=== PATIENT | female | born 1930 | race Caucasian/White ===

== ENCOUNTER 2018-02-03 09:08 | Inpatient (IN) | payer MEDICARE ==
[~2018-02-03] VITALS: Ht 157.5 cm; Wt 75.3 kg
[2018-02-03 10:00] VITALS: BP 139/87
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
[2018-02-03] MEDS ORDERED: VENL75CA62 PO (10:57)
[2018-02-03] MEDS ORDERED: GABA-534 PO (10:57)
[2018-02-03] MEDS ORDERED: GABA600T2 PO (10:57)
[2018-02-03] MEDS ORDERED: DOCU100C58 PO (10:57)
[2018-02-03] MEDS ORDERED: MEMA10TA PO (10:57)
[2018-02-03] MEDS ORDERED: MELO-107 PO (10:57)
[2018-02-03] MEDS ORDERED: AMPI500C11 PO (10:57)
[2018-02-03] MEDS ORDERED: MIRT15TA7 PO (11:00)
--- NOTE | 2018-02-03 11:20 | NUR ---
RIGHT FOREARM IV ACCESS ESTABLISHED. 20G. PATENT AND INTACT.
[2018-02-03] MEDS ORDERED: GABAPENTIN 300 MG CAPSULE PO SCH ×2 (13:00→22:00)
[2018-02-03] MEDS ORDERED: ACETAMINOPHEN 325 MG TABLET PO PRN (13:00)
[2018-02-03] MEDS ORDERED: ONDANSETRON HCL/PF 4 MG/2 ML VIAL IV PRN (13:00)
[2018-02-03 13:32] LABS: BASOPHILS % (AUTO) 0.9 % (0.0-2.0); EOSINOPHILS % (AUTO) 2.8 % (0.0-6.0); HEMATOCRIT 40 % (33-45); HEMOGLOBIN 12.8 g/dL (11.5-14.8); LYMPHOCYTES # (AUTO) 1.3 /CMM (0.8-4.8); LYMPHOCYTES % (AUTO) 32.8 % (20.0-44.0); MEAN CORPUSCULAR HGB CONC 32 g/dl (31.0-36.0); MEAN CORPUSCULAR VOLUME 85 fL (82-100); MONOCYTES # (AUTO) 0.3 /CMM (0.1-1.30); MONOCYTES % (AUTO) 6.9 % (2.0-12.0); NEUTROPHILS # (AUTO) 2.3 /CMM (1.8-8.9); NEUTROPHILS % (AUTO) 56.6 % (43.0-81.0); PLATELET COUNT (AUTO) 181 /CMM (150-450); RDW COEFFICIENT OF VARIATION 15.5 (11.5-15.0); RED BLOOD CELL COUNT(AUTO) 4.74 MIL/uL (4.0-5.2); WHITE BLOOD COUNT (AUTO) 4.1 K/uL (4.3-11.0)
[2018-02-03 13:46] LABS: CALCIUM, SERUM 9.3 mg/dL (8.5-10.1); CARBON DIOXIDE 30 mmol/L (21-32); CHLORIDE 103 mmol/L (98-107); CREATININE 1.1 mg/dL (0.6-1.3); GLUCOSE 130 mg/dL (74-106); POTASSIUM 3.3 mmol/L (3.5-5.1); SODIUM SERUM 141 mmol/L (136-145); UREA NITROGEN, BLOOD 16 mg/dL (7-18)
[2018-02-03 13:52] LABS: ALANINE AMINOTRANSFERASE 33 U/L (12-78); ALBUMIN 3.4 g/dL (3.4-5.0); ALKALINE PHOSPHATASE 55 U/L (46-116); ASPARTATE AMINOTRANSFERASE 48 U/L (15-37); BILIRUBIN,TOTAL 0.3 mg/dL (0.2-1.0)
[2018-02-03] MEDS ORDERED: LEVOFLOXACIN 500 MG /D5W 100ML 500 MG in PREMIX 1 EA IV ONE (14:00)
[2018-02-03] MEDS: Potassium Chloride 20 MEQ in IV D5/ 0.9% NACL 1,000 ML IV PRN (14:45)
[2018-02-03] MEDS: ENOXAPARIN SODIUM 30 MG/0.3 ML DISP.SYRIN SQ SCH (14:47)
[2018-02-03 16:00] VITALS: BP 148/93
[2018-02-03] MEDS: DOCUSATE SODIUM 100 MG CAPSULE PO SCH (17:13)
[2018-02-03] MEDS: MELOXICAM 7.5 MG TABLET PO SCH (17:13)
[2018-02-03] MEDS: HYDROCODONE/APAP 5/325MG 1 EACH TABLET PO PRN (18:22)
--- NOTE | 2018-02-03 19:20 | NUR ---
MS RN OPENING NOTE Patient was seen sitting upright in bed AAOx2, breathing comfortably on RA with no SOB, and no signs of acute distress. D5NS with 20mEq of KCl is running at 80ml/hr through the right FA with no signs of leaking or infiltration. Patient was educated on the use of the call rossa, as well the need to collect urine for culture and UA; patient verbalized understanding. and family are currently at the bedside. Bed is low/locked, two side rails up, and call rosas within reach. Patient has no immediate needs/concerns at this time. Will continue to monitor.
--- NOTE | 2018-02-03 19:20 | NUR ---
MS RN CLOSING NOTE PATIENT IN BED. ALERT ORIENTED X2-3. ON ROOM AIR. TOLERATING WELL. IN NO APPARENT DISTRESS OR DISCOMFORT AT THIS TIME. RESPIRATIONS EVEN AND UNLABORED. DENIES PAIN AND SOB. PATIENT IS ABLE TO COMMUNICATE NEEDS. IV ACCESS ON RIGHT FOREARM 22G, WITH FLUIDS RUNNING AT 80ML/HR. PATIENT IS ABLE TO USE BATHROOM WITH ASSISTANCE. DIAPER IN PLACE3 FOR OCCASIONAL INCONTINENCE. ALL NEEDS ATTENDED. ORDERS CARRIED OUT. ALL DUE MEDICATIONS GIVEN. SAFETY MEASURES IN PLACE, FAMILY AT BEDSIDE. BED IN LOW LOCKED POSITION, SIDE RAILS UP X2, CALL LIGHT WITHIN EASY REACH. WILL ENDORSE TO PM NURSE FOR ARGELIA.
[2018-02-03 20:00] VITALS: BP 151/81
[2018-02-03] MEDS: MIRTAZAPINE 15 MG TABLET PO SCH (21:22)
[2018-02-03] MEDS: GABAPENTIN 300 MG CAPSULE PO SCH (21:23)
[2018-02-03] MEDS: MEMANTINE HCL 5 MG TABLET PO SCH (21:23)
[2018-02-03] MEDS: POLYETHYLENE GLYCOL 3350 17 GM POWD.PACK PO SCH (21:23)
--- NOTE | 2018-02-04 02:30 | NUR ---
MS RN NOTE - IV out, new IV inserted Upon entering the patient's room, I observed the patient's IV had been pulled out or removed from her right FA. A new IV was inserted into the patient's right wrist (22g); IV had positive blood return and flushed easily with no pain/discomfort. IVF D5NS w/ KCl was reconnected and is running at 80ml/hr with no signs of leaking or infiltration.
[2018-02-04] MEDS: Potassium Chloride 20 MEQ in IV D5/ 0.9% NACL 1,000 ML IV PRN (05:16)
--- NOTE | 2018-02-04 07:02 | NUR ---
MS RN CLOSING NOTE Patient slept well overnight without complications and remains in stable condition with no signs of acute distress. Patient care endorsed to day shift nurse.
[2018-02-04 07:14] LABS: BASOPHILS % (AUTO) 0.3 % (0.0-2.0); EOSINOPHILS % (AUTO) 3.8 % (0.0-6.0); HEMATOCRIT 37 % (33-45); HEMOGLOBIN 11.8 g/dL (11.5-14.8); LYMPHOCYTES # (AUTO) 1.5 /CMM (0.8-4.8); LYMPHOCYTES % (AUTO) 40.8 % (20.0-44.0); MEAN CORPUSCULAR HGB CONC 32 g/dl (31.0-36.0); MEAN CORPUSCULAR VOLUME 86 fL (82-100); MONOCYTES # (AUTO) 0.4 /CMM (0.1-1.30); MONOCYTES % (AUTO) 9.7 % (2.0-12.0); NEUTROPHILS # (AUTO) 1.7 /CMM (1.8-8.9); NEUTROPHILS % (AUTO) 45.4 % (43.0-81.0); PLATELET COUNT (AUTO) 133 /CMM (150-450); RDW COEFFICIENT OF VARIATION 16.1 (11.5-15.0); RED BLOOD CELL COUNT(AUTO) 4.25 MIL/uL (4.0-5.2); WHITE BLOOD COUNT (AUTO) 3.8 K/uL (4.3-11.0)
[2018-02-04 07:24] LABS: CALCIUM, SERUM 7.8 mg/dL (8.5-10.1); CARBON DIOXIDE 30 mmol/L (21-32); CHLORIDE 106 mmol/L (98-107); CREATININE 1.3 mg/dL (0.6-1.3); GLUCOSE 140 mg/dL (74-106); MAGNESIUM 1.5 mg/dL (1.8-2.4); POTASSIUM 3.1 mmol/L (3.5-5.1); SODIUM SERUM 145 mmol/L (136-145); UREA NITROGEN, BLOOD 13 mg/dL (7-18)
[2018-02-04 08:00] VITALS: BP 174/113
--- NOTE | 2018-02-04 08:00 | NUR ---
MS NELL AM NOTES Patient was seen sitting upright in bed AAOx2, breathing comfortably on RA with no SOB, and no signs of acute distress. D5NS with 20mEq of KCl is running at 80ml/hr through the right WRIST with no signs of leaking or infiltration. Patient was educated on the use of the call rosas, as well the need to collect urine for culture and UA; patient verbalized understanding. and family are currently at the bedside. Bed is low/locked, two side rails up, and call rosas within reach. Patient has no immediate needs/concerns at this time. Will continue to monitor.
[2018-02-04] MEDS ORDERED: POTASSIUM CHLORIDE 20 MEQ TAB.PRT.SR PO ONE (08:30)
[2018-02-04] MEDS ORDERED: CLONIDINE HCL 0.1 MG TABLET PO PRN (08:30)
[2018-02-04] MEDS: VENLAFAXINE XR 75 MG CAP.SR.24H PO SCH (09:12)
[2018-02-04] MEDS: Magnesium 1GM/D5W 100ML PREMIX 100 ML IV SCH ×2 (09:12→11:13)
[2018-02-04] MEDS: DOCUSATE SODIUM 100 MG CAPSULE PO SCH ×2 (09:12→18:52)
[2018-02-04] MEDS: GABAPENTIN 300 MG CAPSULE PO SCH ×3 (09:12→21:33)
[2018-02-04] MEDS: ENOXAPARIN SODIUM 30 MG/0.3 ML DISP.SYRIN SQ SCH (09:13)
[2018-02-04] MEDS: PANTOPRAZOLE 40 MG TABLET.DR PO SCH (09:14)
--- NOTE | 2018-02-04 09:40 | NUR ---
PT WALKED WITH P.T.,RANIER USING FWW WITH ASSIST ALONG THE HALLWAY TOLERATING WELL.HELD MAG TEMPORARILY.WILL RESUME AFTER P.T. TX.
--- NOTE | 2018-02-04 10:31 | NUR ---
PT IS BROUGHT DOWN TO RADIOLOGY FOR XRAY OF LUMBAR SPINE COMPLETE D/T BACK PAIN.
[2018-02-04] MEDS: LEVOFLOXACIN 250 MG /D5W 50 ML 250 MG in PREMIX 1 EA IV SCH (14:55)
--- NOTE | 2018-02-04 18:00 | NUR ---
PT RESTING IN BED DENYING ANY PAIN OR DISTRESS.WITH ONGOING IVF OF NS+20MEQ KCL INFUSING WELL TO RT WRIST.CALL LIGHT PLACED WITHIN REACH.
[2018-02-04] MEDS: MELOXICAM 7.5 MG TABLET PO SCH (18:53)
[2018-02-04 19:08] LABS: APPEARANCE,URINE SL CLOUDY (CLEAR); BILIRUBIN,URINE NEGATIVE (NEGATIVE); BLOOD, URINE NEGATIVE Ery/uL (NEGATIVE); COLOR,URINE YELLOW (YELLOW); KETONES,URINE NEGATIVE (NEGATIVE); LEUKOCYTE ESTERASE ,URINE NEGATIVE (NEGATIVE); NITRITE, URINE NEGATIVE (NEGATIVE); PH,URINE 7.5 (5.0-8.0); PROTEIN,URINE NEGATIVE (NEGATIVE); UGLUCOSE NEGATIVE (NEGATIVE); UROBILINOGEN,URINE 0.2 EU/dL (0.2)
--- NOTE | 2018-02-04 19:30 | NUR ---
RECEIVED PT IN BED W/ AT THE BED SIDE. BREATHING EVENLY .NO SOB. NAD. SKIN WARM AND DRY, W/ C/O LOWER BACK PAIN. ON ONGOING IVF HYDRATION AGUSTO WELL. IV SITE INTACT AND PATENT. NEEDS ATTENDED. BED LOW LOCKED. CALL LIGHT WITHIN REACH, WILL CONT TO MONITOR,
[2018-02-04 20:00] VITALS: BP 145/94
[2018-02-04] MEDS: HYDROCODONE/APAP 5/325MG 1 EACH TABLET PO PRN (20:06)
--- NOTE | 2018-02-04 20:10 | NUR ---
NORCO GIVEN FOR C/O LOWER BACK. PT WAS ALSO PROVIDED WITH A WARM PACK. WILL CONT TO MONITOR ,
[2018-02-04] MEDS: POLYETHYLENE GLYCOL 3350 17 GM POWD.PACK PO SCH (21:32)
[2018-02-04] MEDS: MEMANTINE HCL 5 MG TABLET PO SCH (21:33)
[2018-02-04] MEDS: MIRTAZAPINE 15 MG TABLET PO SCH (21:33)
[2018-02-05] MEDS: Potassium Chloride 20 MEQ in IV D5/ 0.9% NACL 1,000 ML IV PRN (05:22)
[2018-02-05 06:17] LABS: CALCIUM, SERUM 7.7 mg/dL (8.5-10.1); CARBON DIOXIDE 28 mmol/L (21-32); CHLORIDE 108 mmol/L (98-107); CREATININE 1.1 mg/dL (0.6-1.3); GLUCOSE 123 mg/dL (74-106); MAGNESIUM 1.8 mg/dL (1.8-2.4); POTASSIUM 3.4 mmol/L (3.5-5.1); SODIUM SERUM 144 mmol/L (136-145); UREA NITROGEN, BLOOD 8 mg/dL (7-18)
[2018-02-05 06:19] LABS: BASOPHILS % (AUTO) 0.5 % (0.0-2.0); EOSINOPHILS % (AUTO) 4.4 % (0.0-6.0); HEMATOCRIT 37 % (33-45); HEMOGLOBIN 12.2 g/dL (11.5-14.8); LYMPHOCYTES # (AUTO) 1.5 /CMM (0.8-4.8); MEAN CORPUSCULAR HGB CONC 33 g/dl (31.0-36.0); MEAN CORPUSCULAR VOLUME 86 fL (82-100); MONOCYTES # (AUTO) 0.3 /CMM (0.1-1.30); MONOCYTES % (AUTO) 8.5 % (2.0-12.0); NEUTROPHILS # (AUTO) 1.8 /CMM (1.8-8.9); NEUTROPHILS % (AUTO) 47.6 % (43.0-81.0); PLATELET COUNT (AUTO) 116 /CMM (150-450); RDW COEFFICIENT OF VARIATION 15.4 (11.5-15.0); RED BLOOD CELL COUNT(AUTO) 4.34 MIL/uL (4.0-5.2); WHITE BLOOD COUNT (AUTO) 3.8 K/uL (4.3-11.0)
--- NOTE | 2018-02-05 06:24 | NUR ---
PT IN BED SLEEPING . BREATHING EVENLY, NO SOB. NO ACUTE DISTRESS DURING THE NIGHT. WITH EPISODES OF FORGETFULNESS. REMAINED ON CLOSE SUPERVISION FOR SAFETY AND FALL RISK. NEEDS ATTENDED. BED LOW LOCKED. CALL LIGHT WITHIN REACH. SRX3. BED ALARM ON. WILL CONT TO MONITOR AND WILL ENDORSE TO AM SHIFT FOR ARGELIA
[2018-02-05] MEDS: PANTOPRAZOLE 40 MG TABLET.DR PO SCH (07:24)
--- NOTE | 2018-02-05 07:30 | NUR ---
M/S RN - Assessment Patient awake, A/O x 2-3, forgetful, no apparent distress noted, tolerating room air, c/o mild lower back pain but refused to be medicated at this time. Patient stated "I'm okay for now." Xray lumbar spine shows no fracture or dislocation. IVF D5NS +20 meq KCl at 80 ml/hr infusing well on the right wrist with no signs of infiltration. Skin is intact, independent with bed mobility. Fall and aspiration precautions maintained. Patient educated on plan of care.
[2018-02-05 08:00] VITALS: BP 162/103
[2018-02-05] MEDS: GABAPENTIN 300 MG CAPSULE PO SCH ×3 (08:05→21:36)
[2018-02-05] MEDS: DOCUSATE SODIUM 100 MG CAPSULE PO SCH ×2 (08:05→16:24)
[2018-02-05] MEDS: VENLAFAXINE XR 75 MG CAP.SR.24H PO SCH (08:05)
[2018-02-05] MEDS: ENOXAPARIN SODIUM 30 MG/0.3 ML DISP.SYRIN SQ SCH (08:06)
[2018-02-05] MEDS: LEVOFLOXACIN 250 MG /D5W 50 ML 250 MG in PREMIX 1 EA IV SCH (13:35)
[2018-02-05 16:00] VITALS: BP 147/94
[2018-02-05] MEDS: ENSURE ENLIVE 237 ML LIQUID (VANILLA) PO SCH (17:09)
[2018-02-05] MEDS: MELOXICAM 7.5 MG TABLET PO SCH (17:10)
--- NOTE | 2018-02-05 17:37 | NUR ---
M/S RN - Closing notes No significant change in condition noted, remain afebrile, still c/o mild low back pain but refused medication. Family at bedside updated on treatment plan. Possible discharge to SNF ([facility]) vs home with home health tomorrow if stable. Will continue with current medical management.
[2018-02-05 20:00] VITALS: BP 152/83
[2018-02-05] MEDS: POLYETHYLENE GLYCOL 3350 17 GM POWD.PACK PO SCH (21:36)
[2018-02-05] MEDS: MIRTAZAPINE 15 MG TABLET PO SCH (21:36)
[2018-02-05] MEDS: MEMANTINE HCL 5 MG TABLET PO SCH (21:36)
[2018-02-05] MEDS: HYDROCODONE/APAP 5/325MG 1 EACH TABLET PO PRN (22:35)
--- NOTE | 2018-02-06 06:27 | NUR ---
MS RN NOTES PT AWAKE & RESPONSIVE. NOT IN ANY DISTRESS. NO SOB NOTED. DENIES ANY PAIN OR DISCOMFORT AT THIS TIME. WITH IV-HL PATENT & INTACT. MONITORED ACCORDINGLY. CALL LIGHT WITHIN REACH. BED IN LOWEST POSITION. SR UP X 3 WITH BED ALARM ON FOR SAFETY. WILL ENDORSE TO NEXT SHIFT.
--- NOTE | 2018-02-06 07:32 | NUR ---
MS RN NOTES PATIENT RECEIVED RESTING INSIDE ROOM. SLEEPING, EASILY AROUSABLE TROUGH VERBAL AND TACTILE STIMULI. PATIENT ALERT AND ORIENTED X 2. BREATHING EVEN AND UNLABORED. NO SOB OR ACUTE DISTRESS. DENIES ANY PAIN OR DISCOMFORT. WILL CONTINUE TO MONITOR. BED LOCKED AND IN LOW POSITION. BILATERAL UPPER SIDE RAILS UP AND LOCKED. BED ALARM ON. CALL LIGHT WITHIN EASY REACH
[2018-02-06 08:00] VITALS: BP 155/90
[2018-02-06] MEDS: PANTOPRAZOLE 40 MG TABLET.DR PO SCH (08:24)
[2018-02-06] MEDS: VENLAFAXINE XR 75 MG CAP.SR.24H PO SCH (08:24)
[2018-02-06] MEDS: ENSURE ENLIVE 237 ML LIQUID (VANILLA) PO SCH (08:24)
[2018-02-06] MEDS: GABAPENTIN 300 MG CAPSULE PO SCH ×2 (08:24→12:25)
[2018-02-06] MEDS: DOCUSATE SODIUM 100 MG CAPSULE PO SCH (08:24)
[2018-02-06] MEDS: ENOXAPARIN SODIUM 30 MG/0.3 ML DISP.SYRIN SQ SCH (08:25)
[2018-02-06] MEDS: LEVOFLOXACIN 250 MG /D5W 50 ML 250 MG in PREMIX 1 EA IV SCH (13:21)
--- NOTE | 2018-02-06 15:19 | NUR ---
MS RN NOTES PATIENT FOR DISCHARGE HOME TODAY. FOR HOME HEALTH EVALUATION. DISCHARGE INSTRUCTIONS AND EDUCATION GIVEN AND VERBALIZED UNDERSTANDING. IV REMOVED WITH MINIMAL BLEEDING NOTED, PRESSURE DRESSING APPLIED TO SITE. BELONGINGS COMPLETE ON DISCHARGE. NO SKIN BREAKDOWN NOTED. PATIENT LEFT UNIT AT 1500 IN VIA WHEELCHAIR STABLE CONDITION. BREATHING EVEN AND UNLABORED. NO SOB OR ACUTE DISTRESS. NO C/O PAIN OR DISCOMFORT. PATIENT ACCOMPANIED TO PARKING LOT BY NURSING STAFF. PATIENT LEFT HOSPITAL PREMISES VIA PRIVATE CAR, ACCOMPANIED BY FAMILY. MD AWARE OF DISCHARGE.
== END 2018-02-06 15:00 | disposition home health service (06) | DRG 871 ==
LOC: MED 09:08
PROVIDERS: ADMIT Legal Medicine; ATTEND Legal Medicine
DX: A41.9 Sepsis, unspecified organism (principal); G93.41 Metabolic encephalopathy; N39.0 Urinary tract infection, site not specified; F03.91 Unspecified dementia, unspecified severity, with behavioral disturbance; R29.6 Repeated falls; Z79.899 Other long term (current) drug therapy; F32.9 Major depressive disorder, single episode, unspecified; M12.9 Arthropathy, unspecified; Z87.440 Personal history of urinary (tract) infections; G89.4 Chronic pain syndrome; I10 Essential (primary) hypertension; F41.9 Anxiety disorder, unspecified
CPT/HCPCS: 36415; 71045-TC; 72110-TC; 80048-TC; 80053-TC; 81000-TC; 83735-TC; 85025-TC; 87040-TC; 87081-TC; 87086-TC; 97116-TC; 97530-TC; A4216; G0378; J1650; J1956; J3475; J3480; J7042; Z7610

== ENCOUNTER 2018-05-12 21:48 | Inpatient (IN) | payer MEDICARE ==
[~2018-05-12] VITALS: Ht 160 cm; Wt 63.5 kg
[~2018-05-12 21:48] MED LIST: ASPI-1169 PO; ATOR40TA PO; DOCU100C58 PO; GABA-534 PO; GABA600T12 PO; MELO-107 PO; MEMA10TA PO; MIRT15TA7 PO; VENL75CA62 PO
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
--- NOTE | 2018-05-12 22:01 | NUR ---
[employer] AT BEDSIDE
--- NOTE | 2018-05-12 22:05 | NUR ---
[employer] AT BEDSIDE FOR BLOOD DRAW
[2018-05-12 22:11] LABS: BASOPHILS # (AUTO) 0.1 /CMM (0.0-0.2); BASOPHILS % (AUTO) 1.1 % (0.0-2.0); EOSINOPHILS % (AUTO) 4.5 % (0.0-6.0); HEMATOCRIT 45 % (33-45); HEMOGLOBIN 14.9 g/dL (11.5-14.8); LYMPHOCYTES # (AUTO) 1.8 /CMM (0.8-4.8); LYMPHOCYTES % (AUTO) 38.7 % (20.0-44.0); MEAN CORPUSCULAR HGB CONC 33 g/dl (31.0-36.0); MEAN CORPUSCULAR VOLUME 84 fL (82-100); MONOCYTES # (AUTO) 0.4 /CMM (0.1-1.30); MONOCYTES % (AUTO) 9.4 % (2.0-12.0); NEUTROPHILS # (AUTO) 2.2 /CMM (1.8-8.9); NEUTROPHILS % (AUTO) 46.3 % (43.0-81.0); PLATELET COUNT (AUTO) 198 /CMM (150-450); RED BLOOD CELL COUNT(AUTO) 5.42 MIL/uL (4.0-5.2); WHITE BLOOD COUNT (AUTO) 4.7 K/uL (4.3-11.0)
--- NOTE | 2018-05-12 22:22 | NUR ---
PT UNABLE TO PROVIDE URINE AT THIS TIME. MD [place]
[2018-05-12 22:26] LABS: ALANINE AMINOTRANSFERASE 17 U/L (12-78); ALBUMIN 3.9 g/dL (3.4-5.0); ALCOHOL, BLOOD < 3 mg/dL (0-0); ALKALINE PHOSPHATASE 72 U/L (46-116); ASPARTATE AMINOTRANSFERASE 26 U/L (15-37); BILIRUBIN,DIRECT 0.1 mg/dL (0.0-0.2); BILIRUBIN,TOTAL 0.4 mg/dL (0.2-1.0); CALCIUM, SERUM 10.1 mg/dL (8.5-10.1); CARBON DIOXIDE 29 mmol/L (21-32); CHLORIDE 100 mmol/L (98-107); CREATININE 1.6 mg/dL (0.6-1.3); GLUCOSE 107 mg/dL (74-106); SODIUM SERUM 141 mmol/L (136-145); TOTAL PROTEIN, SERUM 9.2 g/dL (6.4-8.2); UREA NITROGEN, BLOOD 20 mg/dL (7-18)
[2018-05-12] MEDS ORDERED: CLONIDINE HCL 0.1 MG TABLET PO ONE (22:30)
[2018-05-12] MEDS ORDERED: CLONIDINE HCL 0.1 MG TABLET ONE (22:30)
[2018-05-12 22:32] LABS: ACETAMINOPHEN 0 ug/ml (10-30); SALICYLATE 1.7 mg/dL (2.8-20.0)
--- NOTE | 2018-05-12 22:35 | NUR ---
URINE COLLECTED AND SENT TO LAB
[2018-05-12 22:49] LABS: APPEARANCE,URINE Clear (CLEAR); BILIRUBIN,URINE Negative (NEGATIVE); BLOOD, URINE Negative Ery/uL (NEGATIVE); COLOR,URINE Yellow (YELLOW); KETONES,URINE Negative (NEGATIVE); LEUKOCYTE ESTERASE ,URINE Negative (NEGATIVE); NITRITE, URINE Negative (NEGATIVE); PROTEIN,URINE Negative (NEGATIVE); UGLUCOSE Negative (NEGATIVE); UROBILINOGEN,URINE 0.2 EU/dL (0.2)
--- NOTE | 2018-05-12 22:50 | NUR ---
PT BECAME CONFUSED AND AGGRESSIVE. PT STARTED YELLING AND TRYING TO CLIMB OUT OF BED. FAMILY AT BEDSIDE. AWARE.
[2018-05-12] MEDS ORDERED: POTASSIUM CHLORIDE 20 MEQ TAB.PRT.SR PO ONE ×3 (23:00→23:37)
[2018-05-12] MEDS ORDERED: LORAZEPAM INJ 2 MG/ML VIAL IM ONE (23:00)
[2018-05-12] MEDS ORDERED: LORAZEPAM INJ 2 MG/ML VIAL ONE (23:04)
--- NOTE | 2018-05-13 00:12 | NUR ---
RAZ FREY AT BEDSIDE
--- NOTE | 2018-05-13 00:43 | NUR ---
GAVE REPORT TO SHELBI CAMEJO FOR ARGELIA
--- NOTE | 2018-05-13 01:07 | NUR ---
PT TRANSFERRED TO [facility] BED 214 VIA WHEELCHAIR
--- NOTE | 2018-05-13 01:15 | NUR ---
GPS-CORPORATE OPERATIONS COMPLIANCE MANAGER NOTES: PATIENT ADMITTED FROM ER INITIALLY FROM HOME. ADMITTED ON 5150 FOR DTS/DTO/GD. CAME TO THE UNIT AROUND 0115 VIA WHEELCHAIR, BROUGHT IN BY ER STAFF. PATIENT IS ADMITTED DUE TO THOUGHTS OF WANTING TO HURT HER . PATIENT WAS CONFUSED, NOT MAKING SENSE. PATIENT WAS YELLING REFUSING SERVICES FROM MEDICAL STAFF. PLACED PATIENT IN BED COMFORTABLY. PATIENT SHOWS NO S/SX OF ANY DISTRESS, RESPIRATION EVEN, BREATHING PATTERN NON-LABORED, DENIES PAIN OR DISCOMFORT AT THIS TIME . UPON FACE TO FACE ASSESSMENT PATIENT IS ALERT, ORIENTED X1, COOPERATIVE, ANXIOUS AND CONFUSED. AMBULATORY WITH ASSISTANCE . BELONGINGS WERE INVENTORIED AND CHECKED FOR CONTRABAND. PATIENT'S SON AT BEDSIDE. ORDERS WERE OBTAINED FROM DR. LEMON, AND UNDER THE MEDICAL CARE OF DR. CORADO LEFT VOICE MESSAGE REGARDING PT'S ADMISSION, AWAITING FOR CALL BACK. SKIN ASSESSMENT DONE. SKIN IS CLEAR AND INTACT. BED LOCKED AND PLACED ON LOWEST POSITION TO MAINTAIN SAFETY. WILL CONTINUE TO MONITOR Q 15 MINS. FOR SAFETY AND BEHAVIOR.
[2018-05-13] MEDS ORDERED: MAGNESIUM HYDROXIDE 30 ML UDC PO PRN (01:30)
[2018-05-13] MEDS ORDERED: MAG HYDROX/AL HYDROX/SIMETH 30 ML UDC PO PRN (01:30)
[2018-05-13] MEDS: ACETAMINOPHEN 325 MG TABLET PO PRN (01:53)
[2018-05-13] MEDS: LORAZEPAM 0.5 MG TABLET PO PRN ×3 (02:21→16:51)
[2018-05-13 02:32] VITALS: BP 141/88
--- NOTE | 2018-05-13 07:00 | NUR ---
GPS-RN PER PT'S SON REQUEST TO MOVE PATIENT IN ROOM 214-1. WILL ENDORSE TO THE NEXT SHIFT ACCORDINGLY.
[2018-05-13 07:59] LABS: CREATININE 1.5 mg/dL (0.6-1.3)
[2018-05-13 08:00] VITALS: BP 140/92
[2018-05-13] MEDS ORDERED: GABAPENTIN 300 MG CAPSULE PO SCH ×2 (13:00→22:00)
[2018-05-13] MEDS ORDERED: OLANZAPINE 10 MG VIAL IM ONE (14:00)
--- NOTE | 2018-05-13 15:04 | NUR ---
pt very anxious, restless, emotional, tearful. unable to control her own behavior/emotion. Psychiatrist orders zyprexa 5 mg IM x 1 now. Pt voluntary accepted the injection and no physical restraint needed. will continue to monitor patient for safety.
[2018-05-13 16:00] VITALS: BP 122/82
--- NOTE | 2018-05-13 16:11 | NUR ---
ERICH met with the pt's son, Ld ([phone]), and the pt's , Aroldo ([phone]), and discussed the initial discharge plan of the pt returning to her home with a caregiver. The pt's son and also met with their psychiatrist, Dr. Austin, and he informed them that the pt will be at the hospital for about one week and the discharge plan for her to return to her home is acceptable.
[2018-05-13] MEDS: DOCUSATE SODIUM 100 MG CAPSULE PO SCH (16:44)
[2018-05-13] MEDS: GABAPENTIN 300 MG CAPSULE PO SCH ×2 (16:44→21:00)
[2018-05-13] MEDS: MELOXICAM 7.5 MG TABLET PO SCH (18:46)
[2018-05-13] MEDS ORDERED: LORAZEPAM 0.5 MG TABLET PO PRN (19:30)
[2018-05-13 20:21] VITALS: BP 159/94
[2018-05-13] MEDS: OLANZAPINE 2.5 MG TABLET PO SCH (21:00)
[2018-05-13] MEDS: MEMANTINE HCL 5 MG TABLET PO SCH (21:00)
[2018-05-13 21:56] VITALS: BP 145/84
--- NOTE | 2018-05-13 21:56 | NUR ---
GPS-RN NOTES: RECEIVED PATIENT ASLEEP, AROUSES EASILY. RESPONDS TO INTERNAL STIMULI. SCHEDULED MEDICATIONS FOR 2100 WAS NOT GIVEN DUE TO PATIENT IS SLEEPY/SEDATED. V/S STABLE. NO S/SX OF ACUTE DISTRESS NOTED. WILL CONTINUE TO MONITOR CLOSELY PATIENT'S SAFETY AND BEHAVIOR.
[2018-05-13] MEDS ORDERED: MEMANTINE HCL 5 MG TABLET PO SCH (22:00)
[2018-05-14 03:15] VITALS: BP 144/72
[2018-05-14 07:45] LABS: CHOLESTEROL 228 mg/dL (<200); HDL CHOLESTEROL 40 mg/dL (40-60); LDL 168 mg/dL (0-99); TRIGLYCERIDES 243 mg/dL (30-150)
[2018-05-14 08:00] VITALS: BP 123/65
[2018-05-14] MEDS: OLANZAPINE 2.5 MG TABLET PO SCH ×2 (09:00→21:45)
[2018-05-14] MEDS: DOCUSATE SODIUM 100 MG CAPSULE PO SCH ×2 (09:00→17:55)
[2018-05-14] MEDS: GABAPENTIN 300 MG CAPSULE PO SCH ×4 (10:46→21:45)
[2018-05-14] MEDS: MEMANTINE HCL 5 MG TABLET PO SCH ×2 (10:47→21:44)
--- NOTE | 2018-05-14 13:04 | NUR ---
ERICH met with the pt's , Aroldo ([phone]), and informed him that the pt's psychiatrist is recommending that the pt be discharged home the following week and have a time clock inspector caregiver present. He stated that she does not need a facility at this time and would benefit from being in a home setting where she is looked after. Pt's said that he wanted to have a discussion with [facility] as a backup option.
[2018-05-14] MEDS: VENLAFAXINE XR 75 MG CAP.SR.24H PO SCH (13:09)
--- NOTE | 2018-05-14 16:00 | NUR ---
Initial Discharge Plan: Pt currently resides at home with her family and caregiver at [address] [place] [address]; ([phone]). Per pt, she would like to return home. SW spoke to the pt's psychiatrist, Dr. Austin, and he believes that the pt will be safe to return home with a caregiver. ERICH will continue to work with the family and the MD regarding appropriate discharge planning. SW will form a safe and proper discharge.
[2018-05-14 16:03] VITALS: BP 127/71
[2018-05-14] MEDS: MELOXICAM 7.5 MG TABLET PO SCH (17:55)
--- NOTE | 2018-05-14 19:30 | NUR ---
GPS RN NOTES RECEIVED THIS VERY PLEASANT LADY,A/O 1-2,CALM AND ABLE TO FOLLOW SIMPLE COMMAND.FAMILY MEMBERS AT BEDSIDE.ABLE TO AMBULATE WITH STANDBY ASSIST.MONITOR Q 15 MINUTES FOR SAFETY AND PER PROTOCOL.WILL CONTINUE TO MONITOR BEHAVIOR.
[2018-05-14 20:00] VITALS: BP 124/69
[2018-05-14] MEDS: ATORVASTATIN 10 MG TABLET PO SCH (21:45)
--- NOTE | 2018-05-15 06:33 | NUR ---
GPS RN NOTES CALM AND QUIET THRU OUT SHIFT,SLEPT WELL,VERBALIZED NEEDS.NO EPISODE OF COMBATIVENESS.ENDORSED TO DAY NURSE FOR ARGELIA.
[2018-05-15 07:52] LABS: BASOPHILS % (AUTO) 0.5 % (0.0-2.0); EOSINOPHILS % (AUTO) 3.9 % (0.0-6.0); HEMATOCRIT 41 % (33-45); HEMOGLOBIN 13.4 g/dL (11.5-14.8); LYMPHOCYTES # (AUTO) 1.7 /CMM (0.8-4.8); LYMPHOCYTES % (AUTO) 34.3 % (20.0-44.0); MEAN CORPUSCULAR HGB CONC 32 g/dl (31.0-36.0); MEAN CORPUSCULAR VOLUME 83 fL (82-100); MONOCYTES # (AUTO) 0.5 /CMM (0.1-1.30); MONOCYTES % (AUTO) 9.5 % (2.0-12.0); NEUTROPHILS # (AUTO) 2.6 /CMM (1.8-8.9); NEUTROPHILS % (AUTO) 51.8 % (43.0-81.0); PLATELET COUNT (AUTO) 128 /CMM (150-450); RED BLOOD CELL COUNT(AUTO) 4.96 MIL/uL (4.0-5.2)
[2018-05-15 08:00] VITALS: BP_SYST 145; BP_SYST 163; BP_DIAS 93; BP_DIAS 96
[2018-05-15 08:03] LABS: CALCIUM, SERUM 9.8 mg/dL (8.5-10.1); CARBON DIOXIDE 30 mmol/L (21-32); CHLORIDE 104 mmol/L (98-107); CREATININE 1.4 mg/dL (0.6-1.3); GLUCOSE 117 mg/dL (74-106); SODIUM SERUM 144 mmol/L (136-145); UREA NITROGEN, BLOOD 18 mg/dL (7-18)
[2018-05-15] MEDS ORDERED: POTASSIUM CHLORIDE 20 MEQ TAB.PRT.SR PO ONE (09:00)
[2018-05-15] MEDS: VENLAFAXINE XR 75 MG CAP.SR.24H PO SCH (09:08)
[2018-05-15] MEDS: DOCUSATE SODIUM 100 MG CAPSULE PO SCH ×2 (09:08→17:32)
[2018-05-15] MEDS: OLANZAPINE 2.5 MG TABLET PO SCH ×2 (09:09→20:57)
[2018-05-15] MEDS: GABAPENTIN 300 MG CAPSULE PO SCH ×4 (09:09→20:56)
[2018-05-15] MEDS: MEMANTINE HCL 5 MG TABLET PO SCH ×2 (09:13→20:55)
[2018-05-15] MEDS: LORAZEPAM 0.5 MG TABLET PO PRN ×2 (10:42→20:58)
--- NOTE | 2018-05-15 10:43 | NUR ---
GPS/RN-NOTES PATIENT PACING IN AND OUT THE ROOM CRYING FOCUSING ON GOING ON HOME DR. LEMON TALK TO THE PATIENT. MOLD CHANGER OFFERED ATIVAN AND PATIENT AGREES, ATIVAN 1MG P.O GIVEN PRN ORDER. WILL CONT. MONITORING FOR SAFETY AND BEHAVIOR.
--- NOTE | 2018-05-15 11:45 | NUR ---
GPS/RN-NOTES PATIENT IN THE DAY ROOM AWAKE,ALERT CALM NO ACUTE DISTRESS NOTED, INTERACTING WITH HER ,
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
--- NOTE | 2018-05-15 12:45 | NUR ---
GPS/RN-NOTES [facility] ( [facility]) MADE AWARE OF THE FALL INCIDENT.
--- NOTE | 2018-05-15 13:43 | NUR ---
GPS/RN-NOTES DR. CORADO MADE AWARE OF INCIDENT WITH T.O ORDER OF CT OF THE HEAD W/O CONTRAST AND XR OF THE RIGHT HIP, NOTED AND CARRIED OUT. DR. LEMON ALSO MADE AWARE OF THE INCIDENT.
--- NOTE | 2018-05-15 15:52 | NUR ---
GPS/RN-NOTES PATIENT'S SPOUSE MADELYN LILLY ([phone]) MADE AWARE OF THE INCIDENT.
[2018-05-15 16:00] VITALS: BP 149/96
[2018-05-15] MEDS: MELOXICAM 7.5 MG TABLET PO SCH (17:32)
--- NOTE | 2018-05-15 17:38 | NUR ---
RN-CO: Patient is alert to name only, easily agitated, confused. Very high fall risk, not understanding concept, status post fall incident. Dr Austin ordered 1:1 sitter, noted.
[2018-05-15] MEDS: ACETAMINOPHEN 325 MG TABLET PO PRN (18:31)
--- NOTE | 2018-05-15 18:33 | NUR ---
GPS/RN-NOTES PATIENT IN THE DAY ROOM AWAKE,ALERT INTERACTING WITH FAMILY MEMBER. PER FAMILY, PATIENT C/O HEADACHE AND REQUESTING FOR PAIN MEDICATION. TYLENOL 650MG P.O GIVEN PRN ORDER.WILL CONT. MONITORING .
--- NOTE | 2018-05-15 19:41 | NUR ---
GPS/RN-NOTES PATIENT STILL IN THE DAY ROOM INTERACTING WITH FAMILY,CALM NO ACUTE DISTRESS NOTED. NO C/O PAIN OR DISCOMFORT. FAMILY REQUESTED TO GIVE STOOL SOFTENER PER RECORD PATIENT HAD BM ON . FAMILY STATED SHE NEEDS TO HAVE BM EVERYDAY. ENDORSE TO NIGHT NURSE FOR CONTINUITY OF CARE AND TO GIVE MOM AND MONITOR.
[2018-05-15 20:00] VITALS: BP 149/92
[2018-05-15] MEDS: ATORVASTATIN 10 MG TABLET PO SCH (20:57)
--- NOTE | 2018-05-15 20:59 | NUR ---
C/O CONSTIPATION, LAST BOWEL MOVEMENT 05/13, MILK OF MAGNESIA 30 ML PO GIVEN.
[2018-05-16 08:00] VITALS: BP 158/98
[2018-05-16] MEDS: GABAPENTIN 300 MG CAPSULE PO SCH ×4 (09:11→20:57)
[2018-05-16] MEDS: VENLAFAXINE XR 75 MG CAP.SR.24H PO SCH (09:11)
[2018-05-16] MEDS: OLANZAPINE 2.5 MG TABLET PO SCH ×2 (09:11→20:57)
[2018-05-16] MEDS: MEMANTINE HCL 5 MG TABLET PO SCH ×2 (09:11→20:56)
[2018-05-16] MEDS: DOCUSATE SODIUM 100 MG CAPSULE PO SCH ×2 (09:11→17:42)
[2018-05-16] MEDS ORDERED: ANESTHESIA TRAY IN PYXIS 1 EA TRAY MC ONE (10:52)
[2018-05-16 16:00] VITALS: BP 147/88
--- NOTE | 2018-05-16 16:56 | NUR ---
in dining room all day.family in to visit.has 1:1 sitter.
[2018-05-16] MEDS: MELOXICAM 7.5 MG TABLET PO SCH (17:42)
[2018-05-16] MEDS: ACETAMINOPHEN 325 MG TABLET PO PRN (19:35)
--- NOTE | 2018-05-16 19:36 | NUR ---
C/O PAIN ON BOTH KNEES, TYLENOL 650 MG TAB PO GIVEN.
[2018-05-16] MEDS: LORAZEPAM 0.5 MG TABLET PO PRN (20:57)
[2018-05-16] MEDS: ATORVASTATIN 10 MG TABLET PO SCH (20:57)
--- NOTE | 2018-05-16 20:58 | NUR ---
AWAKE, ALERT, CONFUSED, ANXIOUS, ATIVAN 1 MG TAB PO GIVEN.
[2018-05-16] MEDS: SENNOSIDES 8.6 MG TABLET PO SCH (21:08)
[2018-05-17 08:00] VITALS: BP 168/74
[2018-05-17] MEDS: DOCUSATE SODIUM 100 MG CAPSULE PO SCH ×2 (09:37→18:14)
[2018-05-17] MEDS: MEMANTINE HCL 5 MG TABLET PO SCH ×2 (09:37→20:32)
[2018-05-17] MEDS: GABAPENTIN 300 MG CAPSULE PO SCH ×4 (09:37→20:32)
[2018-05-17] MEDS: VENLAFAXINE XR 75 MG CAP.SR.24H PO SCH (09:37)
[2018-05-17] MEDS: OLANZAPINE 2.5 MG TABLET PO SCH ×2 (09:37→20:40)
[2018-05-17 16:00] VITALS: BP_SYST 137; BP_DIAS 76; BP_DIAS 78
[2018-05-17] MEDS: MELOXICAM 7.5 MG TABLET PO SCH (18:14)
[2018-05-17 20:07] VITALS: BP 161/91
[2018-05-17] MEDS: ATORVASTATIN 10 MG TABLET PO SCH (21:54)
[2018-05-17] MEDS: LORAZEPAM 0.5 MG TABLET PO PRN (21:55)
[2018-05-17] MEDS: SENNOSIDES 8.6 MG TABLET PO SCH (21:55)
--- NOTE | 2018-05-17 22:05 | NUR ---
Resident c/o anxiety at 2155 hrs. Least restrictive measures ineffective. Ativan 1 mg/po given as ordered. Will continue to monitor.
--- NOTE | 2018-05-17 23:23 | NUR ---
Post 1 hour Ativan 1mg effective. Pt calm and quiet in bed. Will continue to monitor.
[2018-05-18 08:00] VITALS: BP 151/83
[2018-05-18] MEDS: MEMANTINE HCL 5 MG TABLET PO SCH ×2 (08:32→21:22)
[2018-05-18] MEDS: VENLAFAXINE XR 75 MG CAP.SR.24H PO SCH (08:33)
[2018-05-18] MEDS: DOCUSATE SODIUM 100 MG CAPSULE PO SCH ×2 (08:33→16:58)
[2018-05-18] MEDS: GABAPENTIN 300 MG CAPSULE PO SCH (08:33)
[2018-05-18] MEDS: OLANZAPINE 2.5 MG TABLET PO SCH ×2 (08:37→21:27)
--- NOTE | 2018-05-18 12:25 | NUR ---
Dr. Austin, pt's psychiatrist, and the SW went into the pt's room together to speak to the pt. She was informed about the reason that she is on a 1:1 which was due to fall risk and then it was explained to her that she needs more care and cannot go home at this time.
--- NOTE | 2018-05-18 12:26 | NUR ---
ERICH met with the pt's , Aroldo ([phone]), and informed him that the psychiatrist is no longer recommending that the pt go directly home with a stopping builder. The recommendation is now for the pt to go to a custodial facility for a few weeks for stabilization purposes. Pt's stated that he approves of one facility called [facility] but then he is concerned about it because it is not a locked facility.
[2018-05-18] MEDS: GABAPENTIN 100 MG CAPSULE PO SCH ×3 (12:45→21:22)
[2018-05-18 16:00] VITALS: BP 146/99
[2018-05-18] MEDS: MELOXICAM 7.5 MG TABLET PO SCH (17:02)
[2018-05-18 20:00] VITALS: BP 139/80
[2018-05-18] MEDS: SENNOSIDES 8.6 MG TABLET PO SCH (21:22)
[2018-05-18] MEDS: ATORVASTATIN 10 MG TABLET PO SCH (21:27)
[2018-05-19 08:00] VITALS: BP 130/70
[2018-05-19] MEDS: OLANZAPINE 2.5 MG TABLET PO SCH ×2 (08:46→21:10)
[2018-05-19] MEDS: GABAPENTIN 100 MG CAPSULE PO SCH ×2 (08:46→21:10)
[2018-05-19] MEDS: VENLAFAXINE XR 75 MG CAP.SR.24H PO SCH (08:46)
[2018-05-19] MEDS: MEMANTINE HCL 5 MG TABLET PO SCH ×2 (08:46→21:11)
[2018-05-19] MEDS: DOCUSATE SODIUM 100 MG CAPSULE PO SCH ×2 (08:47→16:19)
[2018-05-19] MEDS: LORAZEPAM 0.5 MG TABLET PO PRN ×2 (10:00→22:07)
--- NOTE | 2018-05-19 13:01 | NUR ---
RN-CO: Per PT, patient was evaluated already. Patient can walked by stand by assist.
[2018-05-19 16:00] VITALS: BP 142/79
[2018-05-19] MEDS: ACETAMINOPHEN 325 MG TABLET PO PRN (16:19)
--- NOTE | 2018-05-19 16:22 | NUR ---
RN-CO: Tylenol 650 mg PO given for lower back pain.
[2018-05-19] MEDS: MELOXICAM 7.5 MG TABLET PO SCH (17:34)
[2018-05-19 20:42] VITALS: BP 140/90
[2018-05-19] MEDS: ATORVASTATIN 10 MG TABLET PO SCH (21:10)
[2018-05-19] MEDS: SENNOSIDES 8.6 MG TABLET PO SCH (21:11)
--- NOTE | 2018-05-19 22:10 | NUR ---
GPS RN NOTES: PT. C/O ANXIETY ,ATIVAN 1 MG PO PRN GIVEN PER PT. REQUEST ,WILL CONTINUE TO MONITOR.
[2018-05-20] MEDS: ACETAMINOPHEN 325 MG TABLET PO PRN (02:36)
[2018-05-20 08:00] VITALS: BP 147/75
[2018-05-20] MEDS: VENLAFAXINE XR 75 MG CAP.SR.24H PO SCH (08:16)
[2018-05-20] MEDS: OLANZAPINE 2.5 MG TABLET PO SCH ×2 (08:16→21:08)
[2018-05-20] MEDS: MEMANTINE HCL 5 MG TABLET PO SCH ×2 (08:16→21:08)
[2018-05-20] MEDS: DOCUSATE SODIUM 100 MG CAPSULE PO SCH ×2 (08:16→17:09)
[2018-05-20] MEDS: GABAPENTIN 100 MG CAPSULE PO SCH ×2 (08:16→21:08)
[2018-05-20] MEDS: LORAZEPAM 0.5 MG TABLET PO PRN ×2 (13:11→20:22)
--- NOTE | 2018-05-20 15:41 | NUR ---
Group note: Pt attended a group session on 05/20/18 at 11AM discussing the topic of what gives them meaning in their lives and what they are looking forward to once they get discharged from the hospital. S: Pt stated that being at home with family is what gives life meaning. I enjoy being around my and my children. I also have a bi solutions architect that I really get along with as well. I like to be in a comfortable environment and make my own decisions. O: Pt was present during the group session and was cooperative. Pt appeared to be in a euthymic mood and presented with an irritated affect. Pt appeared to be comfortable and spoke openly about her life. A: Pt understood that she has to remain patient for her discharge date because the doctor is the only one who can determine that and that would be based off of her progress. P: Pt will continue milieu treatment and medication stabilization.
--- NOTE | 2018-05-20 15:42 | NUR ---
Pt's psychiatrist, Dr. Austin, and the SW spoke to the pt's , Aroldo ([phone]) about the pt being discharged back home on Friday with 11/11 caregiver. Pt's agreed to this plan and stated that he would pick her up after lunch.
[2018-05-20 16:00] VITALS: BP 152/93
[2018-05-20] MEDS: MELOXICAM 7.5 MG TABLET PO SCH (17:09)
[2018-05-20 19:54] VITALS: BP 160/93
--- NOTE | 2018-05-20 20:23 | NUR ---
GPS RN NOTES: PT.C/O ANXIOUS YELLING SCREAMING , NOT FOLLOWING ANY REDIRECTIONS ATIVAN 1 MG MG PO PRN GIVEN , WILL CONTINUE TO MONITOR.
[2018-05-20] MEDS: SENNOSIDES 8.6 MG TABLET PO SCH (21:08)
[2018-05-20] MEDS: ATORVASTATIN 10 MG TABLET PO SCH (21:08)
[2018-05-20 23:00] VITALS: BP 138/70
--- NOTE | 2018-05-21 06:30 | NUR ---
GPS RN NOTES: CALLED TO MY ATTENTION BY EARLINE THAT PATIENT FOUND ON THE FLOOR. IMMEDIATELY WENT TO CHECK/ASSESS PT. AND ASKED WHAT HAPPENED, PT STATED "I WAS TRYING TO STAND UP BY MYSELF, THEN I SLID ON THE FLOOR. PT. C/O LEFT HIP PAIN 2/10, C/O RIGHT ARM PAIN AT A 6/10 ON THE PAIN SCALE, AND PT. CLAIMED SHE BUMPED HER HEAD. UPON ASSESSMENT, NO INJURY NOTED. V/S BP 145/88, HR 82, R 18, T98.0. O2 SATURATION @97%. NOTIFIED DR. CORADO REGARDING THE INCIDENT. DR CORADO ORDERED AN X-RAY ON RIGHT ARM, AN X RAY OF LEFT HIP, AND CT SCAN OF THE HEAD WITHOUT CONTRAST ALL ORDERS NOTED AND CARRIED OUT. PATIENT GIVEN TYLENOL 650MG PO Q6HR PRN ORDERED. NRSG ESCORT BLIND MADE AWARE OF THE INCIDENT, PT'S INFORMED. Addendum: 05/21/18 at 0800 by TAMIKA MONTALVO RN PT. ASSISTED BACK TO BED AND ASSIST TO BATH ROOM
--- NOTE | 2018-05-21 06:58 | NUR ---
GPS RN NOTE, PATIENT HAS A COMPLAINT OF RIGHT ARM PAIN AT 6 OUT OF 10 ON THE PAIN SCALE. PATIENT HAS A COMPLAINT OF LEFT HIP PAIN AT 2 OUT 10 ON THE PAIN SCALE. PATIENT HAS A COMPLAINT OF A HEADACHE AT 2 OUT 10 ON THE PAIN SCALE. PAGED DR SHERIDAN CORADO AND INFORMED HIM OF MY FINDINGS. DR SHERIDAN CORADO ORDERED A STAT X-RAY OF RIGHT FORE ARM, STAT X-RAY LEFT HIP, STAT CT OF HEAD WITHOUT CONTRAST. ALL ORDERS NOTED AND CARRIED OUT. WILL CONTINUE TO MONITOR THIS PATIENT.
[2018-05-21] MEDS: ACETAMINOPHEN 325 MG TABLET PO PRN (07:15)
[2018-05-21 08:00] VITALS: BP_SYST 160; BP_DIAS 96; BP_DIAS 98
[2018-05-21] MEDS: OLANZAPINE 2.5 MG TABLET PO SCH ×2 (08:50→20:51)
[2018-05-21] MEDS: MEMANTINE HCL 5 MG TABLET PO SCH ×2 (08:50→20:52)
[2018-05-21] MEDS: VENLAFAXINE XR 75 MG CAP.SR.24H PO SCH (08:50)
[2018-05-21] MEDS: DOCUSATE SODIUM 100 MG CAPSULE PO SCH ×2 (08:50→17:11)
[2018-05-21] MEDS: GABAPENTIN 100 MG CAPSULE PO SCH ×2 (08:50→20:51)
--- NOTE | 2018-05-21 13:39 | NUR ---
ERICH called the pt's , Aroldo ([phone]), and confirmed that the pt would be discharging back home the next day with a caregiver.
[2018-05-21] MEDS: MELOXICAM 7.5 MG TABLET PO SCH (17:11)
[2018-05-21 20:00] VITALS: BP 157/96
[2018-05-21] MEDS: SENNOSIDES 8.6 MG TABLET PO SCH (20:51)
[2018-05-21] MEDS: ATORVASTATIN 10 MG TABLET PO SCH (20:52)
[2018-05-21] MEDS: LORAZEPAM 0.5 MG TABLET PO PRN (23:28)
[2018-05-22 07:46] LABS: CARBON DIOXIDE 27 mmol/L (21-32); CHLORIDE 105 mmol/L (98-107); CREATININE 1.1 mg/dL (0.6-1.3); GLUCOSE 115 mg/dL (74-106); POTASSIUM 3.3 mmol/L (3.5-5.1); SODIUM SERUM 143 mmol/L (136-145); UREA NITROGEN, BLOOD 19 mg/dL (7-18)
[2018-05-22 08:00] VITALS: BP 159/92
[2018-05-22 08:41] LABS: BASOPHILS % (AUTO) 0.6 % (0.0-2.0); EOSINOPHILS % (AUTO) 4.1 % (0.0-6.0); HEMATOCRIT 40 % (33-45); HEMOGLOBIN 12.9 g/dL (11.5-14.8); LYMPHOCYTES # (AUTO) 1.3 /CMM (0.8-4.8); LYMPHOCYTES % (AUTO) 27.3 % (20.0-44.0); MEAN CORPUSCULAR HGB CONC 32 g/dl (31.0-36.0); MEAN CORPUSCULAR VOLUME 83 fL (82-100); MONOCYTES # (AUTO) 0.3 /CMM (0.1-1.30); MONOCYTES % (AUTO) 6.2 % (2.0-12.0); NEUTROPHILS # (AUTO) 2.9 /CMM (1.8-8.9); NEUTROPHILS % (AUTO) 61.8 % (43.0-81.0); PLATELET COUNT (AUTO) 147 /CMM (150-450); RED BLOOD CELL COUNT(AUTO) 4.82 MIL/uL (4.0-5.2); WHITE BLOOD COUNT (AUTO) 4.7 K/uL (4.3-11.0)
[2018-05-22] MEDS: MEMANTINE HCL 5 MG TABLET PO SCH (08:48)
[2018-05-22] MEDS: DOCUSATE SODIUM 100 MG CAPSULE PO SCH (08:48)
[2018-05-22] MEDS: VENLAFAXINE XR 75 MG CAP.SR.24H PO SCH (08:48)
[2018-05-22] MEDS: OLANZAPINE 2.5 MG TABLET PO SCH (08:48)
[2018-05-22] MEDS: GABAPENTIN 100 MG CAPSULE PO SCH (08:48)
--- NOTE | 2018-05-22 10:47 | NUR ---
ERICH called the pt's , Aroldo ([phone]), and informed him that the pt needs to have a follow up appointment made within a week of her discharge with her psychiatrist. He stated that the doctor's office is closed today but he left a message to make an appointment so he will call the SW back on Friday with the appointment information.
--- NOTE | 2018-05-22 10:48 | NUR ---
ERICH faxed the pt's discharge packet to her psychiatrist, Dr. Austin's office, to the fax number: [phone].
[2018-05-22] MEDS ORDERED: POTASSIUM CHLORIDE 20 MEQ TAB.PRT.SR PO SCH (11:00)
--- NOTE | 2018-05-22 13:00 | NUR ---
Discharge Note: Pt was discharged home to [address] [place] [address]; ([phone]). Pt was picked up at 12:30pm by her , Aroldo ([phone]). Pt will have a 24/7 caregiver in her home to attend to her needs. Upon discharge, the pt appeared to be in a euthymic mood and presented with a calm affect. Pt stated that she was very happy to be going back home because that is where she belongs. Pt denied both suicidal and homicidal ideation as well as auditory and visual hallucinations. Pt will be under the care of his psychiatrist, Dr. Austin, [place] [address] [facility] [address] [address]; and her design intern, Dr. Cummins, located at [address] [address]; . Pts attempted to make a follow up appointment with her psychiatrist, Dr. Austin, but the office was closed today. Pts stated that he left a message and will call the back with that follow up appointment when it is made. Addendum: 05/25/18 at 1124 by FERMIN JUNG Pt has a follow up [place] with Dr[place] [address] [facility] [address], [place] [address]; on Friday, June 01 at 5PM.
--- NOTE | 2018-05-22 13:00 | NUR ---
GPS/RN PT DISCHARGED HOME TODAY. NO SI OR HI AT THE TIME OF D/C. PROPERTY RETURNED AND ID BAND REMOVED.EXIT CARE INSTRUCTIONS AND PRESCRIPTIONS PROVIDED. PT SEEN BY DR CORADO AND MEDICALLY CLEARED PRIOR TO D/C. PT LEFT VIA W/C TO THE PRIVATE CAR DRIVEN BY HER SON ODIN. PT' S ACCOMPANIED PT WELL. PT REFUSED TO SIGN D/C PAPERWORK ON DISCHARGE.
--- NOTE | 2018-05-25 11:17 | NUR ---
SW called the pt's , Aroldo ([phone]), and reminded him to make an appointment with Dr. Austin and to call the SW back with that information.
--- NOTE | 2018-05-25 11:24 | NUR ---
Pt's , Aroldo ([phone]), called the SW and stated that the pt has a follow up appointment with her psychiatrist, Dr. Austin, located at [id number] [place] [address]; on June 01 at 5PM.
[2018-07-13] MEDS ORDERED: LEVO500T75 PO (10:17)
[2018-07-13] MEDS ORDERED: OSEL75CA PO (10:17)
== END 2018-05-22 13:00 | disposition home or self-care (01) | DRG 885 ==
LOC: ER 21:50 → GPS 05-13 00:55
PROVIDERS: ADMIT Psychiatry & Neurology Psychiatry; ATTEND Psychiatry & Neurology Psychiatry
DX: F33.3 Major depressive disorder, recurrent, severe with psychotic symptoms (principal); N17.9 Acute kidney failure, unspecified; F03.91 Unspecified dementia, unspecified severity, with behavioral disturbance; I10 Essential (primary) hypertension; Z79.82 Long term (current) use of aspirin; Z98.890 Other specified postprocedural states; Z79.899 Other long term (current) drug therapy; T39.395A Adverse effect of other nonsteroidal anti-inflammatory drugs [NSAID], initial encounter; Y92.009 Unspecified place in unspecified non-institutional (private) residence as the place of occurrence of the external cause; E87.6 Hypokalemia; M19.90 Unspecified osteoarthritis, unspecified site; F09 Unspecified mental disorder due to known physiological condition; G89.29 Other chronic pain; G62.9 Polyneuropathy, unspecified; K59.00 Constipation, unspecified
CPT/HCPCS: 36415; 70450-TC; 73020; 73090-TC; 73502; 80048-TC; 80061-TC; 80076-TC; 80305; 81000-TC; 82565-TC; 85025-TC; 87081-TC; G0480; J2060; J3490

== ENCOUNTER 2018-07-10 17:49 | Inpatient (IN) | payer MEDICARE ==
[~2018-07-10] VITALS: Ht 157.5 cm; Wt 68.2 kg
--- NOTE | 2018-07-10 17:49 | NUR ---
PT [id number] FRM HOME FOR WORSENING SOB AND GENERALIZED WEAKNESS PER REPORT, ON AUGMENTIN PRESCRIBED BY PMD, PT IS AAOX3, NOTED SHORTNESS OF BREATH, HOOKED TO MONITOR, KEPT RESTED AND COMFORTABLE, WILL CONTINUE TO MONITOR.
--- NOTE | 2018-07-10 18:10 | NUR ---
SEEN AND EXAMINED BY DR. BURROWS.
--- NOTE | 2018-07-10 18:20 | NUR ---
IV LINE ESTABLISHED, LABS DRAWNED AND SENT TO LAB.
[2018-07-10 18:43] LABS: BASOPHILS % (AUTO) 0.5 % (0.0-2.0); EOSINOPHILS % (AUTO) 2.1 % (0.0-6.0); HEMATOCRIT 41 % (33-45); HEMOGLOBIN 13.4 g/dL (11.5-14.8); LYMPHOCYTES # (AUTO) 0.5 /CMM (0.8-4.8); LYMPHOCYTES % (AUTO) 12.3 % (20.0-44.0); MEAN CORPUSCULAR HGB CONC 33 g/dl (31.0-36.0); MEAN CORPUSCULAR VOLUME 83 fL (82-100); MONOCYTES # (AUTO) 0.4 /CMM (0.1-1.30); MONOCYTES % (AUTO) 9.2 % (2.0-12.0); NEUTROPHILS # (AUTO) 3.2 /CMM (1.8-8.9); NEUTROPHILS % (AUTO) 75.9 % (43.0-81.0); PLATELET COUNT (AUTO) 104 /CMM (150-450); RED BLOOD CELL COUNT(AUTO) 4.96 MIL/uL (4.0-5.2); WHITE BLOOD COUNT (AUTO) 4.3 K/uL (4.3-11.0)
[2018-07-10 19:05] LABS: ALANINE AMINOTRANSFERASE 20 U/L (12-78); ALBUMIN 3.7 g/dL (3.4-5.0); ALKALINE PHOSPHATASE 66 U/L (46-116); ASPARTATE AMINOTRANSFERASE 27 U/L (15-37); B-TYPE NATRIURETIC PEPTIDE 267 PG/ML (0-125); BILIRUBIN,DIRECT 0.1 mg/dL (0.0-0.2); BILIRUBIN,TOTAL 0.4 mg/dL (0.2-1.0); CALCIUM, SERUM 9.1 mg/dL (8.5-10.1); CARBON DIOXIDE 27 mmol/L (21-32); CHLORIDE 98 mmol/L (98-107); CREATININE 1.2 mg/dL (0.6-1.3); GLUCOSE 131 mg/dL (74-106); SODIUM SERUM 137 mmol/L (136-145); TOTAL PROTEIN, SERUM 8.8 g/dL (6.4-8.2); UREA NITROGEN, BLOOD 19 mg/dL (7-18)
[2018-07-10 19:06] LABS: POTASSIUM 2.6 mmol/L (3.5-5.1)
--- NOTE | 2018-07-10 19:14 | NUR ---
REPORT GIVEN TO NELL RDZ FOR ARGELIA.
[2018-07-10] MEDS ORDERED: POTASSIUM CHLORIDE 20 MEQ TAB.PRT.SR PO ONE ×2 (19:15→19:30)
--- NOTE | 2018-07-10 19:54 | NUR ---
MARIKA WAS CALLED. WAS PAGED
--- NOTE | 2018-07-10 19:55 | NUR ---
TELE BED 326-2 WAS GIVEN
--- NOTE | 2018-07-10 20:03 | NUR ---
REPORT GIVEN TO TAPAN CAMEJO FOF ARGELIA.
[2018-07-10 20:20] VITALS: BP 154/93
--- NOTE | 2018-07-10 20:20 | NUR ---
TELE/RN NOTE RECEIVED PT FROM ER VIA LOVE WITH FAMILY MEMBER AT BEDSIDE. PT A/O 1-2. PT DENIES SOB AT THIS TIME. RESPIRATION REGULAR AND UNLABORED. PT DENIES PAIN AT THIS TIME. SAFETY MEASURES IN PLACE, BED IN LOW AND LOCKED POSITION WITH SIDE RAILS UP X2. CALL LIGHT WITHIN REACH. WILL CONTINUE TO MONITOR.
[2018-07-10 21:50] LABS: BAND % (MANUAL) 3 % (0.0-5.0); LYMPHOCYTES % (MANUAL) 9 % (16-48); MONOCYTES % (MANUAL) 6 % (0-11.0); NEUTROPHILS % (MANUAL) 82 (42-76)
[2018-07-10] MEDS ORDERED: ZOLPIDEM TARTRATE 5 MG TABLET PO PRN (22:30)
[2018-07-10] MEDS ORDERED: ONDANSETRON HCL/PF 4 MG/2 ML VIAL IVP PRN (22:30)
[2018-07-10] MEDS ORDERED: MAGNESIUM HYDROXIDE 30 ML UDC PO PRN (22:30)
[2018-07-10] MEDS ORDERED: IV NS 0.9% 1,000 ML IV PRN (22:30)
[2018-07-10] MEDS ORDERED: Z GUARD REMEDY 2 OZ OINT TP PRN (22:30)
[2018-07-10] MEDS ORDERED: MAG HYDROX/AL HYDROX/SIMETH 30 ML UDC PO PRN (22:30)
[2018-07-10] MEDS ORDERED: IV NS 0.9% 100 ML IV SCH (23:00)
[2018-07-10] MEDS: ALBUTEROL FS 2.5 MG/3 ML VIAL.NEB NEB SCH (23:30)
[2018-07-10 23:32] LABS: MAGNESIUM 1.4 mg/dL (1.8-2.4)
[2018-07-10] MEDS: ENOXAPARIN SODIUM 40 MG/0.4 ML DISP.SYRIN SQ SCH (23:36)
[2018-07-10] MEDS: HYDROCODONE/APAP 5/325MG 1 EACH TABLET PO PRN (23:46)
[2018-07-10] MEDS: hydrALAZINE HCL 25 MG TABLET PO PRN (23:50)
[2018-07-11] VITALS: BP 181/104
[2018-07-11] MEDS ORDERED: PIPERACILLIN /TAZOBACTAM 4.5 G in IV D5W 50 ML IV SCH ×2
[2018-07-11] MEDS: IV NS 0.9% 1,000 ML IV PRN ×2 (00:35→17:23)
[2018-07-11] MEDS ORDERED: POTASSIUM CHLORIDE 20 MEQ TAB.PRT.SR PO ONE ×2 (01:00→11:00)
[2018-07-11] MEDS ORDERED: Magnesium 1GM/D5W 100ML PREMIX 100 ML IV ONE (01:03)
[2018-07-11] MEDS ORDERED: Magnesium 1GM/D5W 100ML PREMIX 300 ML IV ONE (01:04)
[2018-07-11] MEDS ORDERED: PIPERACILLIN /TAZOBACTAM 3.375 G VIAL IV ONE (01:05)
[2018-07-11] MEDS: Magnesium 1GM/D5W 100ML PREMIX 100 ML IV SCH ×4 (01:43→04:52)
[2018-07-11] MEDS ORDERED: AMLODIPINE BESYLATE 5 MG TABLET PO ONE (02:00)
[2018-07-11 04:00] VITALS: BP 108/70
[2018-07-11] MEDS: PIPERACILLIN /TAZOBACTAM 3.375 G in IV NS 0.9% 50 ML IV SCH ×2 (04:59→12:34)
[2018-07-11 06:29] LABS: APPEARANCE,URINE CLEAR (CLEAR); BILIRUBIN,URINE NEGATIVE (NEGATIVE); BLOOD, URINE NEGATIVE Ery/uL (NEGATIVE); COLOR,URINE YELLOW (YELLOW); KETONES,URINE NEGATIVE (NEGATIVE); LEUKOCYTE ESTERASE ,URINE NEGATIVE (NEGATIVE); NITRITE, URINE POSITIVE (NEGATIVE); PROTEIN,URINE NEGATIVE (NEGATIVE); UGLUCOSE NEGATIVE (NEGATIVE); UROBILINOGEN,URINE 0.2 EU/dL (0.2)
--- NOTE | 2018-07-11 07:06 | NUR ---
TELE/RN NOTE PT IN BED SLEEPING BUT EASILY AWOKEN VERBALLY OR BY TOUCH. PT A/O 1-2. PT ON RA TOLERATING WELL AT 94%. RESPIRATION REGULAR AND UNLABORED WITH NO S/S OF ACUTE DISTRESS OR SOB THROUGHOUT SHIFT. PT COMPLAINANT WITH CARE. PT DENIES PAIN AT THIS TIME. SAFETY MEASURES IN PLACE, BED IN LOW AND LOCKED POSITION WITH SIDE RAILS UP X2. CALL LIGHT WITHIN REACH. WILL ENDORSE TO ONCOMING NURSE FOR ARGELIA.
[2018-07-11 07:17] LABS: BACTERIA,URINE Few /HPF (None Seen); RBC,URINE NONE SEEN /HPF (0-2); SQUAMOUS EPITHELIAL CELL,UR Few /HPF (None Seen); WBC,URINE 0-2 /HPF (0-3)
[2018-07-11] MEDS: ALBUTEROL FS 2.5 MG/3 ML VIAL.NEB NEB SCH ×4 (07:35→20:01)
--- NOTE | 2018-07-11 07:52 | NUR ---
CUTTING AND PRINTING MACHINE OPERATOR OPENING NOTES RECEIVED PT IN BED HOB ELEVATED. EASILY AWAKEN, A/O X 1-2. TOLERATING RA, WITH NO CUTE RESPIRATORY DISTRESS NOTED. DENIES PAIN. PIV TO RIGHT HAND WITH 20G, FLUSHED WITH NS, INTACT AND PATENT. IVF TO LEFT WRIST 22G WITH NS AT 100ML/HR, INFUSING WELL. CALL LIGHT KEPT WITHIN REACH. WILL CONTINUE PLAN OF CARE.
[2018-07-11 08:00] VITALS: BP 161/87
[2018-07-11] MEDS: ASPIRIN 81 MG TAB.CHEW PO SCH (08:14)
[2018-07-11] MEDS: ACETAMINOPHEN 325 MG TABLET PO PRN ×2 (08:14→16:27)
[2018-07-11] MEDS: GABAPENTIN 300 MG CAPSULE PO SCH ×4 (08:14→21:07)
[2018-07-11] MEDS: VENLAFAXINE XR 75 MG CAP.SR.24H PO SCH (08:14)
[2018-07-11] MEDS: DOCUSATE SODIUM 100 MG CAPSULE PO SCH ×2 (08:14→16:27)
[2018-07-11] MEDS: hydrALAZINE HCL 25 MG TABLET PO PRN (08:15)
[2018-07-11 10:06] LABS: BASOPHILS % (AUTO) 0.8 % (0.0-2.0); EOSINOPHILS % (AUTO) 1.5 % (0.0-6.0); HEMATOCRIT 39 % (33-45); HEMOGLOBIN 12.9 g/dL (11.5-14.8); LYMPHOCYTES # (AUTO) 0.7 /CMM (0.8-4.8); LYMPHOCYTES % (AUTO) 21.7 % (20.0-44.0); MEAN CORPUSCULAR HGB CONC 33 g/dl (31.0-36.0); MEAN CORPUSCULAR VOLUME 82 fL (82-100); MONOCYTES # (AUTO) 0.4 /CMM (0.1-1.30); MONOCYTES % (AUTO) 11.4 % (2.0-12.0); NEUTROPHILS # (AUTO) 2.1 /CMM (1.8-8.9); NEUTROPHILS % (AUTO) 64.6 % (43.0-81.0); RED BLOOD CELL COUNT(AUTO) 4.76 MIL/uL (4.0-5.2); WHITE BLOOD COUNT (AUTO) 3.3 K/uL (4.3-11.0)
[2018-07-11 10:23] LABS: CALCIUM, SERUM 8.5 mg/dL (8.5-10.1); CARBON DIOXIDE 25 mmol/L (21-32); CHLORIDE 104 mmol/L (98-107); GLUCOSE 113 mg/dL (74-106); MAGNESIUM 2.8 mg/dL (1.8-2.4); PHOSPHORUS 2.5 mg/dL (2.5-4.9); SODIUM SERUM 140 mmol/L (136-145); UREA NITROGEN, BLOOD 15 mg/dL (7-18)
[2018-07-11 11:50] VITALS: BP 118/66
[2018-07-11 11:54] LABS: BAND % (MANUAL) 1 % (0.0-5.0); LYMPHOCYTES % (MANUAL) 23 % (16-48); MONOCYTES % (MANUAL) 8 % (0-11.0); NEUTROPHILS % (MANUAL) 68 (42-76)
[2018-07-11 12:02] LABS: PLATELET COUNT (AUTO) 104 /CMM (150-450)
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
[2018-07-11] MEDS: ENSURE ENLIVE 237 ML LIQUID (VANILLA) PO SCH ×2 (14:38→16:27)
--- NOTE | 2018-07-11 15:14 | NUR ---
LADLE CAR OPERATOR NOTES PT'S CONCERN ABOUT SIGNS AND SYMPTOMS OF STROKE THAT HE READ AROUND THE UNIT. STATING UNABLE TO TALK, UNABLE TO WALK, WEAKNESS WAS THE PT'S SYMPTOMS LAST NIGHT. EXPLAINED TO THAT ELECTROLYTES SUCH MAGNESIUM AND POTASSIUM WAS REPLACED TODAY. NEURO ASSESSMENT WAS DONE. NO DRIFTS, NO DIFFICULTY SWALLOWING AND VERBAL. PHYSICAL THERAPIST EVALUATED THE PT EARLIER AND OKAY TO AMBULATE, [id number]. CN AWARE. OVERHEAD CLEANER DT MADE AWARE OF 'S CONCERNS AND ORDERED CT OF HEAD. PT MADE AWARE OF THE PROCEDURE.
[2018-07-11 15:54] VITALS: BP 107/65
[2018-07-11] MEDS: MELOXICAM 7.5 MG TABLET PO SCH (17:17)
--- NOTE | 2018-07-11 18:39 | NUR ---
BIT TRIPOLER CLOSING NOTES PT IN BED RESTING, TOLERATING RA WITH NO SOB NOTED. DENIES PAIN AT THIS MOMENT. A/O 3-4. AMBULATORY WITH [id number]. IVF NS AT 100ML/HR TO LEFT WRIST, INFUSING WELL. PIV TO RIGHT HAND, FLUSHED WITH NS, INTACT AND PATENT. ON TELE MONITORING SR, HR 72. ALL NEEDS AND CARE PROVIDED. CALL LIGHT KEPT WITHIN REACH. CT OF HEAD RESULT RELAYED TO CUSHION STUFFER MARK, AWAITING FOR RESPONSE. WILL ENDORSE TO NEXT SHIFT NURSE FOR ARGELIA.
--- NOTE | 2018-07-11 19:30 | NUR ---
LABORATORY ENGINEER INITIAL NOTES Patient in bed, awake. Sinus rhythm in the tele monitor, stable oxygen saturation on RA. IVF infusing at 100 ml/hr. Will cont to monitor. Safety measure explained, verbalized understanding.
[2018-07-11 20:00] VITALS: BP 132/68
[2018-07-11] MEDS ORDERED: CEFTRIAXONE 1 G VIAL ONE (20:19)
[2018-07-11] MEDS: AZITHROMYCIN 250 MG TABLET PO SCH (20:30)
[2018-07-11] MEDS: CEFTRIAXONE 1 G in IV D5W 50 ML IV SCH (20:37)
[2018-07-11] MEDS: HYDROCODONE/APAP 5/325MG 1 EACH TABLET PO PRN (21:03)
[2018-07-11] MEDS: ATORVASTATIN 40 MG TABLET PO SCH (21:07)
[2018-07-11] MEDS: MIRTAZAPINE 15 MG TABLET PO SCH (21:07)
[2018-07-11] MEDS: POLYETHYLENE GLYCOL 3350 17 GM POWD.PACK PO SCH (21:07)
[2018-07-11] MEDS: MEMANTINE HCL 5 MG TABLET PO SCH (21:08)
[2018-07-11] MEDS: ENOXAPARIN SODIUM 40 MG/0.4 ML DISP.SYRIN SQ SCH (21:47)
[2018-07-12] VITALS (8 sets, daily range): BP systolic 124–152; BP diastolic 59–91
[2018-07-12] MEDS: IV NS 0.9% 1,000 ML IV PRN ×2 (03:19→14:24)
--- NOTE | 2018-07-12 06:12 | NUR ---
GROUND NUCLEAR WEAPONS ASSEMBLY OFFICER CLOSING NOTES Patient in bed, stable oxygen saturation on RA, 98%. Sinus rhythm in the tele monitor. Nebulizer as scheduled per RT. IVF infusing, maintained at 100ml/hr. On IV/PO antibiotic, had BM this shift, no diarrhea, afebrile. PRN [place] for headache with relief. Slept well. Maintained safety. Xray chest today. Will endorse to oncoming RN.
[2018-07-12 06:42] LABS: CALCIUM, SERUM 8.5 mg/dL (8.5-10.1); CARBON DIOXIDE 26 mmol/L (21-32); CHLORIDE 108 mmol/L (98-107); CREATININE 1.2 mg/dL (0.6-1.3); GLUCOSE 92 mg/dL (74-106); MAGNESIUM 2.2 mg/dL (1.8-2.4); POTASSIUM 3.3 mmol/L (3.5-5.1); SODIUM SERUM 145 mmol/L (136-145); UREA NITROGEN, BLOOD 18 mg/dL (7-18)
[2018-07-12 06:46] LABS: BASOPHILS % (AUTO) 0.9 % (0.0-2.0); EOSINOPHILS % (AUTO) 5.4 % (0.0-6.0); HEMATOCRIT 38 % (33-45); HEMOGLOBIN 12.3 g/dL (11.5-14.8); LYMPHOCYTES # (AUTO) 0.8 /CMM (0.8-4.8); LYMPHOCYTES % (AUTO) 34.8 % (20.0-44.0); MEAN CORPUSCULAR HGB CONC 33 g/dl (31.0-36.0); MEAN CORPUSCULAR VOLUME 83 fL (82-100); MONOCYTES # (AUTO) 0.3 /CMM (0.1-1.30); NEUTROPHILS # (AUTO) 1.1 /CMM (1.8-8.9); NEUTROPHILS % (AUTO) 47.9 % (43.0-81.0); PLATELET COUNT (AUTO) 98 /CMM (150-450); RED BLOOD CELL COUNT(AUTO) 4.56 MIL/uL (4.0-5.2); WHITE BLOOD COUNT (AUTO) 2.4 K/uL (4.3-11.0)
[2018-07-12] MEDS: ALBUTEROL FS 2.5 MG/3 ML VIAL.NEB NEB SCH ×4 (07:39→20:20)
--- NOTE | 2018-07-12 07:51 | NUR ---
MS RN OPENING NOTES RECEIVED PT IN BED, EASILY AWAKEN. A/O X 3-4. DENIES PAIN AT THIS MOMENT. TOLERATING RA, WITH NO SOB NOTED. IVF OF NS AT 100 ML/HR TO RIGHT HAND G20, INTACT AND INFUSING WELL. SL TO LEFT WRIST, FLUSHED WITH NS, INTACT AND PATENT. CALL LIGHT AND FLUIDS KEPT WITHIN REACH. BED IN LOWEST, LOCKED POSITION WITH SR X2. WILL CONTINUE PLAN OF CARE. Addendum: 07/12/18 at 0758 by ABEL MARIO RN DIETITIAN THERAPEUTIC OPENING NOTES PT ON TELEMONITORING, SR WITH HR OF 88.
[2018-07-12 08:19] LABS: BAND % (MANUAL) 2 % (0.0-5.0); EOSINOPHILS % (MANUAL) 2 % (0-4); LYMPHOCYTES % (MANUAL) 40 % (16-48); MONOCYTES % (MANUAL) 8 % (0-11.0); NEUTROPHILS % (MANUAL) 48 (42-76)
[2018-07-12] MEDS: DOCUSATE SODIUM 100 MG CAPSULE PO SCH ×2 (08:32→16:25)
[2018-07-12] MEDS: VENLAFAXINE XR 75 MG CAP.SR.24H PO SCH (08:32)
[2018-07-12] MEDS: ASPIRIN 81 MG TAB.CHEW PO SCH (08:32)
[2018-07-12] MEDS: GABAPENTIN 300 MG CAPSULE PO SCH ×4 (08:33→22:07)
[2018-07-12] MEDS: ENSURE ENLIVE 237 ML LIQUID (VANILLA) PO SCH ×3 (08:33→17:19)
[2018-07-12] MEDS: LACTOBACILLUS RHAMNOSUS GG 1 EACH CAP.SPRINK PO SCH ×2 (09:55→16:26)
[2018-07-12] MEDS ORDERED: POTASSIUM CHLORIDE 20 MEQ TAB.PRT.SR PO SCH (10:00)
--- NOTE | 2018-07-12 11:45 | NUR ---
E COMMERCE RETAILER NOTES RN FOUND POSITIVE INFLUENZA A (+)/ iNFLUENZA b (-) RESULT. ACKNOWLEDGED ORDER TO START TAMIFLU BID X 5DAYS, WILL GIVE INITIAL DOSE AT 1700. INITIATED AIRBORNE ISOLATION. FAMILY PRESENT AT BEDSIDE AND MADE AWARE. TELEMONITORING SR, HR 84.
[2018-07-12] MEDS: OSELTAMIVIR PHOSPHATE 75 MG CAPSULE PO SCH (16:26)
[2018-07-12] MEDS: MELOXICAM 7.5 MG TABLET PO SCH (17:05)
[2018-07-12] MEDS: CEFTRIAXONE 1 G in IV D5W 50 ML IV SCH (18:03)
[2018-07-12] MEDS: AZITHROMYCIN 250 MG TABLET PO SCH (18:03)
--- NOTE | 2018-07-12 18:49 | NUR ---
LARD REFINER CLOSING NOTES PT RESTING IN BED. AWAKE, A/O X2-3. TOLERATING RA, WITHOUT SOB, O2 SATURATION OF 99-100%. DENIES PAIN AT THIS MOMENT. PIV TO RIGHT WRIST G22 SL, FLUSHED WITH NS INTACT AND OPERATIONAL. IVF NS AT 100ML/HR TO RIGHT HAND, INTACT AND INFUSING WELL. ON TELEMONITORING SR, HR OF 87. ALL NEEDS AND CARE PROVIDED. FLUID AND CALL LIGHT KEPT WITHIN REACH. PT'S BED IN LOWEST, LOCKED POSITION WITH SR X2. WILL ENDORSE TO INCOMING LEATHER STAMPER NURSE FOR ARGELIA.
--- NOTE | 2018-07-12 19:20 | NUR ---
TEACHER KINDERGARTEN NOTES FAMILY SON AND PRESENT BEDSIDE AND WANTED TO TALK TO A DOCTOR TO EXPLAIN MORE DETAILED FOR CXRAY AND CT HEAD RESULTS. CALLED [employer] AND LEFT MESSAGE. ENDORSE TO INCOMING NURSE/DENILSON WELL REGARDING FAMILY CONCERNS.
--- NOTE | 2018-07-12 19:25 | NUR ---
HARDWARE DESIGN ENGINEER NOTE RECEIVED PT IN STABLE CONDITION A&O X3 WITH PERIODS OF FORGETFULNESS. SON CURRENTLY AT BEDSIDE. NO SIGNS OF SOB OR DISTRESS, NO C/O PAIN. AIRBORNE PRECAUTIONS IN PLACE. ALL CURRENT NEEDS MET. SAFETY PRECAUTIONS IN PLACE: BED LOW, LOCKED, UPPER RAILS UP, AND CALL LIGHT WITHIN REACH. WILL CONT TO MONITOR.
[2018-07-12] MEDS: ENOXAPARIN SODIUM 40 MG/0.4 ML DISP.SYRIN SQ SCH (22:06)
[2018-07-12] MEDS: ATORVASTATIN 40 MG TABLET PO SCH (22:06)
[2018-07-12] MEDS: MEMANTINE HCL 5 MG TABLET PO SCH (22:06)
[2018-07-12] MEDS: POLYETHYLENE GLYCOL 3350 17 GM POWD.PACK PO SCH (22:06)
[2018-07-12] MEDS: MIRTAZAPINE 15 MG TABLET PO SCH (22:07)
[2018-07-13 00:06] VITALS: BP 139/72
[2018-07-13] MEDS: IV NS 0.9% 1,000 ML IV PRN ×2 (04:10→17:01)
[2018-07-13 05:08] VITALS: BP 164/97
--- NOTE | 2018-07-13 06:40 | NUR ---
AQUATIC CENTRE MANAGER NOTE PT IN STABLE CONDITION A&O X3 WITH PERIODS OF FORGETFULNESS. NO SIGNS OF SOB OR DISTRESS, NO C/O PAIN. AIRBORNE PRECAUTIONS IN PLACE. ALL CURRENT NEEDS MET. SAFETY PRECAUTIONS IN PLACE: BED LOW, LOCKED, UPPER RAILS UP, AND CALL LIGHT WITHIN REACH. WILL CONT TO MONITOR AND ENDORSE TO NEXT SHIFT FOR ARGELIA.
[2018-07-13 06:58] VITALS: BP 175/97
[2018-07-13 07:00] LABS: CALCIUM, SERUM 8.9 mg/dL (8.5-10.1); CARBON DIOXIDE 30 mmol/L (21-32); CHLORIDE 107 mmol/L (98-107); GLUCOSE 100 mg/dL (74-106); POTASSIUM 3.2 mmol/L (3.5-5.1); SODIUM SERUM 145 mmol/L (136-145); UREA NITROGEN, BLOOD 12 mg/dL (7-18)
[2018-07-13] MEDS: hydrALAZINE HCL 25 MG TABLET PO PRN ×2 (07:01→23:50)
--- NOTE | 2018-07-13 07:02 | NUR ---
COLD WATER MACHINE OPERATOR NOTE PRN HYRALAZINE GIVEN FOR BP OF 175/97. WILL ENDORSE TO NEXT SHIFT FOR ARGELIA.
[2018-07-13 07:08] LABS: BASOPHILS % (AUTO) 0.6 % (0.0-2.0); EOSINOPHILS % (AUTO) 3.8 % (0.0-6.0); HEMATOCRIT 37 % (33-45); HEMOGLOBIN 12.2 g/dL (11.5-14.8); LYMPHOCYTES % (AUTO) 41.7 % (20.0-44.0); MEAN CORPUSCULAR HGB CONC 33 g/dl (31.0-36.0); MEAN CORPUSCULAR VOLUME 83 fL (82-100); MONOCYTES # (AUTO) 0.2 /CMM (0.1-1.30); NEUTROPHILS # (AUTO) 1.1 /CMM (1.8-8.9); NEUTROPHILS % (AUTO) 43.9 % (43.0-81.0); PLATELET COUNT (AUTO) 74 /CMM (150-450); RED BLOOD CELL COUNT(AUTO) 4.53 MIL/uL (4.0-5.2); WHITE BLOOD COUNT (AUTO) 2.4 K/uL (4.3-11.0)
[2018-07-13] MEDS: ALBUTEROL FS 2.5 MG/3 ML VIAL.NEB NEB SCH ×4 (07:22→20:09)
--- NOTE | 2018-07-13 07:30 | NUR ---
MS/RN Patient received Patient received from milling machine operator. Sleeping soundly, appears in no distress or pain. Call light within reach, safety measures in place, will continue to monitor and ensure safety.
[2018-07-13 07:52] LABS: LYMPHOCYTES % (MANUAL) 41 % (16-48); MONOCYTES % (MANUAL) 12 % (0-11.0); NEUTROPHILS % (MANUAL) 47 (42-76)
[2018-07-13 08:00] VITALS: BP 128/67
[2018-07-13] MEDS: GABAPENTIN 300 MG CAPSULE PO SCH ×4 (08:34→21:04)
[2018-07-13] MEDS: ASPIRIN 81 MG TAB.CHEW PO SCH (08:34)
[2018-07-13] MEDS: DOCUSATE SODIUM 100 MG CAPSULE PO SCH ×2 (08:34→17:01)
[2018-07-13] MEDS: LACTOBACILLUS RHAMNOSUS GG 1 EACH CAP.SPRINK PO SCH ×2 (08:34→17:01)
[2018-07-13] MEDS: OSELTAMIVIR PHOSPHATE 75 MG CAPSULE PO SCH ×2 (08:35→17:01)
[2018-07-13] MEDS: VENLAFAXINE XR 75 MG CAP.SR.24H PO SCH (08:35)
[2018-07-13] MEDS: ENSURE ENLIVE 237 ML LIQUID (VANILLA) PO SCH ×3 (08:37→17:05)
[2018-07-13] MEDS ORDERED: POTASSIUM CHLORIDE 20 MEQ TAB.PRT.SR PO ONE (09:00)
--- NOTE | 2018-07-13 09:10 | NUR ---
MS/RN Labs Morning labs reviewed: -potassium 3.2, replaced with 40meq oral.
--- NOTE | 2018-07-13 10:16 | NUR ---
MS/RN S/B Dr Rodriguez Seen by Dr Rodriguez - tele monitoring discontinued.
[2018-07-13] MEDS ORDERED: LEVO500T75 PO (10:17)
[2018-07-13] MEDS ORDERED: OSEL75CA PO (10:17)
[2018-07-13] MEDS ORDERED: LEVOFLOXACIN (500MG) 500 MG TABLET PO ONE (12:00)
--- NOTE | 2018-07-13 12:28 | NUR ---
MS/RN S/B ID Seen by ID - IVAB changed to oral (levaquin 250mg PO every 24hrs).
[2018-07-13] MEDS ORDERED: ALBUTEROL FS 2.5 MG/0.5 ML VIAL.NEB NEB PRN (12:30)
[2018-07-13 16:00] VITALS: BP_SYST 148; BP_DIAS 79; BP_DIAS 89
[2018-07-13] MEDS: MELOXICAM 7.5 MG TABLET PO SCH (17:01)
--- NOTE | 2018-07-13 18:20 | NUR ---
MS/RN End note Patient remains in stable condition, denies pain at this time. at bedside and updated as to plan of care. Will endorse to fast food shift lead.
[2018-07-13 20:00] VITALS: BP_SYST 102; BP_SYST 140; BP_DIAS 58; BP_DIAS 96
--- NOTE | 2018-07-13 20:00 | NUR ---
MS RN NOTES RECEIVED PATIENT AWAKE IN BED WITH NO DISTRESS NOTED. AT BEDSIDE. CALL LIGHT WITHIN REACH. PERIPHERAL LINE INTACT AND PATENT. NO C/O PAIN OR DISCOMFORT. ENCOURAGED USE OF CALL LIGHT FOR ASSISTANCE AND VERBALIZED GOOD UNDERSTANDING. ROOM FREE OF CLUTTER AND ALL BELONGINGS KEPT NEAR BEDSIDE. BED IN LOW LOCK SETTING. WILL CONTINUE TO MONITOR .
[2018-07-13] MEDS: POLYETHYLENE GLYCOL 3350 17 GM POWD.PACK PO SCH (21:05)
[2018-07-13] MEDS: ATORVASTATIN 40 MG TABLET PO SCH (21:05)
[2018-07-13] MEDS: MEMANTINE HCL 5 MG TABLET PO SCH (21:05)
[2018-07-13] MEDS: MIRTAZAPINE 15 MG TABLET PO SCH (21:05)
[2018-07-13] MEDS: ENOXAPARIN SODIUM 40 MG/0.4 ML DISP.SYRIN SQ SCH (22:30)
[2018-07-13] MEDS: ACETAMINOPHEN 325 MG TABLET PO PRN (23:51)
[2018-07-14] MEDS: IV NS 0.9% 1,000 ML IV PRN (06:29)
--- NOTE | 2018-07-14 06:56 | NUR ---
MS RN NOTES PATIENT ASLEEP IN BED WITH NO DISTRESS NOTED. CALL LIGHT WITHIN REACH. BED ALARM ON AND FUNCTIONING PROPERLY. BED IN LOW LOCK SETTING. ALL BELONGINGS KEPT NEAR BEDSIDE. ALL DUE MEDS GIVEN ORDERED WITH NO ASE NOTED. STAT HEAD CT UNREMARKABLE. NO FURTHER C/O PAIN OR DISCOMFORT. VITALS WNL. , MADELYN LILLY, MADE AWARE OF PATIENT'S ARGELIA AND VERBALIZED GOOD UNDERSTANDING. PER , WILL COME TODAY TO DISCUSS NEW POC. WILL ENDORSE TO ONCOMING SHIFT.
[2018-07-14] MEDS: ALBUTEROL FS 2.5 MG/3 ML VIAL.NEB NEB SCH ×2 (07:35→11:57)
[2018-07-14 08:00] VITALS: BP 132/86
--- NOTE | 2018-07-14 08:00 | NUR ---
m/s electrical service technician: initial assessment received pt in bed awake, a/ox2 with forgetfulness and disorientation to place and situation. pt wants to go home. s/p fall. neuro check wnl for self, pupils perrla. active rom performed to all ext's wnl. pt refused skin assessment. reality orientation provided prn. instructed to call for assistance. will monitor.
[2018-07-14] MEDS: LACTOBACILLUS RHAMNOSUS GG 1 EACH CAP.SPRINK PO SCH (08:53)
[2018-07-14] MEDS: GABAPENTIN 300 MG CAPSULE PO SCH (08:53)
[2018-07-14] MEDS: DOCUSATE SODIUM 100 MG CAPSULE PO SCH (08:53)
[2018-07-14] MEDS: OSELTAMIVIR PHOSPHATE 75 MG CAPSULE PO SCH (08:54)
[2018-07-14] MEDS: VENLAFAXINE XR 75 MG CAP.SR.24H PO SCH (08:54)
[2018-07-14] MEDS: ASPIRIN 81 MG TAB.CHEW PO SCH (08:54)
[2018-07-14] MEDS: ENSURE ENLIVE 237 ML LIQUID (VANILLA) PO SCH (08:56)
--- NOTE | 2018-07-14 09:00 | NUR ---
m/s end finder forming department: notes in at this time and wants her evaluate by the doctor, i was told he'll be here in the morning as stated. informed that dr. pleitez is assigned to her today and will see today. pt for d'c planning. will continue to monitor.
--- NOTE | 2018-07-14 10:00 | NUR ---
m/s lens mounter: notes assisted to bathroom and voided, pt refused full body assessment. pt remains forgetful. reality orientation provided prn. remains at bedside and anxiously waiting for md to come. left message to dr. pleitez. will continue to monitor.
[2018-07-14] MEDS: ACETAMINOPHEN 325 MG TABLET PO PRN (11:56)
[2018-07-14] MEDS ORDERED: LEVOFLOXACIN (250MG) 250 MG TABLET PO SCH (12:00)
--- NOTE | 2018-07-14 12:10 | NUR ---
m/s florist: md visit seen and examined by dr. pleitez and also spoke to at bedside. okay for discharge today, pt wants to go home and feels better. d'c instructions given to pt and at bedside and informed them that she needs to complete the tamiflu as prescribed and no need for antibiotic as stated, pt and verbalized understanding.
--- NOTE | 2018-07-14 12:30 | NUR ---
m/s technical artist: notes discharge instructions with prescription given to and verbalized understanding. prescription med teaching provided to pt and , verbalized understanding. h/l removed with tip intact with no bleeding, no redness, and no swelling noted. son arrived at this time and aware of d'c home today.
--- NOTE | 2018-07-14 12:50 | NUR ---
m/s transportation planning engineer: discharged discharged home accompanied by and son via private car in stable condition.
== END 2018-07-14 11:50 | disposition home health service (06) | DRG 871 ==
LOC: ER 17:52 → TELE 20:12 → MED 07-13 09:32
PROVIDERS: ADMIT Internal Medicine; ATTEND Nurse Practitioner Acute Care
DX: A41.9 Sepsis, unspecified organism (principal); J18.9 Pneumonia, unspecified organism; J10.00 Influenza due to other identified influenza virus with unspecified type of pneumonia; N39.0 Urinary tract infection, site not specified; E87.6 Hypokalemia; E83.42 Hypomagnesemia; E78.5 Hyperlipidemia, unspecified; J20.9 Acute bronchitis, unspecified; M19.90 Unspecified osteoarthritis, unspecified site; I11.9 Hypertensive heart disease without heart failure; K59.00 Constipation, unspecified; Z79.82 Long term (current) use of aspirin; Z79.899 Other long term (current) drug therapy; K21.9 Gastro-esophageal reflux disease without esophagitis; F01.50 Vascular dementia, unspecified severity, without behavioral disturbance, psychotic disturbance, mood disturbance, and anxiety
CPT/HCPCS: 36415; 70450-TC; 71045-TC; 80048-TC; 80076-TC; 81000-TC; 83605-TC; 83735-TC; 83880; 84100-TC; 85025-TC; 87040-TC; 87081-TC; 87086-TC; 87400; A4216; G0378; J0696; J1650; J2543; J3475; J7030; J7050; J7060

== ENCOUNTER 2021-01-31 01:44 | Emergency (ER) | payer MEDICARE ==
[~2021-01-31] VITALS: Ht 157.5 cm; Wt 68.0 kg
[~2021-01-31 01:44] MED LIST changes: +LEVO500T23 PO; +MIRT-90 PO; -MIRT15TA7 PO; +OSEL75CA PO
--- NOTE | 2021-01-31 01:49 | NUR ---
PT AAOX4. BIBRA 102 FROM HOME FOR C/O ABD PAIN, N/V FOR A FEW HOURS. PLACED IN A GOWN, ON MONITOR, AND PULSE OX. ER MD AT BEDSIDE FOR EVAL. AWAITING ORDERS.
[2021-01-31] MEDS ORDERED: ONDANSETRON HCL/PF 4 MG/2 ML VIAL ONE (02:12)
[2021-01-31] MEDS ORDERED: MORPHINE SULFATE INJ 4 MG/ML DISP.SYRIN ONE (02:12)
--- NOTE | 2021-01-31 02:14 | NUR ---
EMT AT BEDSIDE FOR EKG
[2021-01-31 02:19] LABS: BASOPHILS % (AUTO) 0.4 % (0.0-2.0); HEMATOCRIT 38 % (33-45); HEMOGLOBIN 12.4 g/dL (11.5-14.8); LYMPHOCYTES # (AUTO) 2.2 K/uL (0.8-4.8); LYMPHOCYTES % (AUTO) 27.9 % (20.0-44.0); MEAN CORPUSCULAR HGB CONC 32 g/dl (31.0-36.0); MEAN CORPUSCULAR VOLUME 82 fL (82-100); MONOCYTES # (AUTO) 0.5 K/uL (0.1-1.30); MONOCYTES % (AUTO) 6.9 % (2.0-12.0); NEUTROPHILS % (AUTO) 63.8 % (43.0-81.0); PLATELET COUNT (AUTO) 189 K/uL (150-450); RED BLOOD CELL COUNT(AUTO) 4.68 MIL/uL (4.0-5.2); WHITE BLOOD COUNT (AUTO) 7.9 K/uL (4.3-11.0)
--- NOTE | 2021-01-31 02:25 | NUR ---
ODIN PILLAI [phone]
[2021-01-31 02:29] LABS: CARBON DIOXIDE 25 mmol/L (21-32); CHLORIDE 99 mmol/L (98-107); SODIUM SERUM 139 mmol/L (136-145)
[2021-01-31] MEDS ORDERED: IV NS 0.9% 500 ML BAG IV ONE (02:30)
[2021-01-31] MEDS ORDERED: ONDANSETRON HCL/PF 4 MG/2 ML VIAL IVP ONE (02:30)
[2021-01-31] MEDS ORDERED: MORPHINE SULFATE INJ 2 MG/ML DISP.SYRIN IV ONE (02:30)
[2021-01-31 02:35] LABS: ALANINE AMINOTRANSFERASE 29 U/L (12-78); ALBUMIN 3.9 g/dL (3.4-5.0); ALKALINE PHOSPHATASE 105 U/L (46-116); ASPARTATE AMINOTRANSFERASE 34 U/L (15-37); BILIRUBIN,DIRECT 0.1 mg/dL (0.0-0.2); BILIRUBIN,TOTAL 0.4 mg/dL (0.2-1.0); LIPASE 125 U/L (73-393)
[2021-01-31 03:00] LABS: CALCIUM, SERUM 10.3 mg/dL (8.5-10.1); CREATININE 2.2 mg/dL (0.6-1.3); GLUCOSE 133 mg/dL (74-106); POTASSIUM 3.2 mmol/L (3.5-5.1); UREA NITROGEN, BLOOD 32 mg/dL (7-18)
--- NOTE | 2021-01-31 03:00 | NUR ---
pt was asked for urine sample and was assisted w/ a bed byrd. will follow up
--- NOTE | 2021-01-31 03:40 | NUR ---
urine collected and sent to lab.
[2021-01-31 03:59] LABS: COLOR,URINE YELLOW (YELLOW); PROTEIN,URINE NEGATIVE (NEGATIVE); UGLUCOSE NEGATIVE (NEGATIVE)
[2021-01-31 04:00] LABS: BILIRUBIN,URINE NEGATIVE (NEGATIVE); LEUKOCYTE ESTERASE ,URINE NEGATIVE (NEGATIVE); NITRITE, URINE NEGATIVE (NEGATIVE); UROBILINOGEN,URINE 0.2 EU/dL (0.2)
[2021-01-31] MEDS ORDERED: DOCU-141 PO (05:42)
[2021-01-31] MEDS ORDERED: POLY17PO4 PO (05:42)
--- NOTE | 2021-01-31 06:11 | NUR ---
Patient discharged to home in stable condition. Written and verbal after care instructions given. Patient verbalizes understanding of instruction.
[2021-01-31 06:12] VITALS: BP 134/87
== END 2021-01-31 06:12 | disposition home or self-care (01) ==
LOC: ER 01:45
DX: K59.00 Constipation, unspecified (principal); R91.8 Other nonspecific abnormal finding of lung field; Z20.822 Contact with and (suspected) exposure to COVID-19; R94.31 Abnormal electrocardiogram [ECG] [EKG]; F03.90 Unspecified dementia, unspecified severity, without behavioral disturbance, psychotic disturbance, mood disturbance, and anxiety; I10 Essential (primary) hypertension; R11.2 Nausea with vomiting, unspecified; Z79.899 Other long term (current) drug therapy
CPT/HCPCS: 36415; 71045; 74176; 80048; 80076; 81003; 83690; 84484; 85025; 85730; 87426; 93005; 96361; 96374; 96375; 99285; J2270; J2405; J7040; C9803

== ENCOUNTER 2021-02-08 00:08 | Inpatient (IN) | payer MEDICARE ==
[~2021-02-08] VITALS: Ht 160 cm; Wt 61.2 kg
[~2021-02-08 00:08] MED LIST changes: +DOCU-141 PO; +POLY17PO4 PO
--- NOTE | 2021-02-08 00:17 | NUR ---
ABIGAIL, SON: [phone] , MADELYN: [phone]
--- NOTE | 2021-02-08 00:28 | NUR ---
URINE COLLLECTED AND SENT TO THE LAB.
[2021-02-08] MEDS ORDERED: MORPHINE SULFATE INJ 2 MG/ML DISP.SYRIN ONE (00:29)
[2021-02-08] MEDS ORDERED: ONDANSETRON HCL/PF 4 MG/2 ML VIAL ONE (00:29)
[2021-02-08] MEDS ORDERED: IV NS 0.9% 1,000 ML BAG IV ONE (00:30)
[2021-02-08] MEDS ORDERED: ONDANSETRON HCL/PF 4 MG/2 ML VIAL IV ONE (00:30)
[2021-02-08] MEDS ORDERED: MORPHINE SULFATE INJ 2 MG/ML DISP.SYRIN IV ONE (00:30)
--- NOTE | 2021-02-08 00:42 | NUR ---
DR JAUREGUI ON THE PHONE W/ DR CARABALLO
[2021-02-08 00:55] LABS: BASOPHILS % (AUTO) 0.4 % (0.0-2.0); EOSINOPHILS % (AUTO) 0.2 % (0.0-6.0); HEMATOCRIT 32 % (33-45); HEMOGLOBIN 10.3 g/dL (11.5-14.8); LYMPHOCYTES # (AUTO) 0.8 K/uL (0.8-4.8); LYMPHOCYTES % (AUTO) 11.5 % (20.0-44.0); MEAN CORPUSCULAR HGB CONC 32 g/dl (31.0-36.0); MEAN CORPUSCULAR VOLUME 80 fL (82-100); MONOCYTES # (AUTO) 0.5 K/uL (0.1-1.30); MONOCYTES % (AUTO) 7.3 % (2.0-12.0); NEUTROPHILS # (AUTO) 5.4 K/uL (1.8-8.9); NEUTROPHILS % (AUTO) 80.6 % (43.0-81.0); PLATELET COUNT (AUTO) 244 K/uL (150-450); RED BLOOD CELL COUNT(AUTO) 3.97 MIL/uL (4.0-5.2); WHITE BLOOD COUNT (AUTO) 6.6 K/uL (4.3-11.0)
[2021-02-08] MEDS ORDERED: CIPROFLOXACIN IV RTU 400 MG in PREMIX 1 EA IV SCH ×2 (01:00→14:00)
[2021-02-08] MEDS ORDERED: FLAGYL/NS RTU 500 MG/100 ML PIGGYBACK IV ONE (01:00)
[2021-02-08 01:02] LABS: BILIRUBIN,URINE NEGATIVE (NEGATIVE); COLOR,URINE YELLOW (YELLOW); LEUKOCYTE ESTERASE ,URINE NEGATIVE (NEGATIVE); NITRITE, URINE NEGATIVE (NEGATIVE); PH,URINE 5.5 (5.0-8.0); PROTEIN,URINE TRACE mg/dl (NEGATIVE); UGLUCOSE NEGATIVE (NEGATIVE); UROBILINOGEN,URINE 0.2 EU/dL (0.2)
[2021-02-08 01:10] LABS: ALANINE AMINOTRANSFERASE 15 U/L (12-78); ALBUMIN 2.9 g/dL (3.4-5.0); ALKALINE PHOSPHATASE 61 U/L (46-116); ASPARTATE AMINOTRANSFERASE 21 U/L (15-37); BILIRUBIN,DIRECT 0.1 mg/dL (0.0-0.2); BILIRUBIN,TOTAL 0.4 mg/dL (0.2-1.0); CARBON DIOXIDE 22 mmol/L (21-32); CHLORIDE 100 mmol/L (98-107); GLUCOSE 91 mg/dL (74-106); LIPASE 142 U/L (73-393); SODIUM SERUM 136 mmol/L (136-145); TOTAL PROTEIN, SERUM 7.3 g/dL (6.4-8.2); UREA NITROGEN, BLOOD 23 mg/dL (7-18)
[2021-02-08] MEDS ORDERED: CIPROFLOXACIN IV RTU 200 ML IV ONE (01:10)
[2021-02-08] MEDS ORDERED: METRONIDAZOLE 500MG/ NS 100ML 100 ML IV ONE (01:11)
[2021-02-08 01:19] LABS: POTASSIUM 2.8 mmol/L (3.5-5.1)
--- NOTE | 2021-02-08 01:19 | NUR ---
per lab, potassium 2.8
[2021-02-08] MEDS ORDERED: LORAZEPAM INJ 2 MG/ML VIAL ONE (01:21)
[2021-02-08] MEDS ORDERED: POTASSIUM CHLORIDE 20 MEQ TAB.PRT.SR PO ONE ×3 (01:28→01:30)
[2021-02-08] MEDS ORDERED: LORAZEPAM INJ 2 MG/ML VIAL IV ONE (01:30)
--- NOTE | 2021-02-08 07:13 | NUR ---
covid swab done and sent to the lab.
--- NOTE | 2021-02-08 08:13 | NUR ---
ROOM 109
--- NOTE | 2021-02-08 08:22 | NUR ---
REPORT GIVEN TO NURSE BADILLO
[2021-02-08 10:00] VITALS: BP 130/72
[2021-02-08] MEDS: HEPARIN SODIUM, PORCINE 5000 UNITS/1 ML VIAL SQ SCH ×2 (10:49→20:23)
[2021-02-08] MEDS ORDERED: QUETIAPINE FUMARATE 25 MG TABLET PO PRN (13:30)
[2021-02-08] MEDS ORDERED: ONDANSETRON HCL/PF 4 MG/2 ML VIAL IV PRN (13:30)
[2021-02-08] MEDS: Potassium Chloride 20 MEQ in IV D5/ 0.9% NACL 1,000 ML IV SCH (13:41)
[2021-02-08 14:00] VITALS: BP 114/70
[2021-02-08] MEDS: METRONIDAZOLE 500MG/ NS 100ML 500 MG in PREMIX 1 EA IV SCH ×2 (14:00→21:11)
[2021-02-08] MEDS ORDERED: CIPROFLOXACIN IV RTU 200 MG in PREMIX 1 EA IV SCH (14:00)
[2021-02-08] MEDS: CIPROFLOXACIN IV RTU 400 MG in PREMIX 1 EA IV SCH (15:04)
[2021-02-08] MEDS ORDERED: FERR325T23 PO (15:09)
[2021-02-08] MEDS ORDERED: METR-147 PO (15:09)
[2021-02-08] MEDS ORDERED: LUBI24CA5 PO (15:09)
[2021-02-08] MEDS ORDERED: CIPR-262 PO (15:09)
[2021-02-08] MEDS ORDERED: GABA-532 PO (15:09)
[2021-02-08] MEDS ORDERED: AMLO-212 PO (15:09)
[2021-02-08] MEDS ORDERED: CHOL100062 PO (15:10)
[2021-02-08] MEDS ORDERED: ACET325T53 PO (15:12)
[2021-02-08] MEDS: LORAZEPAM INJ 2 MG/ML VIAL IV PRN ×2 (17:02→22:11)
[2021-02-08 18:00] VITALS: BP 110/68
--- NOTE | 2021-02-08 18:47 | NUR ---
RN NOTES; ADMITTED FROM ER. PT C/O ABDOMINAL PAIN. PT COVID +. PT A/OX1 WITH A HISTORY OF DEMENTIA. PT AGGRESSIVE AND COMBATIVE. SOFT RESTRAINTS ON BOTH HANDS.TO BE RENEWED AT 16.25. ATIVAN GIVEN AND WAS ABLE TO CALM PT DOWN. NO SOB NOTED, NO COUGH OR SPUTUM ON SHIFT. PT IS RESTING. ALL MEDICATION GIVEN, WELL TOLERATED. SAFETY MEASURES RENDERED. BED IN LOWEST POS. WITH CALL LIGHT WITHIN REACH. ENDORSED TO ASSURANCE ENGINEER RN IN STABLE CONDITION.
--- NOTE | 2021-02-08 19:00 | NUR ---
RN NOTE RECEIVED PATIENT IN BED RESTING ALERT ORIETNED X1 VERBALLY RESPONSIVE ON 2L OXYGEN VIA NASAL CANNULA O2:99% IV SITE IS ON RIGHT HAND AND LEFT UPPER ARM MIDLINE INTACT PATENT ON IV HYDRATION POTASSIUM CHLORIDE IN D5 NS 70CC/HR RUNNING.INCONTINENT TO BOWEL/BLADDER,SOFT BILATERAL WRIST RESTRAIN IN PLACE WILL CHECK EVERY 15MINS FOR SKIN BREAKDOWN AND CIRCULATION.SAFETY MEASURE IMPLEMENT BED IN LOW POSITION AND LOCKED CONTINUE TO MONITOR.
[2021-02-08 20:00] VITALS: BP 134/59
[2021-02-08] MEDS: FAMOTIDINE (20 MG) 20 MG TABLET PO SCH (20:22)
--- NOTE | 2021-02-08 21:30 | NUR ---
RN NOTE PATIENT PULLED OUT MIDLINE, COMPRESS THE SITE,COVERED WITH DRESSING.EDUCATED NOT PULLING OUT IV LINES STARTED A NEW IV LINE ON LEFT HAND #22 G WITH GOOD BLOOD RETURN NO INFILTRATION CONTINUE TO MONITOR
[2021-02-09 04:00] VITALS: BP 103/64
[2021-02-09] MEDS: Potassium Chloride 20 MEQ in IV D5/ 0.9% NACL 1,000 ML IV SCH (04:30)
[2021-02-09] MEDS: ACETAMINOPHEN 650 MG/20.3 ML UDC NG PRN ×3 (04:32→22:50)
[2021-02-09] MEDS: METRONIDAZOLE 500MG/ NS 100ML 500 MG in PREMIX 1 EA IV SCH ×3 (05:16→22:06)
--- NOTE | 2021-02-09 06:32 | NUR ---
RN NOTE PATIENT REMAINS ALERT ORIENTED X1 ANXIOUS VERBALLY RESPONSIVE ON 2L OXYGEN VIA NASAL CANNULA,O2::98%,NO SOB NOT ACUTE DISTRESS NOTED, IV SITE IS ON LEFT HAND AND RIGHT HAND INTACT PATENT ON IV HYDRATION POTASSIUM CHLORIDE IN D5NS 70CC/HR.ALL DUE MEDS GIVEN MD ORDERED KEPT CLEAN AND DRY ALL THE TIME,REPOSITIONED EVERY 2 HOURS,SOFT BILATERAL WRIST RESTRAIN IN PLACE CHECKED EVERY 15MINS FOR SKIN BREAK DOWN AND CIRCULATION,ALL NEEDS MET ENDORSE NEXT COMING SHIFT FOR CONTINUATION OF CARE.
--- NOTE | 2021-02-09 07:27 | NUR ---
MS RN OPENING NOTES RECEIVED PATIENT IN BED, RESTING. EASY TO AROUSE. A/O X1. CONFUSED. STABLE ON 2L OXYGEN VIA NASAL CANNULA - TOLERATING WELL. NO SOB NOTED. NO DISTRESS/DISCOMFORT NOTED. IV ACCESS TO RIGHT HAND #20 AND AND LEFT HAND #22 - BOTH INTACT AND FLUSH WELL. RIGHT HAND RUNNING POTASSIUM CHLORIDE IN D5NS @ 70ML/HR. SOFT BILATERAL WRIST RESTRAINTS IN PLACE. GOOD CIRCULATION NOTED. SAFETY MEASURES IN PLACE. CALL LIGHT WITHIN REACH. WILL CONTINUE TO MONITOR.
[2021-02-09 07:40] LABS: BASOPHILS % (AUTO) 0.4 % (0.0-2.0); EOSINOPHILS % (AUTO) 0.1 % (0.0-6.0); HEMATOCRIT 25 % (33-45); HEMOGLOBIN 8.4 g/dL (11.5-14.8); LYMPHOCYTES # (AUTO) 0.6 K/uL (0.8-4.8); LYMPHOCYTES % (AUTO) 11.7 % (20.0-44.0); MEAN CORPUSCULAR HGB CONC 33 g/dl (31.0-36.0); MEAN CORPUSCULAR VOLUME 80 fL (82-100); MONOCYTES # (AUTO) 0.5 K/uL (0.1-1.30); MONOCYTES % (AUTO) 10.5 % (2.0-12.0); NEUTROPHILS # (AUTO) 3.6 K/uL (1.8-8.9); NEUTROPHILS % (AUTO) 77.3 % (43.0-81.0); RED BLOOD CELL COUNT(AUTO) 3.15 MIL/uL (4.0-5.2); WHITE BLOOD COUNT (AUTO) 4.7 K/uL (4.3-11.0)
[2021-02-09 07:56] VITALS: BP 120/64
[2021-02-09 08:11] LABS: CARBON DIOXIDE 19 mmol/L (21-32); CHLORIDE 107 mmol/L (98-107); CREATININE 1.5 mg/dL (0.6-1.3); GLUCOSE 121 mg/dL (74-106); POTASSIUM 3.2 mmol/L (3.5-5.1); SODIUM SERUM 137 mmol/L (136-145); UREA NITROGEN, BLOOD 16 mg/dL (7-18)
[2021-02-09] MEDS: FAMOTIDINE (20 MG) 20 MG TABLET PO SCH ×2 (08:18→22:06)
[2021-02-09] MEDS: HEPARIN SODIUM, PORCINE 5000 UNITS/1 ML VIAL SQ SCH ×2 (08:21→22:09)
[2021-02-09] MEDS ORDERED: POTASSIUM CHLORIDE 20 MEQ TAB.PRT.SR PO SCH (10:30)
[2021-02-09] MEDS ORDERED: POTASSIUM CHLORIDE 10 MEQ TABLET.SA PO ONE (11:30)
[2021-02-09 12:03] VITALS: BP 120/64
[2021-02-09] MEDS ORDERED: POTASSIUM CHLORIDE 20 MEQ TAB.PRT.SR PO ONE (13:30)
[2021-02-09] MEDS: NEPRO VAN 237 ML CAN PO SCH ×2 (14:36→16:10)
[2021-02-09 14:40] LABS: PLATELET COUNT (AUTO) 144 K/uL (150-450)
[2021-02-09] MEDS: CIPROFLOXACIN IV RTU 400 MG in PREMIX 1 EA IV SCH (15:02)
[2021-02-09] MEDS: MORPHINE SULFATE INJ 2 MG/ML DISP.SYRIN IV PRN ×2 (15:47→22:08)
[2021-02-09] MEDS: MEMANTINE HCL 5 MG TABLET PO SCH (16:14)
[2021-02-09] MEDS: GABAPENTIN 100 MG CAPSULE PO SCH (16:15)
[2021-02-09] MEDS: DOCUSATE SODIUM 100 MG CAPSULE PO SCH (16:15)
[2021-02-09] MEDS: LORAZEPAM INJ 2 MG/ML VIAL IV PRN (18:06)
--- NOTE | 2021-02-09 18:40 | NUR ---
MS RN CLOSING NOTES PATIENT CURRENTLY LYING IN BED, AWAKE AND WATCHING TV. A/O X2. CONFUSED AT TIMES. STABLE ON 2L OXYGEN VIA NASAL CANNULA - TOLERATING WELL. NO SOB NOTED. NO DISTRESS/DISCOMFORT NOTED. IV ACCESS TO RIGHT HAND #20 AND AND LEFT HAND #22 - BOTH INTACT AND FLUSH WELL. NO FLUIDS RUNNING. SOFT BILATERAL WRIST RESTRAINT TO LEFT ARM IN PLACE. GOOD CIRCULATION NOTED. SAFETY MEASURES IN PLACE. CALL LIGHT WITHIN REACH. WILL ENDORSE TO NCR OPERATOR NURSE FOR ARGELIA.
[2021-02-09 20:00] VITALS: BP 142/75
[2021-02-10 04:00] VITALS: BP 133/69
[2021-02-10] MEDS: METRONIDAZOLE 500MG/ NS 100ML 500 MG in PREMIX 1 EA IV SCH (06:07)
--- NOTE | 2021-02-10 07:30 | NUR ---
RN notes Resting comfortably in bed with no distress noted. Breathing even and unlabored. Noted with elevated temperature of 100.5, tylenol given with help. Son called, updated on mother's condition. MD called with orders for UA and C&S, blood culture x 2, dc cipro and start Cefepime 1g q12h. Noted with allergy to penicillin, doctor aware and said it is ok to administer cefepime. All orders noted and carried out. Kept clean and dry. Endorsed to next shift for continuity of care.
--- NOTE | 2021-02-10 07:30 | NUR ---
MS RN OPENING NOTES RECEIVED PATIENT IN BED, ASLEEP, EASY TO AROUSE AND RESPONDS TO TOUCH AND NAME. A/O X1-2. CONFUSED. ON 2L OXYGEN VIA NASAL CANNULA - O2 SAT 100%, NO SOB, RESPIRATION UNLABORED. DENIES PAIN AT THIS TIME. IV ACCESS TO RIGHT HAND #20 AND AND LEFT HAND #22 - BOTH INTACT AND FLUSH WELL. BOTH SITES CLEAR. SOFT BILATERAL WRIST RESTRAINTS IN PLACE. RELEASED AND CHECKED FOR CIRCULATION THEN EVERY 2 HOURS. RENAL STANDARD DIET, ASSISTED IN EATING, WILL TURN AND REPOSITION. BEL LOW LOCKED, SR UPX 2, SAFETY MEASURES IN PLACE. CALL LIGHT WITHIN REACH. WILL CONTINUE TO MONITOR.
[2021-02-10 08:00] VITALS: BP 143/65
[2021-02-10] MEDS: MEMANTINE HCL 5 MG TABLET PO SCH ×2 (08:35→17:13)
[2021-02-10] MEDS: CEFEPIME 1 GM in IV D5W 50 ML IV SCH ×2 (08:35→21:20)
[2021-02-10] MEDS: HEPARIN SODIUM, PORCINE 5000 UNITS/1 ML VIAL SQ SCH ×2 (08:37→21:19)
[2021-02-10] MEDS: CYANOCOBALAMIN 500 MCG TABLET PO SCH (08:37)
[2021-02-10] MEDS: VENLAFAXINE XR 75 MG CAP.SR.24H PO SCH (08:37)
[2021-02-10] MEDS: DOCUSATE SODIUM 100 MG CAPSULE PO SCH ×2 (08:38→17:13)
[2021-02-10] MEDS: FAMOTIDINE (20 MG) 20 MG TABLET PO SCH ×2 (08:38→21:17)
[2021-02-10] MEDS: GABAPENTIN 100 MG CAPSULE PO SCH ×3 (08:38→17:13)
[2021-02-10] MEDS: NEPRO VAN 237 ML CAN PO SCH ×3 (08:43→17:30)
--- NOTE | 2021-02-10 09:30 | NUR ---
RN NOTES DUE MEDS GIVEN
[2021-02-10] MEDS: LORAZEPAM INJ 2 MG/ML VIAL IV PRN ×2 (10:19→21:19)
[2021-02-10 11:43] LABS: BASOPHILS % (AUTO) 0.4 % (0.0-2.0); EOSINOPHILS % (AUTO) 0.3 % (0.0-6.0); HEMATOCRIT 30 % (33-45); HEMOGLOBIN 9.5 g/dL (11.5-14.8); LYMPHOCYTES # (AUTO) 0.5 K/uL (0.8-4.8); LYMPHOCYTES % (AUTO) 10.9 % (20.0-44.0); MEAN CORPUSCULAR HGB CONC 32 g/dl (31.0-36.0); MEAN CORPUSCULAR VOLUME 83 fL (82-100); MONOCYTES # (AUTO) 0.3 K/uL (0.1-1.30); MONOCYTES % (AUTO) 6.1 % (2.0-12.0); NEUTROPHILS # (AUTO) 3.8 K/uL (1.8-8.9); NEUTROPHILS % (AUTO) 82.3 % (43.0-81.0); PLATELET COUNT (AUTO) 203 K/uL (150-450); RED BLOOD CELL COUNT(AUTO) 3.61 MIL/uL (4.0-5.2); WHITE BLOOD COUNT (AUTO) 4.6 K/uL (4.3-11.0)
[2021-02-10 11:49] LABS: CALCIUM, SERUM 6.5 mg/dL (8.5-10.1); CARBON DIOXIDE 19 mmol/L (21-32); CHLORIDE 106 mmol/L (98-107); CREATININE 1.5 mg/dL (0.6-1.3); GLUCOSE 114 mg/dL (74-106); POTASSIUM 3.8 mmol/L (3.5-5.1); SODIUM SERUM 137 mmol/L (136-145); UREA NITROGEN, BLOOD 12 mg/dL (7-18)
[2021-02-10] MEDS: METRONIDAZOLE 500 MG TABLET PO SCH ×2 (12:50→21:17)
[2021-02-10] MEDS: GUAIFENESIN LA 600 MG TABLET.SA PO SCH ×2 (15:34→21:17)
[2021-02-10] MEDS: QUETIAPINE FUMARATE 25 MG TABLET PO SCH ×2 (15:35→17:13)
[2021-02-10 16:00] VITALS: BP 135/74
--- NOTE | 2021-02-10 18:35 | NUR ---
RN CLOSING NOTE PT IS LYING IN BED WITH HOB ABOVE 30 DEGREES. PT EASY TO AROUSE AND RESPONDS TO TOUCH AND NAME. A/O X1-2. CONFUSED. ON 2L OXYGEN VIA NASAL CANNULA - O2 SAT 100%, NO SOB, RESPIRATION UNLABORED. DENIES PAIN AT THIS TIME. IV ACCESS TO RIGHT HAND #20 AND AND LEFT HAND #22 - BOTH INTACT AND FLUSH WELL. BOTH SITES CLEAR. SOFT BILATERAL WRIST RESTRAINTS IN PLACE. RELEASED AND CHECKED FOR CIRCULATION THEN EVERY 2 HOURS. 12.5MG SCHEDULED AND PRN SEROQUEL STARTED @1700. CXR SCHEDULED FOR 02/11. RENAL STANDARD DIET, ASSISTED IN EATING, WILL TURN AND REPOSITION. BEL LOW LOCKED, SR UPX 2, SAFETY MEASURES IN PLACE. CALL LIGHT WITHIN REACH. WILL CONTINUE TO MONITOR. Addendum: 02/10/21 at 1841 by ISAAC GOODMAN RN PT IS LYING IN BED WITH HOB ABOVE 30 DEGREES. PT EASY TO AROUSE AND RESPONDS TO TOUCH AND NAME. A/O X1-2. CONFUSED. ON 2L OXYGEN VIA NASAL CANNULA - O2 SAT 100%, NO SOB, RESPIRATION UNLABORED. DENIES PAIN AT THIS TIME. IV ACCESS TO RIGHT HAND #20 AND AND LEFT HAND #22 - BOTH INTACT AND FLUSH WELL. BOTH SITES CLEAR. SOFT BILATERAL WRIST RESTRAINTS IN PLACE. RELEASED AND CHECKED FOR CIRCULATION THEN EVERY 2 HOURS. 12.5MG SCHEDULED AND PRN SEROQUEL STARTED @1700. CXR SCHEDULED FOR 02/11. RENAL STANDARD DIET, ASSISTED IN EATING, TURNED AND REPOSITIONED. BED LOW LOCKED, SR UPX 2, SAFETY MEASURES IN PLACE. CALL LIGHT WITHIN REACH. ALL DUE MEDICATIONS GIVEN, ALL NEEDS MET, PATIENT REMAINED STABLE THROUGHOUT SHIFT. WILL ENDORSE TO SBA BUSINESS DEVELOPMENT OFFICER NURSE FOR ARGELIA.
--- NOTE | 2021-02-10 19:00 | NUR ---
MS RN OPENING NOTE RECEIVED PT IN BED, RESTING. A WITH CONFUSION. PT IS ON 2L OXYGEN VIA NASAL CANULA, NO SOB OR RESPIRATORY DISTRESS NOTED, NO C/O PAIN. RESPIRATIONS EVEN AND UNLABORED, IV ACCESS NOTED IN RIGHT HAND G#20, LEFT HAND G#22, INTACT, PATENT AND FLUSHING WELL. FALL AND SAFETY MEASURES IN PLACE AND MAINTAINED AT ALL TIMES. BED ALARM ON, BED IN LOW AND LOCKED POSITION, HOB ELEVATED TO SEMI FOWLERS POSITION, CALL LIGHT AND TABLE WITHIN REACH, SIDE RAILS UP X2. WILL CONTINUE TO MONITOR.
[2021-02-10 20:00] VITALS: BP 167/93
--- NOTE | 2021-02-10 21:19 | NUR ---
PER NURSING JUDGEMENT, PT WAS RESTLESS AND AGITATED. ADMINISTERED ATIVAN 0.25ML IV Q4HR PRN ORDERED. WILL CONTINUE TO MONITOR
[2021-02-11 00:46] VITALS: BP 160/87
[2021-02-11 04:00] VITALS: BP 147/87
[2021-02-11] MEDS: METRONIDAZOLE 500 MG TABLET PO SCH ×3 (05:20→21:06)
--- NOTE | 2021-02-11 06:30 | NUR ---
RN CLOSING NOTE PT REMAINED STABLE THROUGHOUT SHIFT. WILL ENDORSE TO ONCOMING RN.
--- NOTE | 2021-02-11 07:45 | NUR ---
RN NOTES RECEIVED PT IN BED, HIGH-FOWLERS POSITION WITH SOFT WRIST RESTRAINTS. PT L HAND 22G INFILTRATED, STOPPED IV, REMOVED, AND ELEVATED WITH A PILLOW. PT ON 2L NC, SHOWING NO S/SX OF ACUTE RESPIRATORY DISTRESS. SAFETY MEASURES IN PLACE WITH BED IN LOWEST LOCKED POSITION, SIDE RAILS UP X3, CALL LIGHT WITHIN REACH AND BED ALARM ON.
[2021-02-11 08:00] VITALS: BP 132/74
[2021-02-11 08:19] LABS: CALCIUM, SERUM 6.5 mg/dL (8.5-10.1); CARBON DIOXIDE 21 mmol/L (21-32); CHLORIDE 103 mmol/L (98-107); CREATININE 1.5 mg/dL (0.6-1.3); GLUCOSE 104 mg/dL (74-106); POTASSIUM 3.6 mmol/L (3.5-5.1); SODIUM SERUM 135 mmol/L (136-145); UREA NITROGEN, BLOOD 13 mg/dL (7-18)
[2021-02-11] MEDS: NEPRO VAN 237 ML CAN PO SCH ×3 (08:31→17:00)
[2021-02-11 08:39] LABS: BASOPHILS % (AUTO) 0.2 % (0.0-2.0); HEMATOCRIT 30 % (33-45); HEMOGLOBIN 9.9 g/dL (11.5-14.8); LYMPHOCYTES # (AUTO) 0.6 K/uL (0.8-4.8); LYMPHOCYTES % (AUTO) 12.7 % (20.0-44.0); MEAN CORPUSCULAR HGB CONC 33 g/dl (31.0-36.0); MEAN CORPUSCULAR VOLUME 80 fL (82-100); MONOCYTES # (AUTO) 0.3 K/uL (0.1-1.30); MONOCYTES % (AUTO) 5.3 % (2.0-12.0); NEUTROPHILS % (AUTO) 81.8 % (43.0-81.0); RED BLOOD CELL COUNT(AUTO) 3.69 MIL/uL (4.0-5.2); WHITE BLOOD COUNT (AUTO) 4.9 K/uL (4.3-11.0)
[2021-02-11] MEDS: CYANOCOBALAMIN 500 MCG TABLET PO SCH (08:39)
[2021-02-11] MEDS: QUETIAPINE FUMARATE 25 MG TABLET PO SCH ×2 (08:39→16:03)
[2021-02-11] MEDS: GUAIFENESIN LA 600 MG TABLET.SA PO SCH ×2 (08:40→21:06)
[2021-02-11] MEDS: VENLAFAXINE XR 75 MG CAP.SR.24H PO SCH (08:40)
[2021-02-11] MEDS: GABAPENTIN 100 MG CAPSULE PO SCH ×3 (08:40→16:03)
[2021-02-11] MEDS: MEMANTINE HCL 5 MG TABLET PO SCH ×2 (08:40→16:02)
[2021-02-11] MEDS: FAMOTIDINE (20 MG) 20 MG TABLET PO SCH ×2 (08:40→21:06)
[2021-02-11] MEDS: HEPARIN SODIUM, PORCINE 5000 UNITS/1 ML VIAL SQ SCH ×2 (08:42→21:11)
[2021-02-11] MEDS: CEFEPIME 1 GM in IV D5W 50 ML IV SCH ×2 (08:43→21:06)
[2021-02-11] MEDS: DOCUSATE SODIUM LIQ 100 MG/10 ML UDC PO SCH ×2 (09:02→16:02)
--- NOTE | 2021-02-11 11:00 | NUR ---
RN NOTES UNABLE TO FLUSH R HAND 20 G, REMOVED AND FIELD SALES AGENT INSERTED R HAND 22G, DRESSING IN TACT AND FLUSHED.
[2021-02-11 12:00] VITALS: BP 100/66
[2021-02-11] MEDS: ACETAMINOPHEN 650 MG/20.3 ML UDC NG PRN (12:43)
[2021-02-11 13:09] LABS: PLATELET COUNT (AUTO) 164 K/uL (150-450)
--- NOTE | 2021-02-11 14:30 | NUR ---
RN NOTES DR. MON ASSESSED PATIENT AND SPOKE WITH SON, MAURISIO WHO WAS ABLE TO FACETIME WITH THE PT.
[2021-02-11] MEDS ORDERED: FUROSEMIDE 40 MG/4 ML VIAL IV ONE (15:00)
[2021-02-11] MEDS ORDERED: REMDESIVIR (CHARGED) 200 MG, *LOADING DOSE 1 EA in IV NS 0.9% 210 ML IV ONE (15:30)
[2021-02-11] MEDS ORDERED: POTASSIUM CHLORIDE 20 MEQ TAB.PRT.SR PO ONE (15:30)
[2021-02-11 16:00] VITALS: BP 102/64
[2021-02-11] MEDS: DEXAMETHASONE 4 MG TABLET PO SCH (16:00)
--- NOTE | 2021-02-11 18:45 | NUR ---
RN NOTES PT IS RESTING COMFORTABLY IN HIGH-FOWLERS POSITION WITH LEFT ARM ELEVATED, SHOWING NO S/SX OF ACUTE RESPIRATORY DISTRESS. PT HAD NO BOWEL MOVEMENT ON SHIFT. PT HAS A RIGHT HAND 22 G SALINE LOCK, FLUSHED, WITH DRESSING IN TACT. ALL NEEDS ATTENDED AT THIS TIME. SAFETY MEASURES IN PLACE WITH BED IN LOWEST LOCKED POSITION, SIDE RAILS UP X3, CALL LIGHT WITHIN REACH.
--- NOTE | 2021-02-11 19:50 | NUR ---
MS RN NOTES PT IS RESTING COMFORTABLY IN HIGH-FOWLERS POSITION WITH LEFT ARM ELEVATED, SHOWING NO S/SX OF ACUTE RESPIRATORY DISTRESS. PT HAS A RIGHT HAND 22 G SALINE LOCK, FLUSHED, WITH DRESSING INTACT. ALL NEEDS ATTENDED AT THIS TIME. SAFETY MEASURES IN PLACE WITH BED IN LOWEST LOCKED POSITION, SIDE RAILS UP X3, CALL LIGHT WITHIN REACH. WILL CONTINUE TO MONITOR.
[2021-02-11 20:55] VITALS: BP_SYST 102; BP_SYST 126; BP_DIAS 64; BP_DIAS 78
[2021-02-12 00:19] VITALS: BP 126/78
[2021-02-12] MEDS: METRONIDAZOLE 500 MG TABLET PO SCH ×3 (05:25→22:06)
--- NOTE | 2021-02-12 06:35 | NUR ---
RN NOTES PT IS RESTING COMFORTABLY IN HIGH-FOWLERS POSITION WITH LEFT ARM ELEVATED, SHOWING NO S/SX OF ACUTE RESPIRATORY DISTRESS. PT HAS A RIGHT HAND 22 G SALINE LOCK, FLUSHED, WITH DRESSING INTACT. ALL NEEDS ATTENDED AT THIS TIME. RESTRAINTS ON AT THIS TIME EVERY 2HRS CIRCULATION CHECK DONE NEEDS ANTICIPATED AND ATTENDED TO. ALL DUE MEDS GIVEN AND TOLERATED WELL. SAFETY MEASURES IN PLACE WITH BED IN LOWEST LOCKED POSITION, SIDE RAILS UP X3, CALL LIGHT WITHIN REACH. WILL ENDORSE CARE TO DAY SHIFT NURSE.
[2021-02-12 07:37] LABS: HEMOGLOBIN 9.4 g/dL (11.5-14.8); LYMPHOCYTES # (AUTO) 0.6 K/uL (0.8-4.8); MONOCYTES # (AUTO) 0.3 K/uL (0.1-1.30); RED BLOOD CELL COUNT(AUTO) 3.54 MIL/uL (4.0-5.2)
[2021-02-12 07:44] LABS: BASOPHILS % (AUTO) 0.1 % (0.0-2.0); HEMATOCRIT 28 % (33-45); MEAN CORPUSCULAR HGB CONC 33 g/dl (31.0-36.0); MEAN CORPUSCULAR VOLUME 80 fL (82-100); MONOCYTES % (AUTO) 6.5 % (2.0-12.0); NEUTROPHILS # (AUTO) 3.2 K/uL (1.8-8.9); NEUTROPHILS % (AUTO) 78.4 % (43.0-81.0); WHITE BLOOD COUNT (AUTO) 4.1 K/uL (4.3-11.0)
--- NOTE | 2021-02-12 07:45 | NUR ---
RN NOTE RECEIVED PT AWAKE IN BED IN SEMI-FOWLERS POSITION IN NO ACUTE RESPIRATORY DISTRESS. PT HAS A RIGHT HAND 22G SALINE LOCK, PATENT, FLUSHED WITH DRESSING IN TACT. SAFETY MEASURES IN PLACE WITH BED IN LOWEST LOCKED POSITION, CALL LIGHT WITHIN REACH, SOFT WRIST RESTRAINTS AND BED ALARM ON.
[2021-02-12 08:00] VITALS: BP 147/78
[2021-02-12 08:00] LABS: CALCIUM, SERUM 6.8 mg/dL (8.5-10.1); CARBON DIOXIDE 21 mmol/L (21-32); CHLORIDE 104 mmol/L (98-107); CREATININE 1.6 mg/dL (0.6-1.3); GLUCOSE 104 mg/dL (74-106); SODIUM SERUM 137 mmol/L (136-145); UREA NITROGEN, BLOOD 22 mg/dL (7-18)
[2021-02-12] MEDS: CYANOCOBALAMIN 500 MCG TABLET PO SCH (08:38)
[2021-02-12] MEDS: QUETIAPINE FUMARATE 25 MG TABLET PO SCH ×2 (08:39→16:38)
[2021-02-12] MEDS: GUAIFENESIN LA 600 MG TABLET.SA PO SCH ×2 (08:39→21:00)
[2021-02-12] MEDS: VENLAFAXINE XR 75 MG CAP.SR.24H PO SCH (08:39)
[2021-02-12] MEDS: MEMANTINE HCL 5 MG TABLET PO SCH ×2 (08:39→16:37)
[2021-02-12] MEDS: FAMOTIDINE (20 MG) 20 MG TABLET PO SCH ×2 (08:39→22:06)
[2021-02-12] MEDS: GABAPENTIN 100 MG CAPSULE PO SCH ×3 (08:39→16:38)
[2021-02-12] MEDS: DEXAMETHASONE 4 MG TABLET PO SCH (08:40)
[2021-02-12] MEDS: HEPARIN SODIUM, PORCINE 5000 UNITS/1 ML VIAL SQ SCH ×2 (08:49→22:08)
[2021-02-12] MEDS: NEPRO VAN 237 ML CAN PO SCH ×3 (09:02→17:00)
[2021-02-12] MEDS: DOCUSATE SODIUM LIQ 100 MG/10 ML UDC PO SCH ×2 (09:03→16:37)
[2021-02-12] MEDS: CEFEPIME 1 GM in IV D5W 50 ML IV SCH (09:03)
[2021-02-12 11:00] LABS: PLATELET COUNT (AUTO) 235 K/uL (150-450)
[2021-02-12] MEDS ORDERED: REMDESIVIR (CHARGED) 100 MG in IV NS 0.9% 100 ML IV SCH (15:30)
[2021-02-12 16:00] VITALS: BP 142/87
--- NOTE | 2021-02-12 19:00 | NUR ---
RN OPENING NOTES RECEIVED REPORT FROM MORNING NURSE. PATIENT IN BED ALERT WITH PERIODS OF CONFUSION. WITH OXYGEN INHALATION AT 2L VIA NASAL CANULA TOLERATING WELL NO DISTRESS NO SOB NOTED AT THIS TIME. PATIENT IS COVID POSITIVE.WITH IV ACCESS ON R HAND G#22 PATENT FLUSHES WELL NO SIGNS OF INFILTRATION. WITH SOFT RESTRAINTS APPLIED DUE TO PULLING OUT LIFE SUSTAINING DEVICE. VITAL SIGNS TAKEN AND RECORDED. SAFETY MEASURE APPLIED AT ALL TIMES. HOB ELEVATED, BED ON LOWEST POSITION AND LOCKED. CALL LIGHT WITHIN REACH. WILL CONTINUE TO MONITOR CLOSELY
[2021-02-12] MEDS: CEFTRIAXONE 1 G in IV D5W 50 ML IV SCH (22:05)
[2021-02-12] MEDS: GUAIFENESIN/D-METHORPHAN HB 5 ML UDC PO PRN ×3 (22:05→23:30)
[2021-02-13] VITALS: BP 145/85
[2021-02-13] MEDS: METRONIDAZOLE 500 MG TABLET PO SCH ×3 (04:55→21:41)
--- NOTE | 2021-02-13 06:41 | NUR ---
RN CLOSING NOTES PATIENT IN BED NO CHANGES IN HEALTH CONDITION DURING THIS SHIFT. PATIENT OXYGEN MAINTAINS IN 95-97% IN 2LPM/MIN NASAL CANULA. FREQUENT VISUAL MONITORING RENDERED. ALL SAFETY MEASURE IN PLACE, HOB ELEVATED, BED ON LOWEST POSITION AND LOCKED. CALL LIGHT WITHIN REACH. ALL DUE MEDS GIVEN ORDERED. ALL NEEDS ATTENDED PROMPTLY. ENDORSED
--- NOTE | 2021-02-13 07:37 | NUR ---
NURSE OPENING NOTE. RECEIVE REPORT FROM OUT GOING NURSE. ADMITTING DIAGNOSIS OF COVID. PATIENT RECEIVING OXYGEN VIA NASAL CANULA @ 2L. PATIENT IS ALERT WITH PERIOD OF CONFUSION. SKIN IS INTACT WITH PERINEAL REDNESS. SAFETY MEASURE IN PLACE. BED ON THE LOWEST POSITION WITH HOB ELEVATED WITH 3 SIDE RAIL UP. WILL CONTINUE TO MONITOR.
[2021-02-13 07:49] LABS: BASOPHILS % (AUTO) 0.1 % (0.0-2.0); HEMATOCRIT 32 % (33-45); HEMOGLOBIN 10.4 g/dL (11.5-14.8); LYMPHOCYTES # (AUTO) 0.7 K/uL (0.8-4.8); LYMPHOCYTES % (AUTO) 9.5 % (20.0-44.0); MEAN CORPUSCULAR HGB CONC 32 g/dl (31.0-36.0); MEAN CORPUSCULAR VOLUME 81 fL (82-100); MONOCYTES # (AUTO) 0.4 K/uL (0.1-1.30); MONOCYTES % (AUTO) 4.9 % (2.0-12.0); NEUTROPHILS # (AUTO) 6.4 K/uL (1.8-8.9); NEUTROPHILS % (AUTO) 85.5 % (43.0-81.0); PLATELET COUNT (AUTO) 182 K/uL (150-450); RED BLOOD CELL COUNT(AUTO) 3.96 MIL/uL (4.0-5.2); WHITE BLOOD COUNT (AUTO) 7.5 K/uL (4.3-11.0)
[2021-02-13 07:57] LABS: CALCIUM, SERUM 7.6 mg/dL (8.5-10.1); CARBON DIOXIDE 21 mmol/L (21-32); CHLORIDE 101 mmol/L (98-107); CREATININE 1.5 mg/dL (0.6-1.3); GLUCOSE 102 mg/dL (74-106); POTASSIUM 3.4 mmol/L (3.5-5.1); SODIUM SERUM 136 mmol/L (136-145); UREA NITROGEN, BLOOD 24 mg/dL (7-18)
[2021-02-13 08:00] VITALS: BP 166/83
[2021-02-13] MEDS: NEPRO VAN 237 ML CAN PO SCH ×3 (08:00→16:16)
[2021-02-13] MEDS: GABAPENTIN 100 MG CAPSULE PO SCH ×3 (09:24→16:08)
[2021-02-13] MEDS: CYANOCOBALAMIN 500 MCG TABLET PO SCH (09:24)
[2021-02-13] MEDS: DOCUSATE SODIUM LIQ 100 MG/10 ML UDC PO SCH ×2 (09:24→16:07)
[2021-02-13] MEDS: GUAIFENESIN LA 600 MG TABLET.SA PO SCH ×2 (09:24→21:41)
[2021-02-13] MEDS: VENLAFAXINE XR 75 MG CAP.SR.24H PO SCH (09:25)
[2021-02-13] MEDS: MEMANTINE HCL 5 MG TABLET PO SCH ×2 (09:25→16:08)
[2021-02-13] MEDS: QUETIAPINE FUMARATE 25 MG TABLET PO SCH ×2 (09:25→16:08)
[2021-02-13] MEDS: FAMOTIDINE (20 MG) 20 MG TABLET PO SCH ×2 (09:25→21:41)
[2021-02-13] MEDS: DEXAMETHASONE 4 MG TABLET PO SCH (09:26)
[2021-02-13] MEDS: HEPARIN SODIUM, PORCINE 5000 UNITS/1 ML VIAL SQ SCH ×2 (09:27→21:40)
[2021-02-13] MEDS ORDERED: POTASSIUM CHLORIDE 10 MEQ TABLET.SA PO SCH (09:30)
[2021-02-13 16:00] VITALS: BP 137/64
--- NOTE | 2021-02-13 19:23 | NUR ---
NURSE CLOSING NOTE PATIENT REMAIN STABLE THROUGH OUT SHIFT. TOOK ALL MEDS. ON 2L OF OXYGEN. O2 SAT @96%. ALERT BUT CONFUSE AT TIME. SKIN INTACT WITH PERINEAL REDNESS. PATIENT WAS TURN AND REPOSITION EVERY 2 HOUR PER PROTOCOL. SAFETY MEASURE IN PLACE. BED ON LOWEST POSITION WITH HOB ELEVATED WITH 3 SIDE RAIL UP. CALL LIGHT WITHIN REACH. WILL CONTINUE TO MONITOR AND GIVE REPORT TO ON COMING NURSE.
[2021-02-13 20:00] VITALS: BP 120/75
--- NOTE | 2021-02-13 20:43 | NUR ---
RN NOTES, ENDORSED PATIENT TO JORY RN FOR CONTINUATIONS OF CARE, PATIENT SATING WELL AT 2LPM VIA NC WITH O2 96% AT THIS TIME.
--- NOTE | 2021-02-13 20:49 | NUR ---
RN NOTE REPORT RECEIVED BY NELL PINEDA FOR ARGELIA.
--- NOTE | 2021-02-13 20:50 | NUR ---
RN NOTE PT IN BED RESTING. ON 2L OF O2 SHOWING NO S/S OF RESP DISTRESS. BREATHING EVEN AND UNLABORED. OXYGEN SATURATION >96%. IV ACCESS ON RIGHT HAND #22. LINE FLUSHED, PATENT, AND INTACT. WILL CONTINUE TO MONITOR AND ASSESS FOR ANY CHANGES.
[2021-02-13] MEDS: CEFTRIAXONE 1 G in IV D5W 50 ML IV SCH (21:41)
[2021-02-14] VITALS: BP 140/72
[2021-02-14 04:00] VITALS: BP 145/76
[2021-02-14] MEDS: METRONIDAZOLE 500 MG TABLET PO SCH ×3 (05:19→21:00)
--- NOTE | 2021-02-14 06:36 | NUR ---
RN NOTE NO CHANGES IN PT CONDITION DURING SHIFT. PT IS ON 2L OF O2 SHOWING NO S/S OF RESP DISTRESS. BREATHING EVEN AND UNLABORED. ON TELE MONITOR SHOWING NSR. IV ACCESS NOTED ON RIGHT HAND #22. LINE FLUSHED, PATENT, AND INTACT WITH NO S/SX OF INFILTRATION. ALL DUE MEDS GIVEN ORDERED. PT KEPT CLEAN AND COMFORTABLE. SAFETY MEASURES IMPLEMENTED. BED ALARM ON. BED LOCKED AND IN LOWEST POSITION. SIDE RAILS UP. CALL LIGHT WITHIN REACH. WILL ENDORSE TO MORNING SHIFT RN FOR ARGELIA.
--- NOTE | 2021-02-14 07:19 | NUR ---
NURSE OPENING NOTE RECEIVE REPORT FROM OUT GOING NURSE. PATIENT STABLE AT TIME OF REPORT. ON 2L OXYGEN VIA NASAL CANULA. WILL CONTINUE SUPPORTIVE CARE. ALL SAFETY MEASURE IN PLACE WITH BED. BED ON THE LOWEST POSITION WITH HOB ELEVATED AND 3 SIDE RAIL UP. CALL LIGHT WITHIN REACH. WILL CONTINUE TO MONITOR.
[2021-02-14 08:00] VITALS: BP 144/75
[2021-02-14] MEDS: DOCUSATE SODIUM LIQ 100 MG/10 ML UDC PO SCH ×2 (08:09→17:12)
[2021-02-14] MEDS: VENLAFAXINE XR 75 MG CAP.SR.24H PO SCH (08:10)
[2021-02-14] MEDS: CYANOCOBALAMIN 500 MCG TABLET PO SCH (08:10)
[2021-02-14] MEDS: MEMANTINE HCL 5 MG TABLET PO SCH ×2 (08:10→17:15)
[2021-02-14] MEDS: QUETIAPINE FUMARATE 25 MG TABLET PO SCH ×2 (08:12→17:14)
[2021-02-14] MEDS: FAMOTIDINE (20 MG) 20 MG TABLET PO SCH ×2 (08:12→21:00)
[2021-02-14] MEDS: GUAIFENESIN LA 600 MG TABLET.SA PO SCH ×2 (08:12→21:00)
[2021-02-14] MEDS: DEXAMETHASONE 4 MG TABLET PO SCH (08:13)
[2021-02-14] MEDS: GABAPENTIN 100 MG CAPSULE PO SCH ×3 (08:13→17:14)
[2021-02-14] MEDS: HEPARIN SODIUM, PORCINE 5000 UNITS/1 ML VIAL SQ SCH ×2 (08:33→21:01)
[2021-02-14] MEDS: NEPRO VAN 237 ML CAN PO SCH ×3 (08:39→17:16)
[2021-02-14 12:00] VITALS: BP 133/61
[2021-02-14 16:00] VITALS: BP 109/70
--- NOTE | 2021-02-14 18:42 | NUR ---
NURSE CLOSING NOTE PATIENT STABLE THROUGH OUT SHIFT. PATIENT REMAIN ON OXYGEN VIA NC @ 2L. O2 SAT 96%. PATIENT TURN AND REPOSITION ACCORDING TO PROTOCOL. REMAIN ON RENAL DIET. TOOK ALL MEDS. WILL STAY 2 MORE DAYS. EXPECT TO BE DISCHARGE FRIDAY. ALL SAFETY MEASURE IN PLACE. BED ON LOWEST POSITION WITH HOB ELEVATED 3 SIDE RAIL UP AND CALL LIGHT WITHIN REACH. WILL CONTINUE TO MONITOR AND GIVE REPORT TO ON COMING NURSE.
--- NOTE | 2021-02-14 19:00 | NUR ---
RN NOTE RECEIVED PATIENT IN BED, PT AWAKE AND ALERT WITH PERIODS OF CONFUSION, IN NO S/SX OF ACUTE DISTRESS AT THIS TIME. RESPIRATIONS EVEN AND UNLABORED, SATURATION AT 97% ON 2L VIA NC, HR IS 69. NOTED IV SITE AT R HAND 22G, PATENT AND FLUSHING WELL, NO S/S OF INFECTION OR INFILTRATION. B SOFT WRIST RESTRAINTS IN PLACE, SKIN AND CIRCULATION WAS CHECKED. SAFETY MEASURES IMPLEMENTED. PATIENT BED ALARM IS ON. HEAD OF BED ELEVATED. BED IS LOCKED, IN LOWEST POSITION AND SIDE RAILS UP. CALL LIGHT WITHIN REACH OF THE PATIENT. WILL CONTINUE TO MONITOR AND REASSESS FOR ANY CHANGES.
[2021-02-14 20:00] VITALS: BP_SYST 143; BP_SYST 91; BP_DIAS 46; BP_DIAS 79
[2021-02-14] MEDS: GUAIFENESIN/D-METHORPHAN HB 5 ML UDC PO PRN (23:00)
[2021-02-15 04:00] VITALS: BP_SYST 140; BP_SYST 143; BP_DIAS 79; BP_DIAS 84
[2021-02-15] MEDS: METRONIDAZOLE 500 MG TABLET PO SCH ×3 (05:03→20:02)
[2021-02-15 06:40] LABS: BASOPHILS % (AUTO) 0.1 % (0.0-2.0); HEMATOCRIT 28 % (33-45); HEMOGLOBIN 9.3 g/dL (11.5-14.8); LYMPHOCYTES # (AUTO) 0.7 K/uL (0.8-4.8); LYMPHOCYTES % (AUTO) 15.1 % (20.0-44.0); MEAN CORPUSCULAR HGB CONC 33 g/dl (31.0-36.0); MEAN CORPUSCULAR VOLUME 80 fL (82-100); MONOCYTES # (AUTO) 0.4 K/uL (0.1-1.30); MONOCYTES % (AUTO) 7.7 % (2.0-12.0); NEUTROPHILS # (AUTO) 3.5 K/uL (1.8-8.9); NEUTROPHILS % (AUTO) 77.1 % (43.0-81.0); PLATELET COUNT (AUTO) 234 K/uL (150-450); RED BLOOD CELL COUNT(AUTO) 3.51 MIL/uL (4.0-5.2); WHITE BLOOD COUNT (AUTO) 4.6 K/uL (4.3-11.0)
[2021-02-15 06:56] LABS: CALCIUM, SERUM 7.8 mg/dL (8.5-10.1); CARBON DIOXIDE 22 mmol/L (21-32); CHLORIDE 104 mmol/L (98-107); CREATININE 1.6 mg/dL (0.6-1.3); GLUCOSE 87 mg/dL (74-106); POTASSIUM 4.2 mmol/L (3.5-5.1); SODIUM SERUM 137 mmol/L (136-145); UREA NITROGEN, BLOOD 32 mg/dL (7-18)
--- NOTE | 2021-02-15 07:51 | NUR ---
RN OPENING NOTE PATIENT RECEIVED IN BED, ASLEEP. ON 2L O2 NC WITH NO SIGNS OF LABORED BREATHING AT THIS TIME. R HAND 22G IN PLACE WITH NO SIGNS OF INFILTRATION AT THIS TIME. NO DISTRESS NOTED. BED LOCKED AND IN LOWEST POSITION, CALL LIGHT WITHIN REACH, 3 SIDE RAILS UP. WILL CONTINUE TO MONITOR.
[2021-02-15 08:00] VITALS: BP 137/71
[2021-02-15] MEDS: MEMANTINE HCL 5 MG TABLET PO SCH ×2 (08:37→16:17)
[2021-02-15] MEDS: QUETIAPINE FUMARATE 25 MG TABLET PO SCH ×2 (08:37→16:18)
[2021-02-15] MEDS: DOCUSATE SODIUM LIQ 100 MG/10 ML UDC PO SCH ×2 (08:37→16:17)
[2021-02-15] MEDS: DEXAMETHASONE 4 MG TABLET PO SCH (08:37)
[2021-02-15] MEDS: FAMOTIDINE (20 MG) 20 MG TABLET PO SCH ×2 (08:38→20:02)
[2021-02-15] MEDS: GUAIFENESIN LA 600 MG TABLET.SA PO SCH ×2 (08:38→20:02)
[2021-02-15] MEDS: VENLAFAXINE XR 75 MG CAP.SR.24H PO SCH (08:38)
[2021-02-15] MEDS: GABAPENTIN 100 MG CAPSULE PO SCH ×3 (08:38→16:18)
[2021-02-15] MEDS: CYANOCOBALAMIN 500 MCG TABLET PO SCH (08:38)
[2021-02-15] MEDS: HEPARIN SODIUM, PORCINE 5000 UNITS/1 ML VIAL SQ SCH (08:41)
[2021-02-15] MEDS: NEPRO VAN 237 ML CAN PO SCH ×3 (08:56→16:18)
--- NOTE | 2021-02-15 15:22 | NUR ---
MS RN NOTE INSTRUCTED [place] TO USE INTENSIVE SPIROMETER PER DR RASHMI DIAMOND
[2021-02-15] MEDS: ACETAMINOPHEN 650 MG/20.3 ML UDC NG PRN (16:18)
[2021-02-15] MEDS: LORAZEPAM INJ 2 MG/ML VIAL IV PRN ×2 (16:28→23:28)
--- NOTE | 2021-02-15 18:51 | NUR ---
RN CLOSING NOTE PATIENT IN BED, ASLEEP AT THIS TIME. PATIENT ON 2L O2 NC WITH NO SIGNS OF LABORED BREATHING AT THIS TIME. RIGHT HAND 22G IV IN PLACE, PATENT WITH NO SIGNS OF INFILTRATION. NO SIGNS OF DISTRESS NOTED AT THIS TIME. BED LOCKED AND IN LOWEST POSITION, 3 SIDE RAILS UP, CALL LIGHT WITHIN REACH. WILL ENDORSE TO ZIGZAG STITCHER NURSE.
--- NOTE | 2021-02-15 19:00 | NUR ---
RN NOTE RECEIVED PATIENT IN BED RESTING ALERT ORIENTED X1 VERBALLY RESPONSIVE ON 2L OXYGEN VIA NASAL CANNULA O2:98% IV SITE IS ON RIGHT HAND INTACT PATENT,INCONTINENT BOWEL/BLADDER.SOFT BILATERAL RESTRAIN IN PLACE WILL CHECK EVERY 15MINS FOR SKIN BREAK DOWN AND CIRCULATION,SAFETY MEASURE IMPLEMENT BED IN LOW POSITION AND LOCKED HEAD OF THE BED ELEVATED,CONTINUE TO MONITOR.
[2021-02-15 20:00] VITALS: BP 127/66
--- NOTE | 2021-02-15 23:28 | NUR ---
RN NOTE ATIVAN 0.25ML PRN GIVEN FOR AGITATION CONTINUE TO MONITOR.
--- NOTE | 2021-02-16 04:00 | NUR ---
RN NOTE PATIENT IS CALM AND COOPERATIVE CONTINUE TO MONITOR.
[2021-02-16] MEDS: METRONIDAZOLE 500 MG TABLET PO SCH ×2 (04:30→13:47)
--- NOTE | 2021-02-16 06:48 | NUR ---
RN NOTE PATIENT REMAINS ALERT ORIENTED X1 VERBALLY RESPONSIVE NO SOB NOT ACUTE DISTRESS NOTED,ON 2L OXYGEN VIA NASAL CANNULA O2:96% IV SITE IS ON RIGHT HAND INTACT PATENT ALL DUE MEDS GIVEN MD ORDERED KEPT CLEAN AND DRY ALL THE TIME,SOFT BILATERAL WRIST RESTRAIN IN PLACE CHECKED EVERY 15 MINS FOR CIRCULATION AND SKIN BREAKDOWN KEPT CLEAN AND DRY AL THE TIME,ALL NEEDS MET ENDORSE NEXT COMING SHIFT FOR CONTINUATION OF CARE.
[2021-02-16 08:00] VITALS: BP 134/80
[2021-02-16] MEDS: NEPRO VAN 237 ML CAN PO SCH ×3 (08:00→17:41)
--- NOTE | 2021-02-16 08:00 | NUR ---
RN NOTE PT SAT 84% AFTER CHANGE OF POSITION AND CHANGE OF OXY PROBE. PT CONTINUED TO DESAT. RT TEAM INVOLVED THEY TOO ABG'S. WILL FOLLOW UP
[2021-02-16 08:55] LABS: BASOPHILS % (AUTO) 0.1 % (0.0-2.0); EOSINOPHILS % (AUTO) 0.3 % (0.0-6.0); HEMATOCRIT 31 % (33-45); HEMOGLOBIN 9.9 g/dL (11.5-14.8); LYMPHOCYTES # (AUTO) 0.9 K/uL (0.8-4.8); LYMPHOCYTES % (AUTO) 10.7 % (20.0-44.0); MEAN CORPUSCULAR HGB CONC 32 g/dl (31.0-36.0); MEAN CORPUSCULAR VOLUME 80 fL (82-100); MONOCYTES # (AUTO) 0.7 K/uL (0.1-1.30); MONOCYTES % (AUTO) 8.7 % (2.0-12.0); NEUTROPHILS # (AUTO) 6.4 K/uL (1.8-8.9); NEUTROPHILS % (AUTO) 80.2 % (43.0-81.0); PLATELET COUNT (AUTO) 455 K/uL (150-450); RED BLOOD CELL COUNT(AUTO) 3.86 MIL/uL (4.0-5.2)
[2021-02-16] MEDS: DOCUSATE SODIUM LIQ 100 MG/10 ML UDC PO SCH ×2 (09:00→17:41)
[2021-02-16] MEDS: MEMANTINE HCL 5 MG TABLET PO SCH ×2 (09:01→17:41)
[2021-02-16] MEDS: FAMOTIDINE (20 MG) 20 MG TABLET PO SCH ×2 (09:01→21:27)
[2021-02-16] MEDS: VENLAFAXINE XR 75 MG CAP.SR.24H PO SCH (09:01)
[2021-02-16] MEDS: GABAPENTIN 100 MG CAPSULE PO SCH ×3 (09:01→17:41)
[2021-02-16] MEDS: CYANOCOBALAMIN 500 MCG TABLET PO SCH (09:01)
[2021-02-16] MEDS: GUAIFENESIN LA 600 MG TABLET.SA PO SCH ×2 (09:01→21:27)
[2021-02-16] MEDS: DEXAMETHASONE 4 MG TABLET PO SCH (09:02)
[2021-02-16] MEDS: QUETIAPINE FUMARATE 25 MG TABLET PO SCH ×2 (09:02→17:41)
[2021-02-16 09:04] LABS: ALANINE AMINOTRANSFERASE 15 U/L (12-78); ALBUMIN 2.6 g/dL (3.4-5.0); ALKALINE PHOSPHATASE 47 U/L (46-116); ASPARTATE AMINOTRANSFERASE 21 U/L (15-37); BILIRUBIN,TOTAL 0.3 mg/dL (0.2-1.0); CALCIUM, SERUM 8.2 mg/dL (8.5-10.1); CARBON DIOXIDE 22 mmol/L (21-32); CHLORIDE 103 mmol/L (98-107); CREATININE 1.6 mg/dL (0.6-1.3); GLUCOSE 100 mg/dL (74-106); MAGNESIUM 2.2 mg/dL (1.8-2.4); PHOSPHORUS 2.8 mg/dL (2.5-4.9); SODIUM SERUM 138 mmol/L (136-145); TOTAL PROTEIN, SERUM 7.9 g/dL (6.4-8.2); UREA NITROGEN, BLOOD 34 mg/dL (7-18)
--- NOTE | 2021-02-16 09:20 | NUR ---
RT NOTE ABG RESULTS PLACED IN PATIENT'S CHART. NELL [place].
[2021-02-16 15:34] VITALS: BP 128/65
--- NOTE | 2021-02-16 19:30 | NUR ---
RN OPENING NOTES: RECEIVED PT A/OX1 IN BED RESTING COMFORTABLY. PATIENT IN NO S/SX OF ACUTE DISTRESS AT THIS TIME. NO SOB NOTED. PATIENT'S BREATHING IS EVEN AND UNLABORED. PATIENT IS ON 3L OF OXYGEN VIA NC; TOLERATING WELL. PATIENT ON TELE MONITORING READING SINUS RHYTHM HR IS @70s AT THE TIME OF RECEIVED. PATIENT ON PUREED DIET; TOLERATES WELL. NOTED IV SITE ON R HAND #22; PATENT, INTACT AND FLUSHING WELL; NO S/S OF INFECTION OR INFILTRATION. WITH BILATERAL SOFT RESTRAINTS IN PLACED, MONITORED AND ASSESSED PER PROTOCOL. SAFETY MEASURES HAVE BEEN PROVIDED AND IMPLEMENTED. PATIENT BED ALARM IS ON. HEAD OF BED ELEVATED. BED IS LOCKED, IN LOWEST POSITION AND SIDE RAILS UP. CALL LIGHT WITHIN REACH OF THE PATIENT. APPLICABLE ISOLATION PRECAUTIONS IN PLACE. WILL CONTINUE TO MONITOR AND REASSESS FOR ANY CHANGES AND WILL CARRY OUT ANY ONGOING AND ACTIVE MD ORDER.
[2021-02-16 20:00] VITALS: BP 138/85
--- NOTE | 2021-02-16 23:25 | NUR ---
RN NOTES FAMILY CALLED ([phone]) PROVIDED GENERAL UPDATES ; BASIC TX AND V/S. ADVISED TO CALL IN THE AM IF NEED SPECIFIC INFO FROM , FAMILY ACKNOWLEDGED. ADVISED THAT RN WILL GIVE A CALL IF THERE'S ANY SIGNIFICANT UPDATES OR CHANGES TO PT. ODIN ACKNOWLEDGED. RN NOTES
[2021-02-17] VITALS: BP 149/83
--- NOTE | 2021-02-17 | NUR ---
RN NOTES PATIENT REMAINED TO BE IN NO SIGNS OF ACUTE RESPIRATORY DISTRESS , VITAL SIGNS WNL AT THIS TIME. COAL TRIMMER MADE AWARE. WILL CONTINUE TO MONITOR AND REASSESS FOR ANY CHANGES THROUGHOUT THE SHIFT.
[2021-02-17 04:00] VITALS: BP 148/64
--- NOTE | 2021-02-17 04:00 | NUR ---
RN NOTES NO NOTED CHANGES IN PATIENT CONDITION AT THIS TIME; NO SIGNS OF ACUTE RESPIRATORY DISTRESS; 02 SAT REMAINS >95%. AM PATIENT CARE RENDERED.WILL CONTINUE TO MONITOR AND REASSESS FOR ANY CHANGES THROUGHOUT THE SHIFT.
--- NOTE | 2021-02-17 06:51 | NUR ---
RN CLOSING NOTE: PATIENT REMAINS IN ROOM IN NO SIGNS OF RESPIRATORY DISTRESS, PATIENT STILL ON 3L OF O2 VIA NC ;TOLERATING WELL SATURATING @ >95% SP02. SAFETY MEASURES IMPLEMENTED, BED IN LOWEST POSITION, LOCKED, SIDE RAILS UP, CALL LIGHT WITHIN REACH. ALL NEEDS AND ORDERS ADDRESSED DURING THE SHIFT. IV ACCESS MAINTAINED INTACT, SECURED AND FLUSHING WELL. ALL DUE MEDS GIVEN ORDERED & SCHEDULED ; PATIENT TOLERATED WELL. PATIENT KEPT CLEAN AND COMFORTABLE WITHIN THE SHIFT. PATIENT ENDORSED TO INCOMING SHIFT RN WITH STABLE VITAL SIGN AND FOR CONTINUITY OF CARE.
[2021-02-17 08:00] VITALS: BP 155/86
[2021-02-17] MEDS: DOCUSATE SODIUM LIQ 100 MG/10 ML UDC PO SCH ×2 (08:30→17:43)
[2021-02-17] MEDS: GUAIFENESIN LA 600 MG TABLET.SA PO SCH ×2 (08:31→21:06)
[2021-02-17] MEDS: FAMOTIDINE (20 MG) 20 MG TABLET PO SCH ×2 (08:31→21:06)
[2021-02-17] MEDS: MEMANTINE HCL 5 MG TABLET PO SCH ×2 (08:31→17:43)
[2021-02-17] MEDS: VENLAFAXINE XR 75 MG CAP.SR.24H PO SCH (08:31)
[2021-02-17] MEDS: DEXAMETHASONE 4 MG TABLET PO SCH (08:32)
[2021-02-17] MEDS: CYANOCOBALAMIN 500 MCG TABLET PO SCH (08:33)
[2021-02-17] MEDS: GABAPENTIN 100 MG CAPSULE PO SCH ×3 (08:33→17:43)
[2021-02-17] MEDS: QUETIAPINE FUMARATE 25 MG TABLET PO SCH ×2 (08:34→17:43)
[2021-02-17] MEDS: NEPRO VAN 237 ML CAN PO SCH ×3 (08:59→17:44)
[2021-02-17 12:00] VITALS: BP 158/86
[2021-02-17 16:00] VITALS: BP 124/79
--- NOTE | 2021-02-17 19:20 | NUR ---
RN NOTE RECEIVED PATIENT IN BED, RESTING. AROUSABLE TO NAME AND TOUCH. BREATHING EVEN AND UNLABORED. NO DISTRESS NOTED. ON 3L/MIN NC. TOLERATING WELL. ON TELEMETRY MONITORING, SR AT 75 BPM. SKIN WARM AND DRY. NOTED WITH BILATERAL SOFT WRIST RESTRAINT. CAPILLARY REFILL WNL. NOTED WITH RIGHT HAND 22G, PATENT. BED LOW, IN LOCKED POSITION. ALL NEEDS ATTENDED AT THIS TIME. CALL LIGHT WITHIN REACH.
[2021-02-17 20:00] VITALS: BP 169/91
--- NOTE | 2021-02-17 23:14 | NUR ---
RN NOTE PATIENT NOTED WITH BLOOD PRESSURE OF 162/100 AFTER 3 ATTEMPTS, AND HEART RATE OF 74. PATIENT WITHOUT SCHEDULED BP MEDICATION AND WITHOUT BP PRN MEDICATION. INFORMED CHARGE NURSE. INFORMED DR. CARABALLO, DISCUSSED SITUATION. NEW ORDER OF AMLODIPINE 5 MG BY MOUTH, DAILY. FIRST DOSE TO START NOW. NOTED AND CARRIED OUT. WILL CONTINUE TO MONITOR.
[2021-02-17] MEDS: AMLODIPINE BESYLATE 5 MG TABLET PO SCH (23:21)
[2021-02-18] VITALS: BP 166/90
[2021-02-18 04:00] VITALS: BP 150/98
[2021-02-18 06:28] LABS: BASOPHILS % (AUTO) 0.5 % (0.0-2.0); EOSINOPHILS % (AUTO) 1.6 % (0.0-6.0); HEMATOCRIT 30 % (33-45); HEMOGLOBIN 9.7 g/dL (11.5-14.8); LYMPHOCYTES # (AUTO) 0.9 K/uL (0.8-4.8); LYMPHOCYTES % (AUTO) 11.3 % (20.0-44.0); MEAN CORPUSCULAR HGB CONC 32 g/dl (31.0-36.0); MEAN CORPUSCULAR VOLUME 80 fL (82-100); MONOCYTES # (AUTO) 0.7 K/uL (0.1-1.30); MONOCYTES % (AUTO) 9.4 % (2.0-12.0); NEUTROPHILS % (AUTO) 77.2 % (43.0-81.0); PLATELET COUNT (AUTO) 400 K/uL (150-450); RED BLOOD CELL COUNT(AUTO) 3.75 MIL/uL (4.0-5.2); WHITE BLOOD COUNT (AUTO) 7.7 K/uL (4.3-11.0)
[2021-02-18 06:55] LABS: CALCIUM, SERUM 9.2 mg/dL (8.5-10.1); CARBON DIOXIDE 28 mmol/L (21-32); CHLORIDE 102 mmol/L (98-107); CREATININE 1.5 mg/dL (0.6-1.3); GLUCOSE 85 mg/dL (74-106); POTASSIUM 4.9 mmol/L (3.5-5.1); SODIUM SERUM 138 mmol/L (136-145); UREA NITROGEN, BLOOD 42 mg/dL (7-18)
--- NOTE | 2021-02-18 07:39 | NUR ---
RN OPENING NOTE PATIENT RECEIVED IN BED, ASLEEP. PATIENT ON 4L O2 NC WITH NO SIGNS OF LABORED BREATHING AT THIS TIME. RESTRAINS ON, SKIN WARM AND INTACT. RIGHT HAND 22G PIV IN PLACE, PATENT WITH NO SIGNS OF INFILTRATION. NO SIGNS OF DISTRESS NOTED AT THIS TIME. BED LOCKED AND IN LOWEST POSITION, 2 SIDE RAILS UP, CALL LIGHT WITHIN REACH. WILL CONTINUE TO MONITOR.
[2021-02-18 08:00] VITALS: BP 145/74
[2021-02-18] MEDS: NEPRO VAN 237 ML CAN PO SCH ×3 (08:00→16:24)
[2021-02-18] MEDS: DOCUSATE SODIUM LIQ 100 MG/10 ML UDC PO SCH ×2 (08:35→16:24)
[2021-02-18] MEDS: GUAIFENESIN LA 600 MG TABLET.SA PO SCH ×2 (08:36→20:37)
[2021-02-18] MEDS: QUETIAPINE FUMARATE 25 MG TABLET PO SCH ×2 (08:36→16:24)
[2021-02-18] MEDS: FAMOTIDINE (20 MG) 20 MG TABLET PO SCH ×2 (08:36→20:37)
[2021-02-18] MEDS: DEXAMETHASONE 4 MG TABLET PO SCH (08:36)
[2021-02-18] MEDS: MEMANTINE HCL 5 MG TABLET PO SCH ×2 (08:36→16:24)
[2021-02-18] MEDS: VENLAFAXINE XR 75 MG CAP.SR.24H PO SCH (08:36)
[2021-02-18] MEDS: CYANOCOBALAMIN 500 MCG TABLET PO SCH (08:36)
[2021-02-18] MEDS: GABAPENTIN 100 MG CAPSULE PO SCH ×3 (08:36→16:24)
[2021-02-18] MEDS: AMLODIPINE BESYLATE 5 MG TABLET PO SCH (08:37)
--- NOTE | 2021-02-18 09:36 | NUR ---
RN NOTE PATIENT CURRENTLY ON 4L O2 NC SATURATING AT 94% WITH NO SIGNS OF DISTRESS AT THIS TIME. PATIENT SATURATING AT 86% ON ROOM AIR AT REST.
[2021-02-18 12:00] VITALS: BP 136/80
[2021-02-18 14:18] LABS: BAND % (MANUAL) 1 % (0.0-5.0); LYMPHOCYTES % (MANUAL) 14 % (16-48); MONOCYTES % (MANUAL) 9 % (0-11.0); MYELOCYTES % 1 % (0-0); NEUTROPHILS % (MANUAL) 75 (42-76)
[2021-02-18 16:00] VITALS: BP 137/68
--- NOTE | 2021-02-18 18:27 | NUR ---
RN NOTE FACE TO FACE ASSESSMENT DONE AT BEDSIDE, SKIN WARM AND INTACT. PATIENT STILL AT HIGH RISK OF PULLING LINES DUE TO MENTAL CONFUSION. SOFT WRIST RESTRAIN ORDER RENEWED PER MD ORDER.
--- NOTE | 2021-02-18 18:40 | NUR ---
RN CLOSING NOTE PATIENT IN BED, ASLEEP. PATIENT ON 4L O2 NC WITH NO SIGNS OF LABORED BREATHING AT THIS TIME. RIGHT HAND 22G PIV IN PLACE, PATENT WITH NO SIGNS OF INFILTRATION. NO SIGNS OF DISTRESS NOTED AT THIS TIME. BED LOCKED AND IN LOWEST POSITION, CALL LIGHT WITHIN REACH, 2 SIDE RAILS UP, ALL SAFETY MEASURES IMPLEMENTED. WILL ENDORSE TO BLAST FURNACE KEEPER HELPER NURSE.
[2021-02-18 20:00] VITALS: BP 148/87
[2021-02-19] VITALS: BP 138/83
[2021-02-19 04:00] VITALS: BP 135/65
--- NOTE | 2021-02-19 06:58 | NUR ---
RN NOTE NO SIGNIFICANT CHANGES DURING SHIFT. PATIENT AOX1. EASILY AROUSABLE. BREATHING EVEN AND UNLABORED. ON 4L/MIN NC, TOLERATING WELL. PATIENT WITH BILATERAL SOFT WRIST RESTRAINTS. CAPILLARY REFILL WNL. PATIENT COOPERATES WITH PASSIVE RANGE OF MOTION. KEPT CLEAN AND DRY. OFFERED FLUIDS FOR ADEQUATE HYDRATION. BED LOCKED, IN LOW POSITION, CALL LIGHT WITHIN REACH.
[2021-02-19] MEDS: NEPRO VAN 237 ML CAN PO SCH ×2 (07:33→11:52)
--- NOTE | 2021-02-19 07:44 | NUR ---
HOOP RIVETING MACHINE OPERATOR HELPER NOTES RECEIVED PT AWAKE IN BED RESTING IN SEMI-FOWLERS POSITION WITH O2 SATURATION OF 93%, WITH BILATERAL SOFT WRIST RESTRAINTS. PT HAS A R HAND 22G, FLUSHED, PATENT, WITH DRESSING IN TACT. SAFETY MEASURES IN PLACE WITH BED IN LOWEST LOCKED POSITION, CALL LIGHT WITHIN REACH AND BED ALARM ON.
[2021-02-19 08:00] VITALS: BP 142/84
[2021-02-19] MEDS: GUAIFENESIN LA 600 MG TABLET.SA PO SCH (09:06)
[2021-02-19] MEDS: DOCUSATE SODIUM LIQ 100 MG/10 ML UDC PO SCH (09:06)
[2021-02-19 09:07] VITALS: BP 142/84
[2021-02-19] MEDS: DEXAMETHASONE 4 MG TABLET PO SCH (09:07)
[2021-02-19] MEDS: AMLODIPINE BESYLATE 5 MG TABLET PO SCH (09:07)
[2021-02-19] MEDS: FAMOTIDINE (20 MG) 20 MG TABLET PO SCH (09:07)
[2021-02-19] MEDS: MEMANTINE HCL 5 MG TABLET PO SCH (09:07)
[2021-02-19] MEDS: GABAPENTIN 100 MG CAPSULE PO SCH ×2 (09:08→13:01)
[2021-02-19] MEDS: QUETIAPINE FUMARATE 25 MG TABLET PO SCH (09:08)
[2021-02-19] MEDS: CYANOCOBALAMIN 500 MCG TABLET PO SCH (09:08)
[2021-02-19] MEDS: VENLAFAXINE XR 75 MG CAP.SR.24H PO SCH (09:08)
--- NOTE | 2021-02-19 15:15 | NUR ---
RN NOTES AMBULANCE ARRIVED. DISCHARGE CARE COORDINATED WITH POT FIRER, GREGORY. MAURISIO PILLAI INFORMED OF ORTHOTIC PRACTITIONER TIME. IV ACCESS REMOVED AND DRESSING APPLIED, WITH NO SIGNS OF BLEEDING. PT SHOWING NO S/SX OF PAIN OR RESPIRATORY DISTRESS AT THIS TIME. DISCHARGE INSTRUCTIONS GIVE TO AMBULANCE.
== END 2021-02-19 15:50 | disposition home health service (06) | DRG 177 ==
LOC: ER 00:11 → TRANSITION 06:11 → MEDSG1 08:23 → TELE1 02-13 21:22 → MEDSG1 02-14 08:13 → TELE1 02-16 08:02
PROVIDERS: ADMIT Internal Medicine; ATTEND Internal Medicine
PROC: 05HC33Z Insertion of Infusion Device into Left Basilic Vein, Percutaneous Approach (ICD-10-PCS; principal; 2021-02-08)
PROC: XW033E5 Introduction of Remdesivir Anti-infective into Peripheral Vein, Percutaneous Approach, New Technology Group 5 (ICD-10-PCS; 2021-02-11)
DX: U07.1 COVID-19 (principal); J12.82 Pneumonia due to coronavirus disease 2019; J96.01 Acute respiratory failure with hypoxia; N17.9 Acute kidney failure, unspecified; N18.4 Chronic kidney disease, stage 4 (severe); I13.0 Hypertensive heart and chronic kidney disease with heart failure and stage 1 through stage 4 chronic kidney disease, or unspecified chronic kidney disease; E44.1 Mild protein-calorie malnutrition; E87.6 Hypokalemia; K52.9 Noninfective gastroenteritis and colitis, unspecified; F03.90 Unspecified dementia, unspecified severity, without behavioral disturbance, psychotic disturbance, mood disturbance, and anxiety; I50.9 Heart failure, unspecified; R62.7 Adult failure to thrive; E86.0 Dehydration; D63.1 Anemia in chronic kidney disease; F01.50 Vascular dementia, unspecified severity, without behavioral disturbance, psychotic disturbance, mood disturbance, and anxiety; Z98.890 Other specified postprocedural states; Z79.82 Long term (current) use of aspirin; Z79.899 Other long term (current) drug therapy; E78.5 Hyperlipidemia, unspecified; D75.839 Thrombocytosis, unspecified; F32.A Depression, unspecified; F41.9 Anxiety disorder, unspecified; Z87.891 Personal history of nicotine dependence; K59.00 Constipation, unspecified; I70.0 Atherosclerosis of aorta; G89.29 Other chronic pain; M19.90 Unspecified osteoarthritis, unspecified site; D72.810 Lymphocytopenia; T38.0X5A Adverse effect of glucocorticoids and synthetic analogues, initial encounter; Y92.89 Other specified places as the place of occurrence of the external cause; F09 Unspecified mental disorder due to known physiological condition; G47.00 Insomnia, unspecified
CPT/HCPCS: 36415; 36600; 71045-TC; 80048-TC; 80053-TC; 80076-TC; 82803-TC; 83690-TC; 83735-TC; 83880; 84100-TC; 84484-TC; 85025-TC; 85378-TC; 86140-TC; 87040-TC; 87081-TC; 87086-TC; 92521; 92526; 94799-TC; 97112-TC; 97530-TC; A4216; A6403; C9803; G0378; J0692; J0696; J0744; J1644; J1940; J2060; J2270; J2405; J3480; J7030; J7042; J7050; J7060; J8540; U0003

== ENCOUNTER 2021-04-19 04:22 | Inpatient (IN) | payer MEDICARE ==
[~2021-04-19] VITALS: Ht 157.5 cm; Wt 60.8 kg
[~2021-04-19 04:22] MED LIST changes: +ACET325T53 PO; +AMLO-212 PO; -ASPI-1169 PO; -ATOR40TA PO; +CHOL100062 PO; +CIPR-262 PO; -DOCU-141 PO; +FERR325T23 PO; +GABA-532 PO; -GABA-534 PO; -GABA600T12 PO; -LEVO500T23 PO; +LUBI24CA5 PO; -MELO-107 PO; +METR-147 PO; -OSEL75CA PO; -POLY17PO4 PO
[2021-04-19 05:05] VITALS: BP 155/105
[2021-04-19] MEDS ORDERED: ZOLPIDEM TARTRATE 5 MG TABLET PO PRN (05:30)
[2021-04-19] MEDS ORDERED: BLOOD SUGAR DIAGNOSTIC 1 EACH STRIP IN ONE (05:30)
[2021-04-19] MEDS ORDERED: MAGNESIUM HYDROXIDE 30 ML UDC PO PRN (05:30)
[2021-04-19] MEDS ORDERED: MAG HYDROX/AL HYDROX/SIMETH 30 ML UDC PO PRN (05:30)
[2021-04-19] MEDS ORDERED: ACETAMINOPHEN 325 MG TABLET PO PRN (05:30)
[2021-04-19] MEDS ORDERED: LORAZEPAM 0.5 MG TABLET PO PRN (05:30)
[2021-04-19 05:45] VITALS: BP 152/89
[2021-04-19] MEDS ORDERED: FAMO20TA8 PO (06:39)
[2021-04-19] MEDS ORDERED: QUET25TA PO (06:39)
[2021-04-19] MEDS ORDERED: FURO-145 PO (06:39)
[2021-04-19] MEDS ORDERED: DIPH-530 PO (06:46)
[2021-04-19] MEDS ORDERED: DOXY100C2 PO (06:46)
[2021-04-19] MEDS ORDERED: DIPH25TA25 PO (06:48)
[2021-04-19 08:00] VITALS: BP 143/86
[2021-04-19] MEDS: FUROSEMIDE 20 MG TABLET PO SCH (09:50)
[2021-04-19] MEDS: GABAPENTIN 100 MG CAPSULE PO SCH ×3 (09:50→16:37)
[2021-04-19] MEDS: FAMOTIDINE (20 MG) 20 MG TABLET PO SCH ×2 (09:50→16:38)
[2021-04-19] MEDS: DOCUSATE SODIUM 100 MG CAPSULE PO SCH ×2 (09:50→16:42)
[2021-04-19] MEDS: VENLAFAXINE XR 75 MG CAP.SR.24H PO SCH (09:51)
[2021-04-19 16:00] VITALS: BP 138/85
[2021-04-19] MEDS: MEMANTINE HCL 5 MG TABLET PO SCH (16:37)
[2021-04-19] MEDS: DOXYCYCLINE HYCLATE (100 MG) 100 MG TABLET PO SCH (16:37)
[2021-04-19] MEDS: LORAZEPAM 0.5 MG TABLET PO PRN (17:50)
[2021-04-19 20:00] VITALS: BP 143/94
[2021-04-19] MEDS ORDERED: MIRTAZAPINE 15 MG TABLET PO SCH (22:00)
[2021-04-19] MEDS: QUETIAPINE FUMARATE 25 MG TABLET PO SCH (22:13)
[2021-04-20 08:00] VITALS: BP 146/90
[2021-04-20] MEDS: FUROSEMIDE 20 MG TABLET PO SCH (08:02)
[2021-04-20] MEDS: LORAZEPAM 0.5 MG TABLET PO PRN ×2 (08:02→20:13)
[2021-04-20] MEDS: VENLAFAXINE XR 75 MG CAP.SR.24H PO SCH (08:02)
[2021-04-20] MEDS: FAMOTIDINE (20 MG) 20 MG TABLET PO SCH ×2 (08:02→16:13)
[2021-04-20] MEDS: DOXYCYCLINE HYCLATE (100 MG) 100 MG TABLET PO SCH ×2 (08:02→16:13)
[2021-04-20] MEDS: GABAPENTIN 100 MG CAPSULE PO SCH ×3 (08:02→16:13)
[2021-04-20] MEDS: MEMANTINE HCL 5 MG TABLET PO SCH ×2 (08:02→16:13)
[2021-04-20] MEDS: DOCUSATE SODIUM 100 MG CAPSULE PO SCH ×2 (08:02→16:14)
[2021-04-20 16:00] VITALS: BP 137/92
[2021-04-20 17:36] LABS: BASOPHILS # (AUTO) 0.1 K/uL (0.0-0.2); BASOPHILS % (AUTO) 0.6 % (0.0-2.0); EOSINOPHILS % (AUTO) 1.6 % (0.0-6.0); HEMATOCRIT 34 % (33-45); HEMOGLOBIN 10.8 g/dL (11.5-14.8); LYMPHOCYTES # (AUTO) 2.1 K/uL (0.8-4.8); LYMPHOCYTES % (AUTO) 25.5 % (20.0-44.0); MEAN CORPUSCULAR HGB CONC 32 g/dl (31.0-36.0); MEAN CORPUSCULAR VOLUME 82 fL (82-100); MONOCYTES # (AUTO) 0.6 K/uL (0.1-1.30); MONOCYTES % (AUTO) 7.9 % (2.0-12.0); NEUTROPHILS # (AUTO) 5.3 K/uL (1.8-8.9); NEUTROPHILS % (AUTO) 64.4 % (43.0-81.0); PLATELET COUNT (AUTO) 240 K/uL (150-450); RED BLOOD CELL COUNT(AUTO) 4.21 MIL/uL (4.0-5.2); WHITE BLOOD COUNT (AUTO) 8.2 K/uL (4.3-11.0)
[2021-04-20 18:03] LABS: ALANINE AMINOTRANSFERASE 12 U/L (12-78); ALBUMIN 3.5 g/dL (3.4-5.0); ALKALINE PHOSPHATASE 63 U/L (46-116); ASPARTATE AMINOTRANSFERASE 25 U/L (15-37); BILIRUBIN,TOTAL 0.3 mg/dL (0.2-1.0); CALCIUM, SERUM 8.5 mg/dL (8.5-10.1); CARBON DIOXIDE 22 mmol/L (21-32); CHLORIDE 102 mmol/L (98-107); CREATININE 2.2 mg/dL (0.6-1.3); GLUCOSE 123 mg/dL (74-106); POTASSIUM 3.5 mmol/L (3.5-5.1); SODIUM SERUM 138 mmol/L (136-145); TOTAL PROTEIN, SERUM 9.3 g/dL (6.4-8.2); UREA NITROGEN, BLOOD 42 mg/dL (7-18)
[2021-04-20 18:04] LABS: CHOLESTEROL 250 mg/dL (<200); HDL CHOLESTEROL 48 mg/dL (40-60); LDL 151 mg/dL (0-99); THYROID STIMULATING HORMONE 4.621 uIU/mL (0.358-3.74); TRIGLYCERIDES 276 mg/dL (30-150)
[2021-04-20 20:00] VITALS: BP 146/92
[2021-04-20] MEDS: Z GUARD REMEDY 4 OZ OINT TP SCH (20:20)
[2021-04-20] MEDS: QUETIAPINE FUMARATE 25 MG TABLET PO SCH (21:40)
[2021-04-21 08:00] VITALS: BP 145/77
[2021-04-21] MEDS: GABAPENTIN 100 MG CAPSULE PO SCH ×3 (09:03→16:05)
[2021-04-21] MEDS: MEMANTINE HCL 5 MG TABLET PO SCH ×2 (09:03→16:05)
[2021-04-21] MEDS: FAMOTIDINE (20 MG) 20 MG TABLET PO SCH ×2 (09:03→16:05)
[2021-04-21] MEDS: DOCUSATE SODIUM 100 MG CAPSULE PO SCH ×2 (09:03→16:05)
[2021-04-21] MEDS: VENLAFAXINE XR 75 MG CAP.SR.24H PO SCH (09:03)
[2021-04-21] MEDS: DOXYCYCLINE HYCLATE (100 MG) 100 MG TABLET PO SCH ×2 (09:03→16:05)
[2021-04-21] MEDS: FUROSEMIDE 20 MG TABLET PO SCH (09:04)
[2021-04-21] MEDS: Z GUARD REMEDY 4 OZ OINT TP SCH ×2 (10:19→21:08)
[2021-04-21 16:00] VITALS: BP 151/95
[2021-04-21 20:00] VITALS: BP 144/99
[2021-04-21] MEDS: QUETIAPINE FUMARATE 25 MG TABLET PO SCH (21:54)
[2021-04-22 08:00] VITALS: BP 118/71
[2021-04-22] MEDS: MEMANTINE HCL 5 MG TABLET PO SCH ×2 (08:29→16:40)
[2021-04-22] MEDS: FAMOTIDINE (20 MG) 20 MG TABLET PO SCH ×2 (08:29→16:40)
[2021-04-22] MEDS: FUROSEMIDE 20 MG TABLET PO SCH (08:29)
[2021-04-22] MEDS: DOCUSATE SODIUM 100 MG CAPSULE PO SCH ×2 (08:29→16:40)
[2021-04-22] MEDS: DOXYCYCLINE HYCLATE (100 MG) 100 MG TABLET PO SCH ×2 (08:29→16:40)
[2021-04-22] MEDS: GABAPENTIN 100 MG CAPSULE PO SCH ×3 (08:29→16:40)
[2021-04-22] MEDS: VENLAFAXINE XR 75 MG CAP.SR.24H PO SCH (08:30)
[2021-04-22] MEDS: Z GUARD REMEDY 4 OZ OINT TP SCH ×2 (08:30→21:13)
[2021-04-22 11:05] LABS: CALCIUM, SERUM 8.5 mg/dL (8.5-10.1); CARBON DIOXIDE 22 mmol/L (21-32); CHLORIDE 103 mmol/L (98-107); GLUCOSE 104 mg/dL (74-106); POTASSIUM 3.3 mmol/L (3.5-5.1); SODIUM SERUM 137 mmol/L (136-145); UREA NITROGEN, BLOOD 34 mg/dL (7-18)
[2021-04-22] MEDS ORDERED: POTASSIUM CHLORIDE 20 MEQ TAB.PRT.SR PO ONE (13:00)
[2021-04-22] MEDS: LORAZEPAM 0.5 MG TABLET PO PRN (13:58)
[2021-04-22 18:22] VITALS: BP 133/60
[2021-04-22 19:52] VITALS: BP 142/86
[2021-04-22 20:20] VITALS: BP 142/86
[2021-04-22] MEDS: QUETIAPINE FUMARATE 25 MG TABLET PO SCH (21:12)
[2021-04-23] MEDS: Z GUARD REMEDY 4 OZ OINT TP PRN ×3 (03:15→21:53)
[2021-04-23 08:00] VITALS: BP 141/85
[2021-04-23] MEDS: Z GUARD REMEDY 4 OZ OINT TP SCH ×2 (08:25→21:54)
[2021-04-23] MEDS: MEMANTINE HCL 5 MG TABLET PO SCH ×2 (08:31→16:50)
[2021-04-23] MEDS: GABAPENTIN 100 MG CAPSULE PO SCH ×3 (08:31→16:50)
[2021-04-23] MEDS: FAMOTIDINE (20 MG) 20 MG TABLET PO SCH ×2 (08:31→16:50)
[2021-04-23] MEDS: VENLAFAXINE XR 75 MG CAP.SR.24H PO SCH (08:31)
[2021-04-23] MEDS: DOCUSATE SODIUM 100 MG CAPSULE PO SCH ×2 (08:31→16:48)
[2021-04-23] MEDS: FUROSEMIDE 20 MG TABLET PO SCH (08:31)
[2021-04-23] MEDS: DOXYCYCLINE HYCLATE (100 MG) 100 MG TABLET PO SCH ×2 (08:31→16:50)
[2021-04-23 08:45] LABS: CALCIUM, SERUM 8.5 mg/dL (8.5-10.1); CARBON DIOXIDE 22 mmol/L (21-32); CHLORIDE 106 mmol/L (98-107); CREATININE 1.9 mg/dL (0.6-1.3); GLUCOSE 84 mg/dL (74-106); POTASSIUM 3.7 mmol/L (3.5-5.1); SODIUM SERUM 137 mmol/L (136-145); UREA NITROGEN, BLOOD 33 mg/dL (7-18)
[2021-04-23 16:00] VITALS: BP 126/78
[2021-04-23 20:00] VITALS: BP 156/92
[2021-04-23] MEDS: QUETIAPINE FUMARATE 25 MG TABLET PO SCH (22:19)
[2021-04-24 08:00] VITALS: BP 146/97
[2021-04-24 08:57] LABS: CALCIUM, SERUM 8.2 mg/dL (8.5-10.1); CARBON DIOXIDE 24 mmol/L (21-32); CHLORIDE 104 mmol/L (98-107); CREATININE 1.9 mg/dL (0.6-1.3); GLUCOSE 87 mg/dL (74-106); POTASSIUM 3.5 mmol/L (3.5-5.1); SODIUM SERUM 140 mmol/L (136-145); UREA NITROGEN, BLOOD 31 mg/dL (7-18)
[2021-04-24] MEDS: VENLAFAXINE XR 75 MG CAP.SR.24H PO SCH (09:02)
[2021-04-24] MEDS: GABAPENTIN 100 MG CAPSULE PO SCH ×3 (09:02→16:26)
[2021-04-24] MEDS: DOCUSATE SODIUM 100 MG CAPSULE PO SCH ×2 (09:02→16:26)
[2021-04-24] MEDS: MEMANTINE HCL 5 MG TABLET PO SCH ×2 (09:02→16:26)
[2021-04-24] MEDS: FAMOTIDINE (20 MG) 20 MG TABLET PO SCH ×2 (09:03→16:26)
[2021-04-24] MEDS: FUROSEMIDE 20 MG TABLET PO SCH (09:03)
[2021-04-24] MEDS: DOXYCYCLINE HYCLATE (100 MG) 100 MG TABLET PO SCH ×2 (09:03→16:26)
[2021-04-24] MEDS: Z GUARD REMEDY 4 OZ OINT TP SCH ×2 (09:04→21:22)
[2021-04-24 16:00] VITALS: BP 152/84
[2021-04-24 20:00] VITALS: BP 120/70
[2021-04-24] MEDS: QUETIAPINE FUMARATE 25 MG TABLET PO SCH (21:26)
[2021-04-25 08:00] VITALS: BP 130/60
[2021-04-25] MEDS: Z GUARD REMEDY 4 OZ OINT TP SCH ×2 (09:07→21:00)
[2021-04-25] MEDS: VENLAFAXINE XR 75 MG CAP.SR.24H PO SCH (09:13)
[2021-04-25] MEDS: DOCUSATE SODIUM 100 MG CAPSULE PO SCH ×2 (09:13→16:39)
[2021-04-25] MEDS: MEMANTINE HCL 5 MG TABLET PO SCH ×2 (09:13→16:39)
[2021-04-25] MEDS: GABAPENTIN 100 MG CAPSULE PO SCH ×3 (09:13→16:39)
[2021-04-25] MEDS: DOXYCYCLINE HYCLATE (100 MG) 100 MG TABLET PO SCH ×2 (09:13→16:39)
[2021-04-25] MEDS: FUROSEMIDE 20 MG TABLET PO SCH (09:13)
[2021-04-25] MEDS: FAMOTIDINE (20 MG) 20 MG TABLET PO SCH ×2 (09:13→16:39)
[2021-04-25] MEDS: CLOTRIMAZOLE 1% 15 GM TUBE TP SCH ×2 (11:19→16:35)
[2021-04-25] MEDS: LORAZEPAM 0.5 MG TABLET PO PRN (13:09)
[2021-04-25 16:00] VITALS: BP 135/70
[2021-04-25] MEDS: QUETIAPINE FUMARATE 25 MG TABLET PO SCH (22:06)
[2021-04-26 08:00] VITALS: BP 124/78
[2021-04-26] MEDS ORDERED: QUET50TA PO (09:55)
[2021-04-26] MEDS ORDERED: MEMA10TA56 PO (09:55)
[2021-04-26] MEDS ORDERED: GABA100C PO (09:55)
[2021-04-26] MEDS ORDERED: VENL75CA62 PO (09:55)
[2021-04-26] MEDS: DOXYCYCLINE HYCLATE (100 MG) 100 MG TABLET PO SCH ×2 (09:58→17:02)
[2021-04-26] MEDS: GABAPENTIN 100 MG CAPSULE PO SCH ×3 (09:58→17:03)
[2021-04-26] MEDS: FAMOTIDINE (20 MG) 20 MG TABLET PO SCH ×2 (09:58→17:03)
[2021-04-26] MEDS: DOCUSATE SODIUM 100 MG CAPSULE PO SCH ×2 (09:58→17:02)
[2021-04-26] MEDS: Z GUARD REMEDY 4 OZ OINT TP PRN (09:58)
[2021-04-26] MEDS: CLOTRIMAZOLE 1% 15 GM TUBE TP SCH ×2 (09:58→17:23)
[2021-04-26] MEDS: MEMANTINE HCL 5 MG TABLET PO SCH ×2 (09:58→17:03)
[2021-04-26] MEDS: FUROSEMIDE 20 MG TABLET PO SCH (09:58)
[2021-04-26] MEDS: VENLAFAXINE XR 75 MG CAP.SR.24H PO SCH (09:59)
[2021-04-26] MEDS: Z GUARD REMEDY 4 OZ OINT TP SCH ×2 (10:22→21:39)
[2021-04-26 16:00] VITALS: BP 110/59
[2021-04-26 20:00] VITALS: BP 141/99
[2021-04-26] MEDS: QUETIAPINE FUMARATE 25 MG TABLET PO SCH (21:38)
[2021-04-27 08:00] VITALS: BP 139/90
[2021-04-27] MEDS: GABAPENTIN 100 MG CAPSULE PO SCH (08:43)
[2021-04-27] MEDS: MEMANTINE HCL 5 MG TABLET PO SCH (08:43)
[2021-04-27] MEDS: VENLAFAXINE XR 75 MG CAP.SR.24H PO SCH (08:43)
[2021-04-27] MEDS: FUROSEMIDE 20 MG TABLET PO SCH (08:43)
[2021-04-27] MEDS: DOCUSATE SODIUM 100 MG CAPSULE PO SCH (08:44)
[2021-04-27] MEDS: FAMOTIDINE (20 MG) 20 MG TABLET PO SCH (08:44)
[2021-04-27] MEDS: DOXYCYCLINE HYCLATE (100 MG) 100 MG TABLET PO SCH (08:44)
[2021-04-27] MEDS: CLOTRIMAZOLE 1% 15 GM TUBE TP SCH (08:45)
[2021-04-27] MEDS: Z GUARD REMEDY 4 OZ OINT TP SCH (08:45)
== END 2021-04-27 12:15 | disposition home or self-care (01) | DRG 885 ==
LOC: GPS 04:22
PROVIDERS: ADMIT Psychiatry & Neurology Psychiatry; ATTEND Student in an Organized Health Care Education/Training Program
DX: F33.3 Major depressive disorder, recurrent, severe with psychotic symptoms (principal); N18.9 Chronic kidney disease, unspecified; N17.9 Acute kidney failure, unspecified; F23 Brief psychotic disorder; F03.91 Unspecified dementia, unspecified severity, with behavioral disturbance; F41.9 Anxiety disorder, unspecified; Z73.6 Limitation of activities due to disability; D63.8 Anemia in other chronic diseases classified elsewhere; R73.9 Hyperglycemia, unspecified; K21.9 Gastro-esophageal reflux disease without esophagitis; G89.29 Other chronic pain; M19.90 Unspecified osteoarthritis, unspecified site; I12.9 Hypertensive chronic kidney disease with stage 1 through stage 4 chronic kidney disease, or unspecified chronic kidney disease; Z79.899 Other long term (current) drug therapy
CPT/HCPCS: 36415; 80048-TC; 80053-TC; 80061-TC; 82962-TC; 84439-TC; 84443-TC; 85025-TC; 87081-TC; 92521; 92526; 97116-TC; 97530-TC